=== PATIENT | female | born 1985 | race African-American/Black ===

== ENCOUNTER 2024-12-16 18:33 | Emergency (ER) | payer OTHER, SELFPAY ==
--- OUTSIDE RECORDS SUMMARY | 2024-12-16 18:36 | XMS_ITS | Clinical Summary ---
Author Organization [facility] Address [address] [place] [address] Care Team Providers Care Net Programmer Name Role Phone Unknown, Notinfile Primary Care Provider Unavail able Unknown, Notinfile Unavailable Unavailable Allergies No known active allergies Medications cyclobenzaprine (FLEXERIL) 10 mg tablet Take 1 tablet (10 mg total) by mouth 3 (three) times a day as needed for muscle spasms for up to 20 doses 20 tablet 1 Active lidocaine (LIDODERM) 5 %Indications:Pain Place 1 patch on the skin daily Use patch for 12 hours on, 12 hours off. Discard after each use 7 patch 1 Active ketorolac (TORADOL) 10 mg tablet Take 1 tablet (10 mg total) by mouth every 6 (six) hours as needed for pain 20 tablet 1 Active dicyclomine (BENTYL) 20 mg tablet Take 1 tablet (20 mg total) by mouth 2 (two) times a day 20 tablet 2 Active ondansetron ODT (ZOFRAN-ODT) 4 mg disintegrating tablet Take 1 tablet (4 mg total) by mouth every 8 (eight) hours as needed for vomiting or nausea 20 tablet 5 Active HYDROcodone-acetami nophen (NORCO) 5-325 mg per tabletIndications:P ain Take 1 tablet by mouth every 6 (six) hours as needed for pain 12 tablet 5 Active docusate sodium (COLACE) 100 mg capsuleIndications: constipation Take 1 capsule (100 mg total) by mouth every 12 (twelve) hours 60 capsule Active Encounters Date Type Department Care Team Description 10/10/2024 1:49 AM LEGAL CONSULTANT - 10/10/2024 5:45 AM LEGAL CONSULTANT Emergency [facility] [address] [place] [address] Hans Vang, Vaginal bleeding affecting early (Primary Dx) Discharge Disposition: Discharge to home or self care 10/10/2024 Telephone [facility] Obstetrical Gynecology [facility] [address] [place] [phone] Ajay Haro MD from Last 3 Months Immunizations Immunization Administration Dates Next Due Pfizer SARS-CoV-2 Monovalent Vaccination (12+ Yrs) PURPLE 07/05/2021 Social History Tobacco Use Types Packs/Day Years Used Date Smoking Tobacco: Never Assessed Personal Safety Answer Date Recorded Have you ever been in or are you currently in a harmful physical or emotional relationship or is someone making you feel afraid or unsafe? Denies 10/09/2024 Comments No Sex and Gender Information Value Date Recorded Sex Assigned at Not on file Legal Sex Female 7:05 PM LEGAL CONSULTANT Gender Identity Not on file Sexual Orientation Not on file Obstetrics History Last Filed Vital Signs Vital Sign Reading Time Taken Comments Blood Pressure 121/70 10/10/2024 5:09 AM LEGAL CONSULTANT Pulse 72 10/10/2024 5:09 AM LEGAL CONSULTANT Temperature 37 C (98.6 F) 10/09/2024 9:23 PM LEGAL CONSULTANT Respiratory Rate 16 10/10/2024 5:09 AM LEGAL CONSULTANT Oxygen Saturation 100% 10/10/2024 5:09 AM LEGAL CONSULTANT Inhaled Oxygen Concentration - - Weight 77.1 kg (170 lb) 10/09/2024 9:23 PM LEGAL CONSULTANT Height 160 cm (5' 3 ) 10/09/2024 9:23 PM LEGAL CONSULTANT Body Mass Index 30.11 10/09/2024 9:23 PM LEGAL CONSULTANT Plan of Treatment Health Maintenance Due Date Last Done Comments Cervical Cancer Screening 1987 Depression Screening 1987 Hepatitis C Screening 1987 DTaP/Tdap/Td Vaccine (5 - Tdap) 1998 10/28/1991, 09/05/1991, 08/07/1988, Additional history exists Varicella Vaccines (1 of 2 - 13+ 2-dose series) 2000 Regular Well Visit/Exam 18-64 2005 Covid-19 Vaccine ( - season) 2024 07/05/2021 Influenza Vaccine (Season Ended) 2025 07/24/2018 Hepatitis B Screening Completed 10/21/1998 , 04/09/1998, 01/14/1998 HPV Vaccines Aged Out No longer eligi ble based on patient's age to complete this topic Pneumococcal vaccine <65 Aged Out No longer eligible based on patient's age to complete this topic Procedures Procedure Name Priority Date/Time Associated Diagnosis Comments US OB TRANSVAGINAL ED Urgent/IP Urgent 10/10/2024 4:11 AM LEGAL CONSULTANT TROPONIN T HIGH-SENSITIVITY 6-HOUR Timed 10/10/2024 3:44 AM LEGAL CONSULTANT B ABO / RH CONFIRMATION TESTING STAT 10/10/2024 1:59 AM LEGAL CONSULTANT TROPONIN T HIGH-SENSITIVITY 4-HR Timed 10/10/2024 1:59 AM LEGAL CONSULTANT ECG 12-LEAD STAT 10/09/2024 10:25 PM LEGAL CONSULTANT ANTIBODY SCREEN Timed 10/09/2024 10:21 PM LEGAL CONSULTANT ABO/RH Timed 10/09/2024 10:21 PM LEGAL CONSULTANT TYPE AND SCREEN Timed 10/09/2024 10:21 PM LEGAL CONSULTANT POCT HCG, URINE Routine 10/09/2024 10:14 PM LEGAL CONSULTANT URINALYSIS, MICROSCOPIC ONLY STAT 10/09/2024 10:09 PM LEGAL CONSULTANT URINE CULTURE STAT 10/09/2024 10:09 PM LEGAL CONSULTANT URINALYSIS AND REFLEX TO MICROSCOPIC AND CULTURE STAT 10/09/2024 10:09 PM LEGAL CONSULTANT EGFR STAT 10/09/2024 9:43 PM LEGAL CONSULTANT HCG, BLOOD, QUANTITATIVE Add-On 10/09/2024 9:43 PM LEGAL CONSULTANT DIFFERENTIAL AUTO STAT 10/09/2024 9:4 3 PM LEGAL CONSULTANT TROPONIN T HIGH-SENSITIVITY SERIES (BASELINE, 2HR, 4HR, 6HR) STAT 10/09/2024 9:43 PM LEGAL CONSULTANT LIPASE STAT 10/09/2024 9:43 PM LEGAL CONSULTANT COMPREHENSIVE METABOLIC PANEL STAT 10/09/2024 9:43 PM LEGAL CONSULTANT CBC WITH AUTO DIFFERENTIAL STAT 10/09/2024 9:43 PM LEGAL CONSULTANT from Last 3 Months Results * US Ob Transvaginal (10/10/2024 4:11 AM LEGAL CONSULTANT) Anatomical Region Laterality Modality Abdomen N/A Ultrasound 10/10/2024 4:16 AM LEGAL CONSULTANT Narrative 10/10/2024 4:26 AM LEGAL CONSULTANT EXAM DESCRIPTION: US OB TRANSVAGINAL REASON FOR STUDY: ectopic , pain with Beta-hC,621 TECHNIQUE: Transvaginal images acquired of the pelvis. COMPARISON: 04/01/2021 FINDINGS: UTERUS: 11 x 6 x 3 cm. Heterogeneous is 2.6 cm endometrial stripe, possible debris. No intrauterine gestation is seen. RIGHT OVARY: 3 x 1.6 x 1.3 cm. Patent blood flow. No concerning abnormality identified. LEFT OVARY: 3.5 x 2.3 x 2.3 cm. Patent blood flow. 2 cm corpus luteum with trace free fluid. IMPRESSION: No intrauterine or ectopic gestation identified. Nonspecific endometrial thickening. Left corpus luteum. THIS IS AN ELECTRONICALLY VERIFIED FINAL REPORT 10/10/2024 4:26 AM - Electronically signed by Pedro Irene M.D. AR T: Report ID: [id number] Reading Location: [id number] Procedure Note Pedro Irene MD - 10/10/2024 EXAM DESCRIPTION: US OB TRANSVAGINAL REASON FOR STUDY: ectopic , pain with Beta-hC,621 TECHNIQUE: Transvaginal images acquired of the pelvis. COMPARISON: 04/01/2021 FINDINGS: UTERUS: 11 x 6 x 3 cm. Heterogeneous is 2.6 cm endometrial stripe,possible debris. No intrauterine gestation is seen. RIGHT OVARY: 3 x 1.6 x 1.3 cm. Patent blood flow. No concerning abnormality identified. LEFT OVARY: 3.5 x 2.3 x 2.3 cm. Patent blood flow. 2 cm corpus luteumwith trace free fluid. IMPRESSION: No intrauterine or ectopic gestation identified. Nonspecific endometrial thickening. Left corpus luteum. THIS IS AN ELECTRONICALLY VERIFIED FINAL REPORT 10/10/2024 4:26 AM - Electronically signed by Pedro Irene M.D. AR T: Report ID: [id number] Reading Location: [place] [address] Hans Vang DO IMG OB US PROCEDURES Final Result * (ABNORMAL) Troponin T high-sensitivity 6-hour (10/10/2024 3:44 AM LEGAL CONSULTANT) Trop T hs 21(H) <=14 ng/L Comment: Interpretive Data For further hscTnT resources including the diagnostic algorithm and an aid in interpretation, copy and paste this link: https://nrl.testcatalog.org/show/hsTrop Current Interpretive Data last revised 2020. Trop T hs delta -7 ng/L KADEEM SANCHEZ Trop T hs interp Equivocal KADEEM SANCHEZ Blood 10/10/2024 3:44 AM LEGAL CONSULTANT 10/10/2024 3:47 AM LEGAL CONSULTANT Tushar Meyer MD LAB BLOOD ORDERABLES Final Result KADEEM SANCHEZ [address] [facility] Department of Laboratories [place], [place] [id number] * (ABNORMAL) Troponin T high-sensitivity 4-hour (10/10/2024 1:59 AM LEGAL CONSULTANT) Pathologist [facility] Trop T hs 23(H) <=14 ng/L Comment: Interpretive Data For further hscTnT resources including the diagnostic algorithm and an aid in interpretation, copy and paste this link: https://nrl.testcatalog.org/show/hsTrop Current Interpretive Data last revised 2020. Trop T hs delta -5 ng/L [facility] Trop T hs interp Equivocal [facility] Blood 10/10/2024 1:59 AM LEGAL CONSULTANT 10/10/2024 2:02 AM LEGAL CONSULTANT Tushar Meyer MD LAB BLOOD ORDERABLES Final Result Performing Organization Address [facility] Co de Phone Number [address] [place] [address] * ABO / Rh Confirmation Testing (10/10/2024 1:59 AM LEGAL CONSULTANT) [facility] ABO/Rh Confirmation A Positive [facility] Blood 10/10/2024 1:59 AM LEGAL CONSULTANT 10/10/2024 2:02 AM LEGAL CONSULTANT Jania LIU LAB BLOOD ORDERABLES Final R esult Performing Organization Address [facility] Co de Phone Number [address] [place] [address] [facility] * ECG 12 lead (10/09/2024 10:25 PM LEGAL CONSULTANT) [facility] Ventricular Rate EKG/Min 72 BPM [facility] Atrial Rate 72 BPM [facility] OK-Interval (MSEC) 152 ms [facility] QRS-Interval (MSEC) 72 ms [facility] QT-Interval (MSEC) 362 ms [facility] QTc 396 ms [facility] P [place] 57 degrees [facility] R [place] 36 degrees [facility] T [place] 29 degrees [facility] Diagnosis Normal sinus rhythm Normal ECG Confirmed by JAX ONEIL M.D. ([id number]) on 10/10/2024 11:23:51 PM [facility] 10/09/2024 10:2 5 PM LEGAL CONSULTANT 10/10/2024 11:23 PM LEGAL CONSULTANT Result [facility] Hans Vang DO ECG ORDERABLES Final Resul t Performing Organization Address [facility] Co de Phone Number [facility] * ABO/Rh (10/09/2024 10:21 PM LEGAL CONSULTANT) ABO/Rh A Positive Blood 10/09/2024 10:2 1 PM LEGAL CONSULTANT 10/09/2024 10:25 PM LEGAL CONSULTANT Narrative [facility] - 10/09/2024 11:20 PM LEGAL CONSULTANT Has the patient had Daratumumab or Isatuximab in the past 6 months?->Unknown Result [facility] Jania LIU LAB BLOOD BANK TEST ORDERABL ES Final Result Performing Organization Address [facility] de Phone Number [address] [place] [address] * Antibody screen (10/09/2024 10:21 PM LEGAL CONSULTANT) Yehuda, indirect, Gel Interpretation Negative ABSC Blood 10/09/2024 10:2 1 PM LEGAL CONSULTANT 10/09/2024 10:25 PM LEGAL CONSULTANT Narrative [facility] 10/09/2024 11:20 PM LEGAL CONSULTANT Has the patient had Daratumumab or Isatuximab in the past 6 months?->Unknown Result [facility] Jania LIU LAB BLOOD BANK TEST ORDERABL ES Final Result Performing Organization Address [facility] de Phone Number [address] [place] [address] * (ABNORMAL) POCT hCG, urine (10/09/2024 10:14 PM LEGAL CONSULTANT) HCG, ur, POC Positive(A) Negative Lot Number [id number] QC Backgroud Clear Acceptable QC Control Line Acceptable Urine 10/09/2024 10:1 4 PM LEGAL CONSULTANT Hans Vang DO POINT OF CARE TEST ORDERABL ES Final Result * (ABNORMAL) Urinalysis reflex to microscopic and culture Urine (10/09/2024 10:09 PM LEGAL CONSULTANT) Color, ur Red(A) Yellow Clarity, ur Turbid(A) Clear [facility] Specific gravity, ur 1.031(H) 1.003 - 1.030 [facility] pH, urine 5.5 [facility] Comment: Interpretive Data U rine pH is affected by diet, medications, systemic acid-base disturbances, and renal tubular function. pH may affect urinary stone formation. For example, urine pH below 6.0 may help reduce the tendency for calcium phosphate stones and pH greater than 6.0 may reduce the tendency for uric acid stone formation. Source: [facility] Current Interpretive Data was last revised on 2017 Protein, ur ql 2+(A) Negative [facility] Glucose, ur ql Negative Negative [facility] Ketones, ur Negative Negative [facility] Bilirubin, ur Negative Negative [facility] Blood, ur 3+(A) Negative [facility] Urobilinogen, ur <2.0 <2.0 mg/dL [facility] Nitrite, ur Negative Negative [facility] Leukocyte esterase, ur 2+(A) Negative [facility] UA reflex comment Reflex to microscopic UA will be performed. [facility] Urine 10/09/2024 10:0 9 PM LEGAL CONSULTANT 10/09/2024 10:19 PM LEGAL CONSULTANT Hans Vang DO LAB MICROBIOLOGY - GENERAL ORDERABLES Final Result KADEEM [address] [facility] Department [place] [address] * (ABNORMAL) Urinalysis, microscopic only (10/09/2024 10:09 PM LEGAL CONSULTANT) WBC, ur 11-20(A) 0 - 5 /HPF RBC, ur >50(A) 0 - 2 /HPF [facility] Mucous, ur Present(A) [facility] Culture Reflex Comment Reflex to urine culture will be performed. [facility] Urine 10/09/2024 10:0 9 PM LEGAL CONSULTANT 10/09/2024 10:19 PM LEGAL CONSULTANT Hans Vang DO LAB URINE ORDERABLES Final Result Performing Organization Address [facility] de Phone Number [address] [address] * Urine culture Urine (10/09/2024 10:09 PM LEGAL CONSULTANT) Report Final Report: Less than 100,000 colonies/mL (clinically insignificant growth based on current clinical standards) Comment:Testing performed by : [facility], [address] [place] [address] Organism (CLINICALLY INSIGNIFICANT GROWTH [facility] Urine 10/09/2024 10:0 9 PM LEGAL CONSULTANT 10/10/2024 1:55 AM LEGAL CONSULTANT Narrative [facility] - 10/11/2024 6:37 AM LEGAL CONSULTANT Urine culture reflexed based upon urinalysis results. Testing performed by [facility] Microbiology Laboratory ([phone]) Tushar Meyer MD LAB MICROBIOLOGY - GENERAL ORDERABLES Final Result Performing Organization Address [facility] de Phone Number [address] [address] * (ABNORMAL) Troponin T high-sensitivity series (baseline, 2hr, 4hr, 6hr) (10/09/2024 9:43 PM LEGAL CONSULTANT) Trop T hs 28(H) <=14 ng/L Comment: Interpretive Data For further hscTnT resources including the diagnostic algorithm and an aid in interpretation, copy and paste this link: https://nrl.testcatalog.org/show/hsTrop Current Interpretive Data last revised 2020. Blood 10/09/2024 9:43 PM LEGAL CONSULTANT 10/09/2024 9:57 PM LEGAL CONSULTANT Hans Vang DO LAB BLOOD ORDERABLES Final Result Performing Organization Address [facility] Co de Phone Number KADEEM [address] Department [place] [address] * eGFR (10/09/2024 9:43 PM LEGAL CONSULTANT) [facility] eGFR >90 >=60 mL/min/1. 73 m2 Comment: Interpretive Data Reference Interval Normal >/= 90 mL/min/1.73m2 Mildly decreased* 60 - 89 mL/min/1.73m2 Mildly to moderately decreased 45 - 59 mL/min/1.73m2 Moderately to severely decreased 30 - 44 mL/min/1.73m2 Severely decreased 15 - 29 mL/min/1.73m2 Kidney Failure < 15 mL/min/1.73m2 *Relative to young adult level Estimated glomerular filtration rate is determined by the 2020 CKD-EPI equation recommended by the National Kidney Foundation (A Unifying Approach to GFR Estimation: Recommendations of the NKF-ASK Task Force on Reassessing the Inclusion of Race in Diagnosing Kidney Disease, JASN 2020). The CKD-EPI equation should not be used for patients with unstable renal function and has not been validated in children and those over 70. Current interpretive data was last reviewed 2021. Blood 10/09/2024 9:43 PM LEGAL CONSULTANT 10/09/2024 9:57 PM LEGAL CONSULTANT Hans Vang DO LAB BLOOD ORDERABLES Final Result Performing Organization Address [facility] Co de Phone Number KADEEM [address] Department [place] [address] * (ABNORMAL) Differential, auto (10/09/2024 9:43 PM LEGAL CONSULTANT) [facility] Neutrophil abs 7.4(H) 1.5 - 6.5 K/cumm Imm gran abs 0.2(H) 0.0 - 0.1 K/cumm [facility] Lymphocyte abs 1.9 0.8 - 3.3 K/cumm [facility] Monocyte abs 1.2(H) 0.2 - 0.8 K/cumm [facility] Eosinophil abs 0.2 0.0 - 0.5 K/cumm [facility] Basophil abs 0.1 0.0 - 0.1 K/cumm [facility] Neutrophil pct 68.2 % [facility] Comment: Interpretive Data Percent cell count reference ranges are not reported, since discordance with absolute values may lead to misinterpretation of CBC data. Current Interpretive Data was last revised on 2017. Imm gran pct 1.5 % [facility] Comment: Interpretive Data Percent cell count reference ranges are not reported, since discordance with absolute values may lead to misinterpretation of CBC data. Current Interpretive Data was last revised on 2017. Lymphocyte pct 17.3 % [facility] Comment: Interpretive Data Percent cell count reference ranges are not reported, since discordance with absolute values may lead to misinterpretation of CBC data. Current Interpretive Data was last revised on 2017. Monocyte pct 11.1 % [facility] Comment: Interpretive Data Percent cell count reference ranges are not reported, since discordance with absolute values may lead to misinterpretation of CBC data. Current Interpretive Data was last revised on 2017. Eosinophil pct 1.4 % [facility] Comment: Interpretive Data Percent cell count reference ranges are not reported, since discordance with absolute values may lead to misinterpretation of CBC data. Current Interpretive Data was last revised on 2017. Basophil pct 0.5 % [facility] Comment: Interpretive Data Percent cell count reference ranges are not reported, since discordance with absolute values may lead to misinterpretation of CBC data. Current Interpretive Data was last revised on 2017. Blood 10/09/2024 9:43 PM LEGAL CONSULTANT 10/09/2024 9:57 PM LEGAL CONSULTANT Hans Vang DO LAB BLOOD ORDERABLES Final Result [facility] [address] [facility] Department [place] [address] * (ABNORMAL) CBC with auto differential (10/09/2024 9:43 PM LEGAL CONSULTANT) WBC 10.8(H) 3.8 - 9.9 K/cumm Hgb 11.4(L) 11.9 - 15.5 g/dL [facility] Hct 33.1(L) 35.6 - 45.5 % [facility] Plt 284 150 - 400 K/cumm [facility] MPV 9.8 9.1 - 12.3 fL [facility] RBC 3.58(L) 3.90 - 5.20 M/cumm [facility] MCV 92.5 81.3 - 96.4 fL [facility] MCH 31.8 27.1 - 33.3 pg [facility] MCHC 34.4 32.3 - 35.7 g/dL [facility] RDW CV 12.8 11.1 - 14.9 % [facility] RDW SD 43.8 35.7 - 48.1 fL [facility] NRBC abs 0.00 0.00 - 0.01 K/cumm [facility] Blood Venous blood specimen / Unknown 10/09/2024 9:43 PM LEGAL CONSULTANT 10/09/2024 9:57 PM LEGAL CONSULTANT Hans Vang DO LAB BLOOD ORDERABLES Final Result Performing Organization Address [facility] de Phone Number [address] [employer] [place] [address] * (ABNORMAL) hCG, blood, quantitative (10/09/2024 9:43 PM LEGAL CONSULTANT) [facility] hCG, quant 45,621.0( H) 0.0 - 5.0 IUnits/L Comment: Interpretive Data Male: < 5 IU/L Non- premenopausal Female: <5 IU/L The [employer] hCG Beta Quant assay procedure was used. Results from different manufacturers or methods may not be comparable. Serial testing should be performed using the same method. Interpretive Data was last revised on 2023 Blood 10/09/2024 9:43 PM LEGAL CONSULTANT 10/09/2024 10:20 PM LEGAL CONSULTANT Jania LIU LAB BLOOD ORDERABLES Final R esult Performing Organization Address [facility] Co de Phone Number [address] [place] [address] * Lipase (10/09/2024 9:43 PM LEGAL CONSULTANT) Lipase 28 10 - 99 Units/L Blood Venous blood specimen / Unknown 10/09/2024 9:43 PM LEGAL CONSULTANT 10/09/2024 9:57 PM LEGAL CONSULTANT Hans Vang DO LAB BLOOD ORDERABLES Final Result [facility] [address] [facility] Department [place] [address] * (ABNORMAL) Comprehensive metabolic panel (10/09/2024 9:43 PM LEGAL CONSULTANT) Sodium 131(L) 135 - 145 mmol/L Potassium, pl 3.4 3.3 - 4.9 mmol/L [facility] Chloride 99 97 - 110 mmol/L [facility] CO2 22 22 - 32 mmol/L [facility] Anion gap 10 2 - 15 mmol/L [facility] BUN 9 6 - 25 mg/dL [facility] Creatinine 0.73 0.60 - 1.10 mg/dL [facility] Glucose 107 70 - 199 mg/dL [facility] Comment: Interpretive Data Fasting glucose >/= 126 mg/dl is diagnostic for diabetes. Fasting is defined as no caloric intake for at least 8 hours. Fasting glucose between 100 mg/dl to 125 mg/dl is diagnostic of prediabetes. In a patient with classic symptoms of hyperglycemia or hyperglycemic crisis, a random glucose >/= 200 mg/dl is diagnostic for diabetes. In the absence of unequivocal hyperglycemia, results should be confirmed by repeat testing. The classification and Diagnosis of Diabetes Diabetes Care 2021; 46: S19-S40. Current interpretive data was last revised 2022. Calcium 8.9 8.5 - 10.3 mg/dL [facility] Bilirubin, total 0.5 0.1 - 1.2 mg/dL [facility] Protein, pl 7.3 6.5 - 8.5 g/dL [facility] Albumin 3.8 3.5 - 5.0 g/dL [facility] Alk phos 62 40 - 130 Units/L [facility] ALT 17 7 - 45 Units/L [facility] AST 32 10 - 45 Units/L [facility] Blood 10/09/2024 9:43 PM LEGAL CONSULTANT 10/09/2024 9:57 PM LEGAL CONSULTANT Hans Vang DO LAB BLOOD ORDERABLES Final Result KADEEM SANCHEZ [address] [facility] Department [place] [address] from Last 3 Months Insurance [facility] [employer] [employer] [facility] [employer] Address: [facility] [id number] [phone] Care Teams Net Programmer Relationship Specialty Start Date End Date Unknown, Notinfile PCP - General 04/15/22 Unknown, Notinfile 04/15/22
--- OUTSIDE RECORDS SUMMARY | 2024-12-16 18:36 | XMS_ITS | Clinical Summary ---
Author Organization [facility] Address [address] [place] [address] Care Team Providers Care Writing Center Director Name Role Phone Dyana Swan Primary Care Provider [phone] Source Comments [facility] rehabilitation [facility] Affiliates and Associated Physician Practices is amultiple site organization consisting of ambulatory clinics and hospital sitesin [place], [place], [place] and [place]. This disclosure is being madepursuant to the Care Everywhere program and may not contain all information available regarding this patient. 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 Gender Identity Not on file Sexual Orientation Not on file Plan of Treatment Health Maintenance Due Date Last Done Comments HIV SCREENING 2002 HEPATITIS C SCREENING 10/13/2005 DTAP/TDAP/TD VACCINES (1 - Tdap) 2006 HEPATITIS B VACCINE (1 of 3 - 19+ 3-dose series) 2006 COVID-19 VACCINE ( - 2023-2 5 season) 2024 DEPRESSION SCREENING 08/27/2024 INFLUENZA VACCINE (Season Ended) 2025 ZOSTER VACCINE (1 of 2) 2037 HIB VACCINE Aged Out No longer eligi ble based on patient's age to complete this topic HPV VACCINE Aged Out No longer eligi ble based on patient's age to complete this topic MENINGOCOCCAL (Group B) VACC INE SHARED DECISION-MAKING Aged Out No longer eligibl e based on patient's age to complete this topic MENINGOCOCCAL GROUPS A/C/Y/W VACCINE Aged Out No longer eligible b ased on patient's age to complete this topic PNEUMOCOCCAL VACCINE Aged Out No long er eligible based on patient's age to complete this topic Insurance [facility] Care Teams Writing Center Director Relationship Specialty Start Date End Date Dyana Swan PA [address] [place] [address] [place] [id number] PCP - General 01/22/18
--- OUTSIDE RECORDS SUMMARY | 2024-12-16 18:36 | XMS_ITS | Encounter Summary ---
Author Organization [facility] Address [facility] [place] [address] Care Team Providers Care Lock Stitch Channeler Name Role Phone Keith Jain MD Primary Care Provider [phone] Rut Gandara MD Primary Care Provider [phone] Encounter Details Date Type Department Care Team (Late st Contact Info) Description 05/29/2018 Hospital Follow-up Call [facility] [place] [address] Kerline Berg RN Social History Tobacco Use Types Packs/Day Years Used Date Smoking Tobacco: Never Smokeless Tobacco: Never Alcohol Use Standard Drinks/Week Comments No 0 (1 standard drink = 0.6 oz pur e alcohol) AUDIT-C Answer Date Recorded Frequency of Alcohol Consumption Never 05/14/2018 Average Number of Drinks Not on file 018 Frequency of Binge Drinking Not on file 04/27 Comments No Sex and Gender Information Value Date Recorded Sex Assigned at Not on file Legal Sex Female 4:59 PM CDT Gender Identity Not on file Sexual Orientation Not on file documented as of this encounter Plan of Treatment Not on file documented as of this encounter Visit Diagnoses Not on filedocumented in this encounter Care Teams Lock Stitch Channeler Relationship Specialty Start Date End Date Keith Jain MD PCP - General 06/01/14 06/04/24 Rut Gandara MD 3 [facility], [address] [address] PCP - General FAMILY PRACTICE 06/05/24 documented as of this encounter
--- OUTSIDE RECORDS SUMMARY | 2024-12-16 18:36 | XMS_ITS | Clinical Summary ---
Author Organization [facility] Address [facility] [place] [address] Care Team Providers Care Tool Crib Attendant Name Role Phone Rut Gandara MD Primary Care Provider [phone] Allergies No known active allergies Medications vitamin, low iron, ( VITAMIN WITH IRON) 27-0.8 MG tablet Take 1 tablet by mouth daily. Active ferrous sulfate, 65 mg elemental, 325 (65 FE) MG tablet Take 325 mg by mouth daily with breakfast. Active hydrocodone-acet aminophen 5-325 MG tablet Take 1 tablet by mouth every 4 (four) hours as needed. 5 tablet 05/17/2018 Active Active Problems Problem Noted Date Diagnosed Date (spontaneous vaginal delivery) ([facility] [place]) Normal labor ([facility]) 05/15/2018 Immunizations Immunization Administration Dates Next Due Fluarix (IIV4) 05/17/2018(Deferred: Patient/fam jaylan declined) Family History Medical History Relation Comments Diabetes Mother TYPE 2 Relation Status Comments Mother Social History Tobacco Use Types Packs/Day Years [...] on file Sexual Orientation Not on file Last Filed Vital Signs Vital Sign Reading Time Taken Comments Blood Pressure 120/89 05/17/2018 8:15 AM CDT Pulse 57 05/17/2018 8:15 AM CDT Temperature 36.8 C (98.3 F) 05/17/2018 8:15 AM CDT Respiratory Rate 18 05/17/2018 8:15 AM CDT Oxygen Saturation 99% 05/17/2018 8:15 AM CDT Inhaled Oxygen Concentration - - Weight 73.9 kg (163 lb) 05/14/2018 10:47 PM CDT Height 160 cm (5' 3 ) 05/14/2018 10:47 PM CDT Body Mass Index 28.87 05/14/2018 10:47 PM CDT Plan of Treatment Health Maintenance Due Date Last Done Comments Cervical Cancer Screening Pap Smear (Age 30 to 64) Every 3 Years 1987 Annual Physical 1990 Hepatitis C 2005 DTaP, Tdap and Td Vaccines (1 - Tdap) 2006 10/28/1991, 09/05/1991, 08/07/1988, Additional history exists Cervical Cancer Screening Pap with HPV Testing (Age 30 to 64) Every 5 Years 2017 Cervical Cancer Screening with HPV 2017 COVID-19 Vaccine ( season) 2024 07/05/2021 Hepatitis B Vaccines Completed 10/21/1998, 04/09/1998, 01/14/1998 HPV Vaccines Aged Out No longer eligi ble based on patient's age to complete this topic Meningococcal B Vaccine Aged Out No l onger eligible based on patient's age to complete this topic Meningococcal Vaccine Aged Out No miguel dayna eligible based on patient's age to complete this topic Pneumococcal Vaccine: Pediatrics (0 to 5 Years) and At-Risk Patients (6 to 49 Years) Aged Out No longer eligible based on patient's age to complete this topic RSV Immunizations Under 20 Months Aged Out No longer eligible based on patient's age to complete this topic Insurance [place] Advance Directives * Full Code (Latest Code Status on File) Date Activated Date Inactivated Comments 05/15/2018 12:50 PM 05/15/2018 10:45 PM Care Teams Tool Crib Attendant Relationship Specialty Start Date End Date Rut Gandara MD 3 [facility], [address] [id number] PCP - General FAMILY PRACTICE 06/05/24
--- OUTSIDE RECORDS SUMMARY | 2024-12-16 18:36 | XMS_ITS | Continuity of Care Document ---
Author Organization [facility] Address [address] [place] [address] Phone Care Team Providers Care French Folding Machine Operator Name Role Phone Unavailable Unavailable Unavailable Allergies, Adverse Reactions, Alerts Substance Reaction Status Criticality No Known Allergies Active No Inform ation Procedures Procedure Date X-RAY EXAM CHEST 2 VIEWS OFFICE/OUTPATIENT VISIT, EST Advance Directives Directive Yes / No Effective Date File Name No Information Encounters Encounter Description Practice Location Reason(s) For Visit Diagnoses Date Provider Providers Copied on Encounter [facility] , [address], [place], [place], [id number], tel:[phone] [facility] No Information No Information OFFICE/OUTPAT IENT VISIT, EST [facility] , [address], [place], [place], [id number], tel:[phone] [facility] [place] PPD result (chief complaint) Body mass index (BMI) 27.0-27.9, adultPPD positive No Information Family History Family Member Type Diagnosis Age At Onset No Information Payers Payer name Insurance type Covered libertarian ID Authoriza tion(s) No Information Social History Type Description Quantity Date Captured Comments Sex Female Smoking Status No Information Chief Complaint And Reason For Visit No Information Reason For Referral Reason For Referral No Information Plan Of Treatment Date Type Action Status Future Order: Lab Order QuantiFE ELKE(R)-TB Gold Plus ([id number]), Scheduled for: Ordered Nutrition Recommendation Nutrition therap y completed History Of Present Illness Encounter Date Complaint History Of Prese nt Illness PPD result pt here for posi tive PPD1st PPD placed - did not return for [id number] PPD placed and 0 mm3rd PPD placed [...]
--- OUTSIDE RECORDS SUMMARY | 2024-12-16 18:36 | XMS_ITS | Encounter Summary ---
Author Organization [facility] Address [facility] [place] [address] Care Team Providers Care Mill Operator Helper Name Role Phone Keith Jain MD Primary Care Provider [phone] Rut Gandara MD Primary Care Provider [phone] Encounter Details Date Type Department Care Team (Late st Contact Info) Description 05/30/2018 Hospital Follow-up Call [facility] [place] [address] Katherine Degroot RN Social History Tobacco Use Types Packs/Day [...] on filedocumented in this encounter Care Teams Mill Operator Helper Relationship Specialty Start Date End Date Keith Jain MD PCP - General 06/01/14 06/04/24 Rut Gandara MD 3 [facility], [address] [address] PCP - General FAMILY PRACTICE 06/05/24 documented as of this encounter
--- OUTSIDE RECORDS SUMMARY | 2024-12-16 18:36 | XMS_ITS | Referral Summary ---
Author Organization [facility] Address [address] [place] [id number] Care Team Providers Care Cheese Packer Name Role Phone Unknown, Notinfile Primary Care Provider Unavail able Unknown, Notinfile Unavailable Unavailable Encounters Date Type Department Care Team Description 10/10/2024 Telephone [facility] Obstetrical Gynecology [address] [place] [address] [address] [place] [address] Ajay Haro MD 10/10/2024 1:49 AM WHARF HELPER - 10/10/2024 5:45 AM [facility] Emergency [address] [address] Hans Vang DO Vaginal bleeding affecting early (Primary Dx) Discharge Disposition: Discharge to home or self care from Last 3 Months Allergies No known active allergies Medications cyclobenzaprine [...] mouth every 12 (twelve) hours 60 capsule 5 Active Immunizations Immunization Administration Dates Next Due Pfizer [...] on file Legal Sex Female 7:05 PM WHARF HELPER Gender Identity Not on file Sexual Orientation Not on file Last Filed Vital Signs Vital Sign Reading Time Taken Comments Blood Pressure 121/70 10/10/2024 5:09 AM WHARF HELPER Pulse 72 10/10/2024 5:09 AM WHARF HELPER Temperature 37 C (98.6 F) 10/09/2024 9:23 PM WHARF HELPER Respiratory Rate 16 10/10/2024 5:09 AM WHARF HELPER Oxygen Saturation 100% 10/10/2024 5:09 AM WHARF HELPER Inhaled Oxygen Concentration - - Weight 77.1 kg (170 lb) 10/09/2024 9:23 PM WHARF HELPER Height 160 cm (5' 3 ) 10/09/2024 9:23 PM WHARF HELPER Body Mass Index 30.11 10/09/2024 9:23 PM WHARF HELPER Plan of Treatment Not on file Procedures Procedure Name Priority Date/Time Associated Diagnosis Comments US OB TRANSVAGINAL ED Urgent/IP Urgent 10/10/2024 4:11 AM WHARF HELPER TROPONIN T HIGH-SENSITIVITY 6-HOUR Timed 10/10/2024 3:44 AM WHARF HELPER B ABO / RH CONFIRMATION TESTING STAT 10/10/2024 1:59 AM WHARF HELPER TROPONIN T HIGH-SENSITIVITY 4-HR Timed 10/10/2024 1:59 AM WHARF HELPER ECG 12-LEAD STAT 10/09/2024 10:25 PM WHARF HELPER ANTIBODY SCREEN Timed 10/09/2024 10:21 PM WHARF HELPER ABO/RH Timed 10/09/2024 10:21 PM WHARF HELPER TYPE AND SCREEN Timed 10/09/2024 10:21 PM WHARF HELPER POCT HCG, URINE Routine 10/09/2024 10:14 PM WHARF HELPER URINALYSIS, MICROSCOPIC ONLY STAT 10/09/2024 10:09 PM WHARF HELPER URINE CULTURE STAT 10/09/2024 10:09 PM WHARF HELPER URINALYSIS AND REFLEX TO MICROSCOPIC AND CULTURE STAT 10/09/2024 10:09 PM WHARF HELPER EGFR STAT 10/09/2024 9:43 PM WHARF HELPER HCG, BLOOD, QUANTITATIVE Add-On 10/09/2024 9:43 PM WHARF HELPER DIFFERENTIAL AUTO STAT 10/09/2024 9:4 3 PM WHARF HELPER TROPONIN T HIGH-SENSITIVITY SERIES (BASELINE, 2HR, 4HR, 6HR) STAT 10/09/2024 9:43 PM WHARF HELPER LIPASE STAT 10/09/2024 9:43 PM WHARF HELPER COMPREHENSIVE METABOLIC PANEL STAT 10/09/2024 9:43 PM WHARF HELPER CBC WITH AUTO DIFFERENTIAL STAT 10/09/2024 9:43 PM WHARF HELPER from Last 3 Months Results * US Ob Transvaginal (10/10/2024 4:11 AM WHARF HELPER) Anatomical Region Laterality Modality Abdomen N/A Ultrasound 10/10/2024 4:16 AM WHARF HELPER Narrative 10/10/2024 4:26 AM WHARF HELPER EXAM DESCRIPTION: US OB TRANSVAGINAL REASON FOR [...] Pedro Irene M.D. AR T: Report ID: [id number] Reading Location: [id number] Procedure Note Pedro Irene MD - 10/10/2024 [...] Pedro Irene M.D. AR T: Report ID: [id number] Reading Location: [id number] Hans August Vang DO IMG OB US PROCEDURES Final Result * (ABNORMAL) Troponin T high-sensitivity 6-hour (10/10/2024 3:44 AM WHARF HELPER) Trop T hs 21(H) <=14 ng/L Comment: Interpretive Data For further hscTnT resources including the diagnostic algorithm and an aid in interpretation, copy and paste this link: https://nrl.[employer].org/show/hsTrop Current Interpretive Data last revised 2020. Trop T hs delta -7 ng/L KADEEM Trop T hs interp Equivocal [facility] Blood 10/10/2024 3:44 AM WHARF HELPER 10/10/2024 3:47 AM WHARF HELPER Tushar Meyer MD LAB BLOOD ORDERABLES Final Result Performing Organization Address [facility] de Phone Number [address] [employer] [place] [address] * (ABNORMAL) Troponin T high-sensitivity 4-hour (10/10/2024 1:59 AM WHARF HELPER) Trop T hs 23(H) <=14 ng/L Comment: Interpretive Data For further hscTnT resources including the diagnostic algorithm and an aid in interpretation, copy and paste this link: https://nrl.[employer].org/show/hsTrop Current Interpretive Data last revised 2020. Trop T hs delta -5 ng/L KADEEM Trop T hs interp Equ[employer]ocal [facility] Blood 10/10/2024 1:59 AM WHARF HELPER 10/10/2024 2:02 AM WHARF HELPER Tushar Meyer MD LAB BLOOD ORDERABLES Final Result Performing Organization Address [facility] Co de Phone Number [address] [employer] [address] * ABO / Rh Confirmation Testing (10/10/2024 1:59 AM WHARF HELPER) ABO/Rh Confirmation A Positive [facility] Blood 10/10/2024 1:59 AM WHARF HELPER 10/10/2024 2:02 AM WHARF HELPER Jania LIU LAB BLOOD ORDERABLES Final R esult Performing Organization Address [facility]/ZIP Co de Phone Number [facility] [address] [facility] Department [place] [address] M[facility] * ECG 12 lead (10/09/2024 10:25 PM WHARF HELPER) Ventricular Rate EKG/Min 72 BPM [facility] Atrial Rate 72 BPM [facility] PA-Interval (MSEC) 152 ms [facility] QRS-Interval (MSEC) 72 ms [facility] QT-Interval (MSEC) 362 ms [facility] QTc 396 ms [facility] P [place] 57 degrees [facility] R [place] 36 degrees [facility] T [place] 29 degrees [facility] Diagnosis Normal sinus rhythm Normal ECG Confirmed by JAX ONEIL M.D. ([id number]) on 10/10/2024 11:23:51 PM [facility] 10/09/2024 10:2 5 PM WHARF HELPER 10/10/2024 11:23 PM WHARF HELPER Hans Vang DO ECG ORDERABLES Final Resul t Performing Organization Address [facility] de Phone Number [facility] * ABO/Rh (10/09/2024 10:21 PM WHARF HELPER) ABO/Rh A Positive Blood 10/09/2024 10:2 1 PM WHARF HELPER 10/09/2024 10:25 PM WHARF HELPER Narrative KADEEM - 10/09/2024 11:20 PM WHARF HELPER Has the patient had Daratumumab or Isatuximab in the past 6 months?->Unknown Jania LIU LAB BLOOD BANK TEST ORDERABL ES Final Result Performing Organization Address [facility] Co de Phone Number [facility] [address] [place] [address] * Antibody screen (10/09/2024 10:21 PM WHARF HELPER) Pathologist [facility] Yehuda, indirect, Gel Interpretation Negative ABSC Blood 10/09/2024 10:2 1 PM WHARF HELPER 10/09/2024 10:25 PM WHARF HELPER Narrative [facility] - 10/09/2024 11:20 PM WHARF HELPER Has the patient had Daratumumab or Isatuximab in the past 6 months?->Unknown Jania LIU LAB BLOOD BANK TEST ORDERABL ES Final Result Performing Organization Address [facility] Co de Phone Number [facility] [address] [place] [address] * (ABNORMAL) POCT hCG, urine (10/09/2024 10:14 PM WHARF HELPER) [facility] HCG, ur, POC Positive(A) Negative Lot Number [id number] QC Backgroud Clear Acceptable QC Control Line Acceptable Urine 10/09/2024 10:1 4 PM WHARF HELPER Hans Vang DO POINT OF CARE TEST ORDERABL ES Final Result * (ABNORMAL) Urinalysis reflex to microscopic and culture Urine (10/09/2024 10:09 PM WHARF HELPER) [facility] Color, ur Red(A) Yellow Clarity, ur Turbid(A) Clear [facility] Specific gravity, ur 1.031(H) 1.003 - 1.030 [facility] pH, urine 5.5 [facility] Comment: Interpretive Data U rine pH is affected by diet, medications, systemic acid-base disturbances, and renal tubular function. pH may affect urinary stone formation. For example, urine pH below 6.0 may help reduce the tendency for calcium phosphate stones and pH greater than 6.0 may reduce the tendency for uric acid stone formation. Source: [facility] [place] Current Interpretive Data was last revised on 2017 Protein, ur ql 2+(A) Negative [facility] Glucose, ur ql Negative Negative [facility] Ketones, ur Negative Negative [facility] Bilirubin, ur Negative Negative [facility] Blood, ur 3+(A) Negative [facility] Urobilinogen, ur <2.0 <2.0 mg/dL [facility] Nitrite, ur Negative Negative [facility] Leukocyte esterase, ur 2+(A) Negative [facility] UA reflex comment Reflex to microscopic UA will be performed. [facility] Urine 10/09/2024 10:0 9 PM WHARF HELPER 10/09/2024 10:19 PM WHARF HELPER Hans Koch [facility] LAB MICROBIOLOGY - GENERAL ORDERABLES Final Result Performing Organization Address City/[facility] Co de Phone Number KADEEM [address] [place] [address] * (ABNORMAL) Urinalysis, microscopic only (10/09/2024 10:09 PM WHARF HELPER) WBC, ur 11-20(A) 0 - 5 /HPF RBC, ur >50(A) 0 - 2 /HPF [facility] Mucous, ur Present(A) [facility] Culture Reflex Comment Reflex to urine culture will be performed. [facility] Urine 10/09/2024 10:0 9 PM WHARF HELPER 10/09/2024 10:19 PM [facility] HELPER [facility]INE ORDERABLES Final Result Performing Organization Address City/[facility] Co de Phone Number [facility] [address] [place] [address] * Urine culture Urine (10/09/2024 10:09 PM WHARF HELPER) Report Final Report: Less than 100,000 colonies/mL (clinically insignificant growth based on current clinical standards) Comment:Testing performed by : [facility], [address] [facility], [place]., [address] Organism (CLINICALLY INSIGNIFICANT GROWTH [facility] Urine 10/09/2024 10:0 9 PM WHARF HELPER 10/10/2024 1:55 AM WHARF HELPER Narrative [facility] 10/11/2024 6:37 AM WHARF HELPER Urine culture reflexed based upon urinalysis results. Testing performed by [facility] ([phone]) Tushar Meyer MD LAB MICROBIOLOGY - GENERAL ORDERABLES Final Result Performing Organization Address [facility] Co de Phone Number [address] [address] * (ABNORMAL) Troponin T high-sensitivity series (baseline, 2hr, 4hr, 6hr) (10/09/2024 9:43 PM WHARF HELPER) Pathologist [facility] Trop T hs 28(H) <=14 ng/L Comment: Interpretive Data For further hscTnT resources including the diagnostic algorithm and an aid in interpretation, copy and paste this link: https://nrl.testcatalog.org/show/hsTrop Current Interpretive Data last revised 2020. Blood 10/09/2024 9:43 PM WHARF HELPER 10/09/2024 9:57 PM WHARF HELPER Hans Vang DO LAB BLOOD ORDERABLES Final Result Performing Organization Address [facility] Co de Phone Number [address] [address] * eGFR (10/09/2024 9:43 PM WHARF HELPER) [facility] eGFR >90 >=60 mL/min/1. 73 m2 [...] last reviewed 2021. Blood 10/09/2024 9:43 PM WHARF HELPER 10/09/2024 9:57 PM WHARF HELPER Hans Vang DO LAB BLOOD ORDERABLES Final Result [facility] [address] [facility] Department [place] [address] * (ABNORMAL) Differential, auto (10/09/2024 9:43 PM WHARF HELPER) Neutrophil abs 7.4(H) 1.5 - 6.5 K/cumm Imm gran abs 0.2(H) 0.0 - 0.1 K/cumm [facility] Lymphocyte abs 1.9 0.8 - 3.3 K/cumm [facility] Monocyte abs 1.2(H) 0.2 - 0.8 K/cumm [facility] Eosinophil abs 0.2 0.0 - 0.5 K/cumm [facility] Basophil abs 0.1 0.0 - 0.1 K/cumm [facility] Neutrophil pct 68.2 % [facility] Comment: Interpretive Data Percent cell count reference ranges are not reported, since discordance with absolute values may lead to misinterpretation of CBC data. Current Interpretive Data was last revised on 2017. Imm gran pct 1.5 % [facility] Comment: Interpretive Data Percent cell count reference ranges are not reported, since discordance with absolute values may lead to misinterpretation of CBC data. Current Interpretive Data was last revised on 2017. Lymphocyte pct 17.3 % [facility] Comment: Interpretive Data Percent cell count reference ranges are not reported, since discordance with absolute values may lead to misinterpretation of CBC data. Current Interpretive Data was last revised on 2017. Monocyte pct 11.1 % [facility] Comment: Interpretive Data Percent cell count reference ranges are not reported, since discordance with absolute values may lead to misinterpretation of CBC data. Current Interpretive Data was last revised on 2017. Eosinophil pct 1.4 % [facility] Comment: Interpretive Data Percent cell count reference ranges are not reported, since discordance with absolute values may lead to misinterpretation of CBC data. Current Interpretive Data was last revised on 2017. Basophil pct 0.5 % [facility] Comment: Interpretive Data Percent cell count reference ranges are not reported, since discordance with absolute values may lead to misinterpretation of CBC data. Current Interpretive Data was last revised on 2017. Blood 10/09/2024 9:43 PM WHARF HELPER 10/09/2024 9:57 PM WHARF HELPER Hans Vang DO LAB BLOOD ORDERABLES Final Result [facility] [address] [facility] Department [place] [address] * (ABNORMAL) CBC with auto differential (10/09/2024 9:43 PM WHARF HELPER) WBC 10.8(H) 3.8 - 9.9 K/cumm Hgb 11.4(L) 11.9 - 15.5 g/dL [facility] Hct 33.1(L) 35.6 - 45.5 % [facility] Plt 284 150 - 400 K/cumm [facility] MPV 9.8 9.1 - 12.3 fL [facility] RBC 3.58(L) 3.90 - 5.20 M/cumm [facility] MCV 92.5 81.3 - 96.4 fL [facility] MCH 31.8 27.1 - 33.3 pg [facility] MCHC 34.4 32.3 - 35.7 g/dL [facility] RDW CV 12.8 11.1 - 14.9 % [facility] RDW SD 43.8 35.7 - 48.1 fL [facility] NRBC abs 0.00 0.00 - 0.01 K/cumm [facility] Blood Venous blood specimen / Unknown 10/09/2024 9:43 PM WHARF HELPER 10/09/2024 9:57 PM WHARF HELPER Hans Vang LAB BLOOD ORDERABLES Final Result Performing Organization Address [facility] de Phone Number KADEEM [address] [place] [address] * (ABNORMAL) hCG, blood, quantitative (10/09/2024 9:43 PM WHARF HELPER) [facility] hCG, quant 45,621.0( H) 0.0 - 5.0 IUnits/L Comment: Interpretive Data Male: < 5 IU/L Non- premenopausal Female: <5 IU/L [employer] hCG Beta Quant assay procedure was used. Results from different manufacturers or methods may not be comparable. Serial testing should be performed using the same method. Interpretive Data was last revised on 2023 Blood 10/09/2024 9:43 PM WHARF HELPER 10/09/2024 10:20 PM WHARF HELPER Jania Singleton [place] LAB BLOOD ORDERABLES Final R esult Performing Organization Address [facility] Co de Phone Number [address] [place] [address] * Lipase (10/09/2024 9:43 PM WHARF HELPER) [facility] Lipase 28 10 - 99 Units/L Blood Venous blood specimen / Unknown 10/09/2024 9:43 PM WHARF HELPER 10/09/2024 9:57 PM WHARF HELPER Hans Vang LAB BLOOD ORDERABLES Final Result Performing Organization Address [facility] Co de Phone Number [id number] [place] [address] * (ABNORMAL) Comprehensive metabolic panel (10/09/2024 9:43 PM WHARF HELPER) [facility] Sodium 131(L) 135 - 145 mmol/L Potassium, pl 3.4 3.3 - 4.9 mmol/L [facility] Chloride 99 97 - 110 mmol/L [facility] CO2 22 22 - 32 mmol/L [facility] Anion gap 10 2 - 15 mmol/L [facility] BUN 9 6 - 25 mg/dL [facility] Creatinine 0.73 0.60 - 1.10 mg/dL [facility] Glucose 107 70 - 199 mg/dL [facility] Comment: Interpretive Data Fasting glucose >/= [...] classification and Diagnosis of Diabetes Diabetes Care 202; 46: S19-S40. Current interpretive data was last revised 2022. Calcium 8.9 8.5 - 10.3 mg/dL [facility] Bilirubin, total 0.5 0.1 - 1.2 mg/dL [facility] Protein, pl 7.3 6.5 - 8.5 g/dL [facility] Albumin 3.8 3.5 - 5.0 g/dL [facility] Alk phos 62 40 - 130 Units/L [facility] ALT 17 7 - 45 Units/L [facility] AST 32 10 - 45 Units/L [facility] Blood 10/09/2024 9:43 PM WHARF HELPER 10/09/2024 9:57 PM WHARF HELPER Hans Vang DO LAB BLOOD ORDERABLES Final Result Performing Organization Address City/State/[facility] Co de Phone Number [facility] [address] [facility] Department [place] [address] from Last 3 Months Insurance [facility] [employer] Address: [facility] [address] [place] [address] Care Teams Cheese Packer Relationship Specialty Start Date End Date Unknown, Notinfile PCP - General 04/15/22 Unknown, Notinfile 04/15/22
[2024-12-16 18:40] VITALS: BP 134/87; PULSE 83; RESP 16; TEMP 36.6; O2SAT 100
--- OUTSIDE RECORDS SUMMARY | 2024-12-16 18:55 | XMS_ITS | Data Portability ---
[facility] Organization [facility] Address [address] [place] [address] Care Team Providers Care Manager Of Business Operations Name Role Phone MICHELLE LIZ Primary Care Provider Unavailabl e Assessment Encounter Date Assessment Date Assessment LastModified by Organization Details LastModified Time 03/24/2022 03/24/2022 Lucia Bowman is a 36 yo with no PMHx that presents with right wrist pain. [email or web address] Not available 03/25/2022 16:30:33 01/02/2023 01/02/2023 Lucia Bowman is a 36 yo with no PMHx that presents with right wrist pain. [email or web address] Not available 01/02/2023 09:56:04 04/08/2024 04/08/2024 37 yo F w/ no pmhx presents to the office for (L) knee pain. Not available 04/08/2024 11:11:06 Plan of Treatment Reminders Order Date Submit Date Provider Last Modified By Organization Details Last Modified Time Details Appointments None recorde d. Lab CBC w/ auto diff 2022 [facility]23 [facility], [address] [place] [address], [address], [place], [address], 3 12:17:39 Referral None recorde d. Procedures None recorde d. Surgeries None recorde d. Imaging XR, knee, 3 view 2023 024 [facility], [facility], [place], [address], 4 10:01:48 Medication Orders ibuprof en 600 mg tablet 2023 024 [facility] #34548, [address] , [place], [place], [id number], 4 11:14:18 flutica sone propion ate 50 mcg/act uation nasal spray,s uspensi on 2022 023 [facility] #58824, [address] [place], [id number], 3 18:03:49 cetiriz ine 10 mg tablet 2022 023 [facility] #83469, [address] [place], [id number], 3 18:03:51 Sinus Wash Neti Pot with packet 2022 023 [email or web address] [facility] #45336, [address] [place], [place], [id number], 3 16:02:21 clotrim azole 1 % topical cream 2022 023 [email or web address] [facility] #00440, [address] [place], [place], [id number], 3 12:17:39 benzona christensen 200 mg capsule 2021 022 [facility] #19063, [address] [place], [place], [id number], 2 16:13:43 Flonase Allergy Relief 50 mcg/act uation nasal spray,s uspensi on 2021 022 [email or web address] [facility] #89930, [address] [place], [place], [id number], 13:43:41 Voltare n Arthrit is Pain 1 % topical gel 2021 022 [facility]19, [address] [place], [id number], 20:33:47 Patient TargetsNo targets recorded. Patient Instructions Encounter Date Encounter Id Patient Instructions Last Modified By Organization Details Last Modified Time 03/24/2022 [id number] I was present an d available in the Family Medicine clinic to discuss this patient's care during the appointment. I agree with the resident's assessment and plan as documented. Tyron Bolaños MD [email or web address] Not available 03/27/2022 15:09:26 06/12/2022 [id number] I was present an d available in the [facility] medicine clinic to discuss the patient's care during the appointment and the case was discussed with me. I agree with the resident's assessment and plan as documented. HL [email or web address] Not available 06/16/2022 13:44:04 01/02/2023 [id number] A healthy lifestyle: care instructions [email or web address] Not available 01/02/2023 12:20:34 On the date of this encounter, I was available to assist the resident in the care of the patient, and have reviewed and agree with the resident s findings and plan of care. Addendum: recommend ultrasound as detailed above. Pending CBC results, could consider chest imaging (previously normal CXR in 2020), mammogram, referral for removal/aspiratio n. Discussed contingencies with resident on day of encounter---JESSICA [email or web address] Not available 01/02/2023 22:10:59 03/23/2023 [id number] I was present an d available to see this patient in [facility] clinic. I agree with the written findings. Marilyn Boland MD [email or web address] Not available 03/26/2023 16:02:40 04/08/2024 [id number] I was present an d available in the Family Medicine clinic to discuss this patient's care during the appointment. I agree with the resident's assessment and plan as documented. SITA [email or web address] Not available 04/14/2024 15:44:49 Reason for Referral None Reported. Results Created Date Observation Date Name Description Value Unit Range Abnormal Flag Note LastModifiedBy Organization Detail LastModifiedTime 06/06/20 24 XR, knee, 3 view [facility] [address] [facility] [place] [address] [facility] [place] [address] [facility] [facility] [place] [address] 3 VIEWS OF THE LEFT KNEE Clinic al Histor y: Pain Compar cherelle: None 3 views of the left knee demons trate the bony elemen ts to be intact . There is no eviden ce of fractu re or disloc ation. The surrou nding soft tissue s appear normal . Postop erativ e change s are noted with 2 fixati on screws in the proxim al tibia from a latera l approa ch sugges ting previo us fractu re stabil izatio n IMPRES MICHELL: No acute findin gs Ordere d By: ALICIA Vo onical ly Signed By: John galvan MD on 2023 7:07 AM Interp reted By: John galvan MD, 2023 7:06 AM [facility], [place], [address], 06/16/2024 10:04:54 Result Notes None recorded. Problems Name Problem SNOMED Code Status Onset Date Resolution Date Notes Provider Name and Address Organization Details Recorded Time Non-bullous impetigo [id number] Active 020 [facility], [place] - [place] 0 09:57:13 Seborrheic dermatitis 05676807 Active Daquan Angulo PA-C Attn: Paras tierney,[address] [facility], [place], [address], [facility] - [facility] 6 16:14:29 Problem Notes None recorded. Procedures Surgical History None recorded. Imaging Results Imaging Date Name Status LastModified by Organiz ation Details LastModified Time 06/06/2024 XR, knee, 3 view completed [facility] [address], [place], [address], 06/16/2024 10:04:54 Procedure Notes None recorded. Medical Equipment None Reported. Allergies No known drug allergies Medications Name Sig Start Date Stop Date Status Note LastModified by Organization Details LastModified Time cyclobenzap rine 10 mg tablet 12/28 completed Not Available Not Available Not Available tretinoin 0.1 % topical cream APPLY TO FACE IN EVENING active Not Available Not Available No t Available amoxicillin 500 mg capsule TAKE 1 CAPSULE BY MOUTH 4 TIMES A DAY UNTIL GONE 09/10 completed Not Available Not Available Not Available terbinafine HCl 1 % topical cream APPLY TO THE AFFECTED AND SURROUNDI NG AREAS OF SKIN TWICE DAILY active Not Available Not Available No t Available doxycycline hyclate 100 mg capsule active Not Available Not Available N ot Available ketoconazol e 2 % shampoo active Not Available Not Available Not Available clindamycin HCl 300 mg capsule 04/01 completed Not Available Not Available Not Available cetirizine 10 mg tablet TAKE 1 TABLET BY MOUTH EVERY DAY 2022 active Not Available Not Available Not Avai lable ibuprofen 800 mg tablet TAKE 1 TABLET BY MOUTH EVERY 8 HOURS NEEDED active Not Available Not Available No t Available fluconazole 150 mg tablet TAKE 1 TABLET BY MOUTH TODAY AND THEN REPEAT IN 72 HOURS active Not Available Not Available No t Available benzonatate 200 mg capsule TAKE 1 CAPSULE BY MOUTH THREE TIMES DAILY FOR 7 DAYS active Not Available Not Available No t Available hydrocodone 5 mg-acetamin ophen 325 mg tablet 04/01 completed Not Available Not Available Not Available meloxicam 15 mg tablet TAKE 1 TABLET EVERY DAY BY ORAL ROUTE NEEDED. 2021 active Not Available Not Available Not Avai lable metronidazo le 0.75 % (37.5 mg/5 gram) vaginal gel INSERT 1 APPLICATO RFUL VAGINALLY AT BEDTIME FOR 5 NIGHTS active Not Available Not Available No t Available ondansetron HCl 4 mg tablet TAKE 1 TABLET BY MOUTH EVERY 4 TO 6 HOURS NEEDED active Not Available Not Available No t Available prednisone 20 mg tablet 12/28 completed Not Available Not Available Not Available penicillin V potassium 500 mg tablet TAKE 1 TABLET BY MOUTH FOUR TIMES DAILY UNTIL ALL TAKEN active Not Available Not Available No t Available metronidazo le 500 mg tablet TAKE 1 TABLET BY MOUTH EVERY 12 HOURS FOR 7 DAYS active Not Available Not Available No t Available acetaminoph en 300 mg-codeine 30 mg tablet TAKE 1 TABLET BY MOUTH EVERY 6 HOURS NEEDED FOR PAIN active Not Available Not Available No t Available ciprofloxac in 250 mg tablet TAKE 1 TABLET BY MOUTH EVERY 12 HOURS FOR 3 DAYS active Not Available Not Available No t Available clindamycin 1 %-benzoyl peroxide 5 % topical gel APPLY TOPICALLY TO FACE DAILY IN THE MORNING active Not Available Not Available No t Available amoxicillin 500 mg tablet TAKE 1 TABLET EVERY 8 HOURS BY ORAL ROUTE FOR 7 DAYS. 12/28 completed Not Available Not Available Not Available ketorolac 10 mg tablet 12/28 completed Not Available Not Available Not Available oxycodone-a cetaminophe n 5 mg-325 mg tablet active Not Available Not Available No t Available amoxicillin 875 mg tablet TAKE 1 TABLET BY MOUTH TWICE DAILY UNTIL ALL TAKEN active Not Available Not Available No t Available famotidine 20 mg tablet TAKE 1 TABLET(S) TWICE A DAY BY ORAL ROUTE. MAY WEAN TO 1 TAB A DAY AND THEN EOD active Not Available Not Available No t Available dicyclomine 20 mg tablet active Not Available Not Available Not Available doxycycline monohydrate 100 mg capsule Take 1 capsule twice a day by oral route for 10 days. 07/29 completed Not Available Not Available Not Available ferrous sulfate 325 mg (65 mg iron) tablet 04/01 completed Not Available Not Available Not Available tobramycin 0.3 % eye drops INSTILL 1 DROP INTO RIGHT EYE THREE TIMES DAILY active Not Available Not Available No t Available triamcinolo ne acetonide 0.1 % topical ointment APPLY THIN COAT TO FOOT TWICE A DAY active Not Available Not Available No t Available lidocaine 5 % topical patch 12/28 completed Not Available Not Available Not Available promethazin e 25 mg tablet TAKE 1 TABLET BY MOUTH EVERY 6 HOURS NEEDED active Not Available Not Available No t Available ibuprofen 600 mg tablet TAKE 1 TABLET BY MOUTH THREE TIMES DAILY active Not Available Not Available No t Available methylpredn isolone 4 mg tablets in a dose pack TAKE BY MOUTH DIRECTED active Not Available Not Available No t Available ketoconazol e 2 % topical cream APPLY TOPICALLY TO THE AFFECTED AREA EVERY DAY active Not Available Not Available No t Available clobetasol 0.05 % scalp solution APPLY TO AFFECTED AREA(S) SCALP AREA TWO TIMES A DAY MORNING AND EVENING active Not Available Not Available No t Available ondansetron 4 mg disintegrat ing tablet active Not Available Not Available N ot Available cefdinir 300 mg capsule active Not Available Not Available Not Available fluticasone propionate 50 mcg/actuati on nasal spray,suspe nsion SPRAY 1 SPRAY INTO EACH NOSTRIL TWICE A DAY active Not Available Not Available No t Available clotrimazol e 1 % topical cream APPLY TO LEG, FOOT AND ARM AND SURROUNDI NG AREAS OF SKIN 2 TIMES PER DAY IN THE MORNING AND EVENING active Not Available Not Available No t Available loratadine 10 mg tablet TAKE 1 TABLET BY MOUTH EVERY DAY active Not Available Not Available No t Available amoxicillin 875 mg-potassiu m clavulanate 125 mg tablet TAKE 1 TABLET BY MOUTH TWICE DAILY UNTIL ALL TAKEN active Not Available Not Available No t Available clindamycin 1 % lotion active Not Available Not Available N ot Available nitrofurant oin monohydrate /macrocryst als 100 mg capsule TAKE 1 CAPSULE BY MOUTH TWICE DAILY FOR 5 DAYS active Not Available Not Available No t Available chlorhexidi ne gluconate 0.12 % mouthwash active Not Available Not Available No t Available adapalene 0.3 % topical gel APPLY A PEA SIZED AMOUNT TO THE FACE ONCE DAILY AT NIGHT. NOT FOR EYELIDS. MOISTURIZ E AFTER active Not Available Not Available No t Available vits 96-ferrous fumarate 27 mg iron-folic acid 800 mcg tablet 04/01 completed Not Available Not Available Not Available Hitchcock-Linyah 0.25 mg-0.035 mg tablet Take 1 tablet every day by oral route. 04/01 completed Not Available Not Available Not Available My Way 1.5 mg tablet 04/01 completed Not Available Not Available Not Available Sinus Wash Neti Pot with packet Take 1 packet every day by nasal route as needed for 30 days. 2022 active Not Available Not Available Not Avai lable Aczone 7.5 % topical gel with pump APPLY TO FACE EVERY MORNING active Not Available Not Available No t Available Voltaren Arthritis Pain 1 % topical gel APPLY 2 GRAMS TO THE AFFECTED AREA(S) BY TOPICAL ROUTE 4 TIMES PER DAY 2021 active Not Available Not Available Not Avai lable Miebo (PF) 100 % eye drops INSTILL ONE DROP INTO EACH EYE FOUR TIMES DAILY active Not Available Not Available No t Available Vitals Date Recorded Body height Body mass index (BMI) Body weight Body temperature Heart rate Oxygen saturation Oxygen saturation in Arterial blood by Pulse oximetry Systolic blood pressure Diastolic blood pressure Provider Name and Address Organization Details Last Updated DateTime 2 160.02 cm 25.9 kg/m2 77929.1 9 g 98.4 [degF] 80 /min 97 % 97 % 110 mm[Hg] 60 mm[Hg] Kassandra Hamm [facility] 2 17:12:59 Date Recorded Body height Body mass index (BMI) Body weight Heart rate Body temperature Oxygen saturation Oxygen saturation in Arterial blood by Pulse oximetry Systolic blood pressure Diastolic blood pressure Provider Name and Address Organization Details Last Updated DateTime 3 160.02 cm 26.2 kg/m2 50809.0 2 g 91 /min 98.3 [degF] 97 % 97 % 118 mm[Hg] 84 mm[Hg] Leisa Olivares [facility] SI 3 10:28:30 Date Recorded Body height Body mass index (BMI) Body weight Body temperature Oxygen saturation Oxygen saturation in Arterial blood by Pulse oximetry Heart rate Systolic blood pressure Diastolic blood pressure Provider Name and Address Organization Details Last Updated DateTime 3 160.02 cm 24.8 kg/m2 43562.9 8 g 97.9 [degF] 99 % 99 % 78 /min 116 mm[Hg] 78 mm[Hg] Albania Llamas [facility] 3 17:31:54 Date Recorded Body height Body mass index (BMI) Body weight Body temperature Oxygen saturation Oxygen saturation in Arterial blood by Pulse oximetry Heart rate Systolic blood pressure Diastolic blood pressure Provider Name and Address Organization Details Last Updated DateTime 4 160.02 cm 26.5 kg/m2 30722.7 1 g 97.6 [degF] 100 % 100 % 85 /min 112 mm[Hg] 78 mm[Hg] Evan Serrato MA [facility] SI 4 10:49:01 Social History Question Answer Notes LastModified by Organizat ion Details LastModified Time Tobacco Smoking Status Never Smoker Asha Mims IFRAH cano, [place] - [facility] 09/01/2015 14:40:31 What Is Your Level Of Alcohol Consumption? Occasional Information not available 11/02/2020 What Was The Date Of Your Most Recent Tobacco Screening? 04/08/2024 [email or web address] Information not available 04/08/2024 Do You Use Any Illicit Or Recreational Drugs? No Information not available 11/02/2020 Do You Or Have You Ever Used Any Other Forms Of Tobacco Or Nicotine? No Information not available 11/02/2020 Sex: Unknown Functional Status None recorded. Mental Status None recorded. Family History Nothing Reported. Medical History No medical history recorded. Gynecological HistoryNo gynecological history recorded. Obstetrics History GPAL:G 0 P 0 0 0 0 Immunizations Vaccine Type Date Status Note Provider Nam e and Address Organization Details Recorded Time DTP 8 completed JOSUE [place], [place] - [facility] 06/08/2021 10:28:20 DTP 8 brandy Potter RN [place], [place] [facility] 06/08/2021 10:28:25 DTP 8 brandy Potetr [place], [place] [facility] 06/08/2021 10:28:32 DTP 2 completed [place] [facility] 06/08/2021 10:28:39 Hep B, adolescent or pediatric 8 [place], [place] [facility] 06/08/2021 10:28:57 Hep B, adolescent or pediatric 8 brandy Potter [place] [facility] 06/08/2021 10:29:03 Hep B, adolescent or pediatric 9 completed [place] [facility] 06/08/2021 10:29:08 MMR 2 [place] [facility] 06/08/2021 10:29:37 MMR 3 [place] [facility] 06/08/2021 10:29:43 MMR 3 [place] [facility] 06/08/2021 10:29:47 IPV 8 completed Anabella Potter RN null, [place] - [facility] 06/08/2021 10:29:59 IPV 8 completed Anabella Potter [place] 06/08/2021 10:30:06 IPV 8 completed Anabella [place] 06/08/2021 10:30:10 IPV 2 completed Anabella [place] 06/08/2021 10:30:15 IPV 2 completed Anabella [place] [facility] 06/08/2021 10:30:19 DTP 2 completed Anabella Potter RN [place], [place] [facility] 06/08/2021 10:30:54 Influenza, split virus, quadrivalent, preservative 8 completed Not Available [facility] 09/13/[facility] 02:44:14 Past Encounters Encounter ID Performer Location Encounter Start Date Encounter Closed Date Diagnosis/Indication Diagnosis SNOMED-CT Code Diagnosis ICD10 Code Diagnosis Note [id number] Daquan Angulo PA-C [facility] [address] [facility] [address] [place] [address] 09/01/2015 14:19:31 09/01/2015 15:48:11 History and physical examination, pre-employment 657536453 Z02.1 [id number] Daquan Angulo PA-C [facility] [address] [place] [address] 01/26/2016 13:27:57 01/26/2016 16:18:44 Seborrheic dermatitis 89092159 L21.9 [id number] Elmer Luna MD [place] [address] [address] [address] 07/24/2018 10:05:19 07/24/2018 12:56:50 Seborrheic dermatitis 09860452 L21.9 - Longstandi ng history and controlled on clobetasol solution previously , requesting refill - Discussed alternativ e steroid regimens that are of lower potency and the risk and side effects associated with topical steroids - Encouraged applying topical emollients as well (vaseline, etc) Uses oral contraception 2345122 Z79.3 -2 months post-partu m currently not on any form of contracept ion,menstr ual cycle has resumed, no sexual intercours e yet, and is not breastfeed ing - Start OCP, which will also likely help with the mild facial acne Adult heal th examination 434921814 Z00.00 - Flu immunizati on today Pain in left thumb 49777 13482 308817 M79.645 Acute, likely 2/2 OA vs trigger finger, however abnormal presentati on and pain distributi on, less concerning for fracture or ligamentou s injury at this time vs gout - Xray hand ordered - Will base further management pending xray results Active or passive immunization 860037385 Z23 [id number] Ca Burch MD [facility] [address] [place] [address] 12/05/2018 16:46:49 12/06/2018 10:06:24 Tinea pedis 1038581 B35.3 Acute, stable- Appears to be the beginning of the infection- Endorses similar experience in the past which resolved with antifungal s- Start clotrimazo le topical cream BID- If no improvemen t or if symptoms worsen RTC [id number] Brett Marks MD [facility] [address] [address] 03/16/2020 11:24:27 03/17/2020 08:12:25 Seasonal allergic rhinitis 669597311 J30.2 Acute, unresolved Symptoms consistent with allergic rhinitisSt art flonase and cetirizine Return to clinic in two weeks for re-evaluat ionDiscuss ed symptoms could be viral URI as well, discussed she should consider covid testing as well if no improvemen t after initiating txER/retur n precaution s given [id number] Marilyn Boland MD [facility] [address] [address] 04/01/2020 08:29:53 04/02/2020 09:41:44 Seasonal allergic rhinitis 312696566 J30.2 Chronic, stable, improvedCo ntinue current regimen: flonase and cetirizine dailyRetur n precaution s givenRTC in 2 months for re-evaluat ion, sooner if needed [id number] Naveen Lundberg MD [address] [address] 07/09/2020 16:57:36 07/12/2020 07:58:49 Non-bullous impetigo 940712736 L01.01 Chronic, worseningD isseminate d macules, papules, and plaque of various stages with crusting concerning for impetigo. differenti als include tinea corporis, granuloma annulare, pityriasis rosea.- Obtained wound culture- Doxycyclin e 100mg BID for 10 days- OTC topical hydrocorti sone (no more than 3 weeks), Benadryl, or Zyrtec for itching relief- Advised to return to clinic if lesions do not improve with therapy- Consider oral diflucan not improving- Consider biopsy if no improvemen t with all oral treatment. [id number] Pola Miller MD [address] [address] 07/29/2020 08:28:44 07/29/2020 11:17:39 Persistent cough 280675139 R05 chronic, mild, no associated red flag signsW/ associated Hx of anosmia (resolved) , possible COVID sequalae, vs. GERD, low LH Lung CaWill send for CXR to r/o itnraparen chymal pathologyw ill trial pepcid BID for up to 6 weeks to r/o GERD related coughcouns eled on avoiding cold air, smokersif no improvemen t, may consider short course (3-5 days) of steroids)f /u in 1-2 weeks [id number] Alfredo griffin MD [address] [address] 08/13/2020 13:58:52 08/16/2020 16:26:49 Persistent cough 763315431 R05 chronic, mild, no associated red flag signsW/ associated Hx of anosmia (resolved) , possible COVID sequalae, vs. GERD, low LH Lung CaWill send for CXR to r/o intraparen chymal pathologyc ontinue pepcid trial for 4 more weekscouns eled on avoiding cold air, smokersif no improvemen t, may consider short course (3-5 days) of steroids after pepcid, possible PFTsf/u in 4 weeks [id number] Homero Wheat MD [place] [address] [address] [address] 09/10/2020 12:23:43 09/14/2020 09:51:05 Overweight 578477960 E66.3 chronic, uncontroll eddiscussi on had over phone regarding healthy lifestylef /u as needed Persistent cough 9729680 02 R05 chronic, resolved, no associated red flag signs.W/ associated Hx of anosmia (resolved) , possible COVID sequelae, vs. GERDCXR negativebe gin pepcid wean, may take one tab daily, for two weeks, then EOD for two weeksif symptoms resume, then titrate up treatmentc ounseled on avoiding cold air, smokersif no improvemen t, may consider short course (3-5 days) of steroids after pepcid, possible PFTsf/u as needed [id number] Homero Wheat MD [place] [address] [address] [address] 10/13/2020 10:18:37 10/14/2020 11:35:32 Dysuria 60864108 R30.9 Acute, unresolved . No red flag symptoms- Treat for suspected uncomplica ricky UTI- Macrobid 100 mg BID x 5 days- Strict return and ER precaution s given Vaginal discharge 609325 006 N89.8 Will treat for suspected yeast infection based on symptoms- Fluconazol e 150 mg x 1- Discussed coming in to the office for nuswab if symptoms do not improve- Discussed importance of condoms for STI prevention and control [id number] Tyron Bolaños MD [place] [address] [address] [address] 11/02/2020 11:59:18 11/03/2020 10:55:54 Dysuria 65717484 R30.9 Acute, resolving. Currently with intermitte nt dysuria which has improved- UA with small LE, no nitrites, blood noted ( patient currently on menstrual cycle), repeat UA to ensure resolution of blood in 2 weeks- Will hold on additional antibiotic s at this time due to almost complete resolution of symptoms. Will check urine culture Adult heal th examination 198789055 Z00.00 Requesting screening for sickle cell disease and CBC. Endorses one son has sickle cell trait and the other does not Contact dermatitis 23866 004 L25.9 Acute, resolvingT wo papules on dorsal aspect of foot.- Requesting topical steroid, triamcinol one sent, adverse drug effects discussed [id number] [facility] [address] [facility] [address] [place] [address] 11/26/2020 14:31:27 11/29/2020 15:23:12 Infection of tooth 548354248 K04.7 acute, uncontroll ed has f/u w/ dentist scheduled on 12/16 will send amoxicilli n 500mg q8h for 7 days counseled on signs of worsening infxn f/u as needed [id number] MD Bassam Willis [address] [facility] [address] [place] [address] 08/05/2021 15:47:48 08/08/2021 12:29:15 Pain of left knee joint [id number] 05264 M25.562 Chronic, unresolved DDx: early OA given hardware in knee vs patellofem oral pain syndrome vs malplaced hardwareLo w concern for ligamentou s injury given no acute trauma. Discussed with patient that she may ultimately need to see incident response specialist given history of hardware in knee. Will obtain xray first-Cont inue rest, ice, compressio n-Pt declines PT-Discuss ed anti-infla mmatory effects of NSAIDs. Pt initially hesitant as she feels Ibuprofen has not helped with pain but agreeable after discussion . Will try Meloxicam Pain in right thumb [id number] M79.644 Chronic, unresolved Reviewed previous notes. Pt had similar presentati on in 2018. Pain only located over IP joint. Without history of trauma there is unlikely to be any injury. Considered de Quervain's tenosynovi tis although Finkelstei ns test negative and location of pain does not fit typical presentati on of de Quervains. Previously had xay ordered but never obtained. Low concern for autoimmune etiology given no pain in any other joints except knee as mentioned above-xray ordered-Tr ial thumb spica brace OTC [id number] Alfredo griffin MD [place] [address] [address] [address] 01/06/2022 17:18:47 01/09/2022 08:57:00 Tinea pedis [id number] B35.3 Acute, unresolved . Previous tried a couple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
--- OUTSIDE RECORDS SUMMARY | 2024-12-16 18:55 | XMS_ITS | Continuity of Care Document ---
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 Name Role Phone Unavailable Unavailable Unavailable Allergies, Adverse Reactions, Alerts Substance Reaction Status Criticality No Known Allergies Active No Inform ation Procedures Procedure Date X-RAY EXAM CHEST 2 VIEWS OFFICE/OUTPATIENT VISIT, EST Advance Directives Directive Yes / No Effective Date File Name No Information Encounters Encounter Description Practice Location Reason(s) For Visit Diagnoses Date Provider Providers Copied on Encounter [facility] , [address], [place], [place], [address], tel:[phone] [facility] No Information No Information OFFICE/OUTPAT IENT VISIT, EST [facility] , [address], [place], [place], [address], tel:[phone] [facility] [place] PPD result (chief complaint) Body mass index (BMI) 27.0-27.9, adultPPD positive No Information Family History Family Member Type Diagnosis Age At Onset No Information Payers Payer name Insurance type Covered republican ID Authoriza tion(s) No Information Social History Type Description Quantity Date Captured Comments Sex Female Smoking Status No Information Chief Complaint And Reason For Visit No Information Reason For Referral Reason For Referral No Information Plan Of Treatment Date Type Action Status Future Order: Lab Order QuantiFE ELKE(R)-TB Gold Plus ([id number]), Scheduled for: Ordered Nutrition Recommendation Nutrition therap y completed History Of Present Illness Encounter Date Complaint History Of Prese nt Illness PPD result pt here for posi tive PPD1st PPD placed - did not return for [id number] PPD placed and 0 mm3rd PPD placed [...]
--- OUTSIDE RECORDS SUMMARY | 2024-12-16 18:56 | XMS_ITS | Data Portability ---
Author Organization [facility] [employer] , [facility]_Osvaldo Address [address] [place] [address] Care Team Providers Care General Practice Name Role Phone [facility] Technical Inspector Assessment Encounter Date Assessment Date Assessment LastModified by Organization Details LastModified Time 07/07/2022 07/07/2022 Pt is a 36 yo F here today for STI testing. Discussed the various types of STIs, related symptoms and the potential consequences (including effects on fertility) of STI. Reviewed ways to limit exposure and prevention techniques. Reports no s/s of infection just wants POC [facility] STI blood work [email or web address] Not available 07/07/2022 17:18:15 01/05/2023 01/05/2023 Pt is a 37 yo F here today for Infection/STI testing. Discussed the various types of Infections and STIs, related symptoms and the potential consequences (including effects on fertility) of STI. Reviewed ways to limit exposure and prevention techniques. [facility] [email or web address] Not available 01/05/2023 16:41:03 Plan of Treatment Reminders Order Date Submit Date Provider Last Modified By Organization Details Last Modified Time Details Appointments None recorded. Lab unlisted lab - STD screening ([facility]) 2023 024 ACSIAN Fede, [address] [place], [address], 4 13:32:34 bacterial vaginosis + vaginitis panel, vaginal 2023 024 ACSIAN Fede, [address] [place], [address], 4 14:40:05 bacterial vaginosis + vaginitis panel, vaginal 2022 023 PERI Lesterland Fede, [address] [place], [address], 3 09:42:58 unlisted lab - STD screening ([facility]) 2022 023 PERI Netlist Fede, [address] [place], [address], 3 11:27:10 bacterial vaginosis + vaginitis panel, vaginal 2022 023 PERI Netlist Fede, [address] [place], [address], 3 15:29:00 unlisted lab - STD screening ([facility]) 2022 023 PERI Netlist Fede, [address] [place], [address], 3 11:26:50 bacterial vaginosis + vaginitis panel, vaginal 2021 022 PERI Netlist Fede, [address] [place], [address], 2 15:57:01 Referral None recorded. Procedures None recorded. Surgeries None recorded. Imaging None recorded. Medication Orders None recorded. Patient TargetsNo targets recorded. Patient Instructions Encounter Date Encounter Id Patient Instructions Last Modified By Organization Details Last Modified Time 07/07/2022 [id number] safer sex: care instructions [email or web address] Not available 07/07/2022 17:18:33 03/09/2023 [id number] Patient Health Questionnaire-9* [email or web address] Not available 03/12/2023 11:02:53 learning about dietary guidelines Not available 03/09/2023 16:06:50 eating healthy foods: care instructions Not available 03/09/2023 16:06:50 abuse/domestic violence education Not available 03/09/2023 16:06:50 weight managemen t education Not available 03/09/2023 16:06:50 03/07/2024 [id number] body mass index: care instructions Not available 03/07/2024 16:18:40 A healthy lifestyle: care instructions Not available 03/07/2024 16:18:40 Following the [employer] Food Guide: Care Instructions Not available 03/07/2024 16:18:40 exercise program : getting started Not available 03/07/2024 16:18:40 Reason for Referral None Reported. Results Created Date Observation Date Name Description Value Unit Range Abnormal Flag Note LastModifiedBy Organization Detail LastModifiedTime 07/07/20 22 07/10/2022 VAGIN ITIS PLUS STD PANEL bacterial vaginosis BV POS negati ve abnormal Not Available [employer] [address] [place] [address], [id number], 07/10/2022 15:57:01 07/07/20 22 07/10/2022 VAGIN ITIS PLUS STD PANEL mo species C. spp neg negati ve normal Not Available [facility] [address] [place] [address], [address], 07/10/2022 15:57:01 07/07/20 22 07/10/2022 VAGIN ITIS PLUS STD PANEL mo glabrata C. gla neg negati ve normal Not Available [employer] [address] [place] [address], [id number], 07/10/2022 15:57:01 07/07/20 22 07/10/2022 VAGIN ITIS PLUS STD PANEL trichomonas vaginalis CV/TV TRICH neg negati ve normal Not Available [employer] [address] [place] [address], [id number], 07/10/2022 15:57:01 07/07/20 22 07/10/2022 VAGIN ITIS PLUS STD PANEL chlamydia trachomatis CT neg negati ve normal This repor t is inten ded for us in clini gil monit oring and manag ement of consuelo nts. It is not inten ded for use in medic al- gal appli catio n. Not Available [facility] [address] [place], [address], 07/10/2022 15:57:01 07/07/20 22 07/10/2022 VAGIN ITIS PLUS STD PANEL neisseria gonorrhoeae GC neg negati ve normal This repor t is inten ded for us in clini gil monit oring and manag ement of consuelo nts. It is not inten ded for use in medic al-le gal appli catio n. Not Available [facility] [address] [place] [address], [id number], 07/10/2022 15:57:01 01/06/20 23 01/06/2023 STD SCREE ROSARIO ([facility] ) hep BS Ag Non-Re active non-re active normal Not Available [address], [address], 01/06/2023 11:26:50 01/06/20 23 01/06/2023 STD SCREE ROSARIO ([facility] ) hep C Ab Non-Re active non-re active normal Not Available [address], [address], 01/06/2023 11:26:50 01/06/20 23 01/06/2023 STD SCREE ROSARIO ([facility] ) HIV 1/2 Ag/Ab Non-Re active non-re active normal Not Available [address], [address], 01/06/2023 11:26:50 01/06/20 23 01/06/2023 STD SCREE ROSARIO ([facility] ) syphilis Ab Non-Re active non-re active normal Not Available [address], [address], 01/06/2023 11:26:50 01/06/20 23 01/08/2023 VAGIN ITIS PLUS STD PANEL bacterial vaginosis BV POS negati ve abnormal Not Available [address], [address], 01/08/2023 15:29:00 01/06/20 23 01/08/2023 VAGIN ITIS PLUS STD PANEL mo species C. spp POS negati ve abnormal Not Available [address], [address], 01/08/2023 15:29:00 01/06/20 23 01/08/2023 VAGIN ITIS PLUS STD PANEL mo glabrata C. gla neg negati ve normal Not Available [address], [address], 01/08/2023 15:29:00 01/06/20 23 01/08/2023 VAGIN ITIS PLUS STD PANEL trichomonas vaginalis CV/TV TRICH neg negati ve normal Not Available [address], [address], 01/08/2023 15:29:00 01/06/20 23 01/08/2023 VAGIN ITIS PLUS STD PANEL chlamydia trachomatis CT neg negati ve normal This repor t is inten ded for us in clini gil monit oring and manag ement of patie nts. It is not inten ded for use in medic al-le gal appli catio n. Not Available [address], [address], 01/08/2023 15:29:00 01/06/20 23 01/08/2023 VAGIN ITIS PLUS STD PANEL neisseria gonorrhoeae GC neg negati ve normal This repor t is inten ded for us in clini gil monit oring and manag ement of patie nts. It is not inten ded for use in medic al-le gal appli catio n. Not Available [address], [address], 01/08/2023 15:29:00 03/09/20 23 03/10/2023 STD SCREE ROSARIO ([facility] ) hep BS Ag Non-Re active non-re active normal Not Available [address], [address], 03/10/2023 11:27:10 03/09/20 23 03/10/2023 STD SCREE ROSARIO ([facility] ) hep C Ab Non-Re active non-re active normal Not Available [address], [address], 03/10/2023 11:27:10 03/09/20 23 03/10/2023 STD SCRECasandra PONCE ([facility] ) HIV 1/2 Ag/Ab Non-Re active non-re active normal Not Available [address], [address], 03/10/2023 11:27:10 03/09/20 23 03/10/2023 STD GERMÁN PONCE ([facility] ) syphilis Ab Non-Re active non-re active normal Not Available [address], [address], 03/10/2023 11:27:10 03/09/20 23 03/13/2023 VAGIN ITIS PLUS STD PANEL bacterial vaginosis BV POS negati ve abnormal Not Available [address], [address], 03/14/2023 09:42:58 03/09/20 23 03/13/2023 VAGIN ITIS PLUS STD PANEL mo species C. spp POS negati ve abnormal Not Available [address], [address], 03/14/2023 09:42:58 03/09/20 23 03/13/2023 VAGIN ITIS PLUS STD PANEL mo glabrata C. gla neg negati ve normal Not Available [address], [address], 03/14/2023 09:42:58 03/09/20 23 03/13/2023 VAGIN ITIS PLUS STD PANEL trichomonas vaginalis CV/TV TRICH neg negati ve normal Not Available [address], [address], 03/14/2023 09:42:58 03/09/2003/13/2023 VAGIN ITIS PLUS STD PANEL chlamydia trachomatis CT neg negati ve normal This repor t is inten ded for us in clini gil monit oring and manag ement of [facility]. It is not inten ded for use in medic al-le gal appli catio n. Not Available [address], [address], 03/14/2023 09:42:58 03/09/2003/13/2023 VAGIN ITIS PLUS STD PANEL neisseria gonorrhoeae GC neg negati ve normal This repor t is inten ded for us in clini gil monit oring and manag ement of [facility]. It is not inten ded for use in medic al- gal appli catio n. Not Available [address], [address], 03/14/2023 09:42:58 04/09/2004/11/2023 CULTU RE, URINE , ROUTI NE culture, urine, routine SEE NOTE abnormal CULTU RE, URINE , ROUTI NE Micro Numbe r: [id number] Test Statu s: Final Speci men Sourc e: Urine Speci men Quali ty: Adequ ate Resul t: Great er than 100,0 00 CFU/m L of Prote us mirab ilis P.isabel abili s ----- ----- ----- - INT NATASHA AMP/S ULBAC FERNANDEZ S 4 CEFAZ ELISABET NR <=4 2 CEFEP KRISHNA S <=0.1 2 CEFTA ZIDIM E S <=1 CEFTR IAXON E S <=0.2 5 CIPRO FLOXA ROLAND S <=0.0 6 GENTA MICIN S <=1 LEVOF LOXAC IN S <=0.1 2 MEROP ENEM S 1 NITRO FURAN TOIN R 128 PIP/T AZOBA CTAM S <=4 TRIME THOPR IM/ALEMAN LFA R >=320 S=Rona cepti ble I=Int ermed iate R=Res istan t * = Not Teste d NR = Not Repor ricky NN = See Thera py Comme nts THERA PY COMME NTS Note 1: For infec tions other than uncom plica ricky UTI cause d by E. coli, K. pneum oniae or P. mirab ilis: Cefaz elisabet is resis tant if NATASHA > or = 8 mcg/m L. (Dist ingui shing susce ptibl e versu s inter media te for isola chico with NATASHA < or = 4 mcg/m L requi res addit ional testi ng.) Note 2: For uncom plica ricky UTI cause d by E. coli, K. pneum oniae or P. mirab ilis: Cefaz elisabet is susce ptibl e if NATASHA <32 mcg/m L and predi cts susce ptibl e to the oral agent s cefac gallo, cefdi marlene, cefpo doxim e, cefpr ozil, cefur oxime , cepha lexin and lorac arbef . Not Available [facility] [address] [place], [address], 04/11/2023 18:42:33 01/11/20 24 01/14/2024 STD SCREE ROSARIO ([facility] ) hep BS Ag Non-Re active non-re active normal Not Available [address], [address], 01/14/2024 13:32:34 01/11/20 24 01/14/2024 STD SCREE ROSARIO ([facility] ) hep C Ab Non-Re active non-re active normal Not Available [address], [address], 01/14/2024 13:32:34 01/11/20 24 01/14/2024 STD SCREE ROSARIO ([facility] ) HIV 1/2 Ag/Ab Non-Re active non-re active normal Not Available [address], [address], 01/14/2024 13:32:34 01/11/20 24 01/14/2024 STD SCREE ROSARIO ([facility] ) syphilis Ab Non-Re active non-re active normal Not Available [address], [address], 01/14/2024 13:32:34 01/11/20 24 01/14/2024 VAGIN ITIS PLUS STD PANEL bacterial vaginosis BV POS negati ve abnormal Not Available [address], [address], 01/14/2024 14:40:05 01/11/20 24 01/14/2024 VAGIN ITIS PLUS STD PANEL mo species C. spp POS negati ve abnormal Not Available [address], [address], 01/14/2024 14:40:05 01/11/20 24 01/14/2024 VAGIN ITIS PLUS STD PANEL mo glabrata C. gla neg negati ve normal Not Available [address], [address], 01/14/2024 14:40:05 01/11/20 24 01/14/2024 VAGIN ITIS PLUS STD PANEL trichomonas vaginalis CV/TV TRICH POS negati ve abnormal Not Available [address], [address], 01/14/2024 14:40:05 01/11/20 24 01/14/2024 VAGIN ITIS PLUS STD PANEL chlamydia trachomatis CT neg negati ve normal This repor t is inten ded for us in clini gil monit oring and manag ement of [facility]. It is not inten ded for use in medic al-le gal appli catio n. Not Available [facility] [address] [place] [address], [address], 01/14/2024 14:40:05 01/11/20 24 01/14/2024 VAGIN ITIS PLUS STD PANEL neisseria gonorrhoeae GC neg negati ve normal This repor t is inten ded for us in clini gil monit oring and manag ement of patie nts. It is not inten ded for use in medic al-le gal appli catio n. Not Available [facility] [address] [facility], [place], [address], 01/14/2024 14:40:05 Result Notes None recorded. Problems Name Problem SNOMED Code Status Onset Date Resolution Date Notes Provider Name and Address Organization Details Recorded Time Clinical finding Completed 201905/07/2023 Encounte r for initial prescrip tion of injectab le contrace ptive; Progress : Stable Added By: Annie Frankel Add to Current Problems : YES ProblemS tatus: Current Erika Britsch null, [place] [facility] 3 01:22:02 Clinical finding Completed 201905/07/2023 Encounte r for surveill ance of injectab le contrace ptive; Progress : Stable Added By: Jenni Cain Add to Current Problems : YES ProblemS tatus: Current Erika Britsch null, [place] [facility] 3 01:22:04 Gestatio n period, 38 weeks [id number] Completed 201709/02/2018 38 weeks gestatio n of pregnanc y; Progress : Stable Added By: Camelia Galloway Add to Current Problems : NO ProblemS tatus: Resolve Not Available [facility] 2 20:51:43 Finding of pattern of menstrua l cycle [id number] Completed 201805/07/2023 Excessiv e and frequent menstrua tion with irregula r cycle; Progress : Stable Added By: Kaitlin Paris Add to Current Problems : YES ProblemS tatus: Current Erika Britsch null, [place] [facility] 3 01:21:52 Uterine size for dates discrepa ncy Completed 201707/06/2018 Uterine size-gerda e discrepa ncy, third trimeste r; Progress : Stable Added By: Kaitlin Paris Add to Current Problems : NO ProblemS tatus: Resolve Not Available [facility] 2 20:51:44 Poor growth affectin g manageme nt [id number] Completed 201707/06/2018 Small for dates; Location : None Progress : Stable Added By: Kaitlin Paris Add to Current Problems : YES ProblemS tatus: Resolve Not Available [facility] 2 20:51:43 Atypical squamous cells of undeterm ined signific ance on cervical Papanico laou smear [id number] Completed 201805/07/2023 Atypical squamous cells of undeterm ined signific ance on cytologi c smear of cervix (ASC-US) ; Progress : Stable Added By: Kaitlin Paris Add to Current Problems : YES ProblemS tatus: Current Erika Britsch null, [place] [facility] 3 01:22:12 Human papillom avirus deoxyrib onucleic acid detected , high risk on cervical specimen [id number] Completed 201805/07/2023 Cervical high risk human papillom avirus (HPV) DNA test positive ; Progress : Stable Added By: Kaitlin Paris Add to Current Problems : YES ProblemS tatus: Current Erika Britsch null, [place] [facility] 3 01:22:14 Acute vaginiti s [id number] Completed 201805/07/2023 Acute vaginiti s; Progress : Stable Added By: Ketan Rhodes Add to Current Problems : YES ProblemS tatus: Current Erika Britsch null, [facility] 3 01:21:55 Syphilis test finding [id number] Completed 201905/07/2023 Encouncole r for screenin g for infectio ns with a predomin antly sexual mode of transmis duarte; Progress : Stable Added By: Jenni Cain Add to Current Problems : YES ProblemS tatus: Current Erika Britsch null, [place] [facility] 3 01:22:07 Sampling of vagina for Papanico laou smear Completed 201805/07/2023 Encounte r for gynecolo gical examinat ion (general ) (routine ) without abnormal findings ; Progress : Stable Added By: Evangelina Mims Add to Current Problems : YES ProblemS tatus: Current Erika Britsch null, [place] [facility] 3 01:22:09 Normal pregnanc y in [place] [id number] 4106 Completed 201709/02/2018 Encounte r for supervis ion of other normal pregnanc y, third trimeste r; Progress : Stable Added By: Camelia Galloway Add to Current Problems : NO ProblemS tatus: Resolve Not Available [facility] 2 20:51:43 Amenorrh ea [id number] Completed 201805/07/2023 Amenorrh ea, unspecif ied; Progress : Stable Added By: Rosy Randle Add to Current Problems : YES ProblemS tatus: Current Erikayayo Sifuentessch null, [facility] 3 01:21:46 Screenin g for malignan t neoplasm of cervix Completed 201805/07/2023 Encounte r for screenin g for malignan t neoplasm of cervix; Progress : Stable Added By: Jenni Cain Add to Current Problems : YES ProblemS tatus: Current Erika Sifuentessch null, [facility] 3 01:21:49 Normal pregnanc y [id number] Completed 201701/11/2024 Medical visit for normal pregnanc y; Location : None Progress : Stable Added By: Camelia Galloway Add to Current Problems : YES ProblemS tatus: Current Richard Thompson null, [facility] 4 16:17:00 Antenata l screenin g Completed 201706/29/2018 Encounte r for antenata l screenin g for Streptoc occus B; Progress : Stable Added By: Ofelia Pineda Add to Current Problems : NO ProblemS tatus: Resolve Encounte r for other specifie d antenata l screenin g; Progress : Stable Added By: Camelia Galloway Add to Current Problems : NO ProblemS tatus: Resolve; Start Date : 10/30/19 18 Anten atal screenin g; unspecif ied; Location : None Progress : Stable Added By: Camelia Galloway Add to Current Problems : YES ProblemS tatus: Current; Start Date : 10/30/19 18 Not Available [facility] 2 20:51:44 Pregnanc y detectio n examinat ion Completed 201805/07/2023 Encounte r for pregnanc y test, result positive ; Progress : Stable Added By: Ashley Smith Add to Current Problems : YES ProblemS tatus: Current Erika Romeo null, [facility] [employer] [facility] 3 01:22:17 Notes:GBS Screening (V28.6) ; OnsetDate: 04/30/2018; ResolvedDate: 06/29/2018; Progress: Stable Added By: Ofelia Rios Add to Current Problems: NO ProblemStatus: Resolve screening; unspecified (V28.9) ; OnsetDate: 10/29/2017; ResolvedDate: 09/02/2018; Progress: Stable Added By: Camelia Galloway Add to Current Problems: NO ProblemStatus: Resolve Medical visit for normal (V22.1) ; OnsetDate: 10/29/2017; ResolvedDate: 09/02/2018; Progress: Stable Added By: Camelia Galloway Add to Current Problems: NO ProblemStatus: Resolve Problem Notes None recorded. Procedures Surgical History Date Name Laterality Status Provider Name and Address Organization Details Recorded Time 2 Date of Last Pap Smear completed Becky Nathanlister [facility] [employer] 01/05/2023 16:34:45 procedure on eye completed Cecily Elcar [facility] 09/30/2021 00:59:25 Imaging Results None recorded. Procedure Notes None recorded. Medical Equipment None Reported. Allergies No known drug allergies Medications Name Sig Start Date Stop Date Status Note LastModified by Organization Details LastModified Time cyclobenz aprine 10 mg tablet TAKE 1 TABLET BY MOUTH 3 TIMES A DAY NEEDED FOR MUSCLE SPASMS 11/11 completed Not Available Not Available Not Available tretinoin 0.1 % topical cream APPLY TO FACE IN EVENING 01/05 completed Not Available Not Available Not Available terbinafi ne HCl 1 % topical cream APPLY TO THE AFFECTED AND SURROUND ING AREAS OF SKIN TWICE DAILY 07/07 completed Not Available Not Available Not Available doxycycli ne hyclate 100 mg capsule 11/11 completed Not Available Not Available Not Available ketoconaz ole 2 % shampoo MASSAGE INTO SCALP DAILY WHEN FLARE OCCURS THEN ONLY NEEDED active Not Available Not Available No t Available ibuprofen 800 mg tablet TAKE 1 TABLET BY MOUTH EVERY 8 HOURS NEEDED 11/11 completed Not Available Not Available Not Available fluconazo le 150 mg tablet Take 1 tablet by oral route as directed . 03/07 completed Not Available Not Available Not Available benzonata te 200 mg capsule TAKE 1 CAPSULE BY MOUTH THREE TIMES DAILY FOR 7 DAYS 07/07 completed Not Available Not Available Not Available hydrocodo ne 5 mg-acetam inophen 325 mg tablet TAKE 1 TABLET BY MOUTH EVERY 6 HOURS NEEDED FOR PAIN active Not Available Not Available No t Available meloxicam 15 mg tablet TAKE 1 TABLET EVERY DAY BY ORAL ROUTE NEEDED. 11/11 completed Not Available Not Available Not Available metronida zole 0.75 % (37.5 mg/5 gram) vaginal gel INSERT 1 APPLICAT ORFUL VAGINALL Y AT BEDTIME FOR 5 NIGHTS 01/05 completed Not Available Not Available Not Available ondansetr on HCl 4 mg tablet TAKE 1 TABLET BY MOUTH EVERY 4 TO 6 HOURS NEEDED 01/05 completed Not Available Not Available Not Available prednison e 20 mg tablet TAKE 1 TABLET BY MOUTH EVERY DAY FOR 5 DAYS 11/11 completed Not Available Not Available Not Available penicilli n V potassium 500 mg tablet TAKE 1 TABLET BY MOUTH FOUR TIMES DAILY UNTIL ALL TAKEN 07/07 completed Not Available Not Available Not Available metronida zole 500 mg tablet TAKE 1 TABLET BY MOUTH EVERY 12 HOURS FOR 7 DAYS 03/07 completed Not Available Not Available Not Available acetamino phen 300 mg-codein e 30 mg tablet TAKE 1 TABLET BY MOUTH EVERY 6 HOURS NEEDED FOR PAIN 01/05 completed Not Available Not Available Not Available ciproflox acin 250 mg tablet TAKE 1 TABLET BY MOUTH EVERY 12 HOURS FOR 3 DAYS 05/07 completed Not Available Not Available Not Available clindamyc in 1 %-benzoyl peroxide 5 % topical gel APPLY TOPICALL Y TO FACE DAILY IN THE MORNING 01/05 completed Not Available Not Available Not Available amoxicill in 500 mg tablet TAKE 1 TABLET EVERY 8 HOURS BY ORAL ROUTE FOR 7 DAYS. 11/11 completed Not Available Not Available Not Available ketorolac 10 mg tablet TAKE 1 TABLET BY MOUTH EVERY 6 HOURS NEEDED FOR PAIN 11/11 completed Not Available Not Available Not Available Vitamin tablet 1 tablet at night 11/13 completed Multivit simeon Tablet Allow Substitu tion: True Refill Denied: No Not Available Not Available Not Available oxycodone -acetamin ophen 5 mg-325 mg tablet TAKE ONE-HALF TO ONE TABLET BY MOUTH EVERY 4 TO 6 HOURS NEEDED FOR PAIN. MAX 4 TABLETS PER DAY 01/05 completed Not Available Not Available Not Available amoxicill in 875 mg tablet TAKE 1 TABLET BY MOUTH TWICE DAILY UNTIL ALL TAKEN 01/10 completed Not Available Not Available Not Available Depo-Prov era 150 mg/mL intramusc ular suspensio n 1 injectio n every 3 months 11/11 completed Depo-Pro vera 150 mg/mL intramus cular Suspensi on RxNorm: [id number] Allow Substitu tion: True Refill Denied: No Edited by: viola yu(Jenni Hoyos ) on 11/03/19 20 Stopped by: viola yu(Jenni Hoyos ) on Not Available Not Available Not Available nitrofura ntoin macrocrys tevin 100 mg capsule 1 capsule BID x 7 days 07/13 completed Nitrofur antoin 100mg Capsules Allow Substitu tion: True Refill Denied: No Not Available Not Available Not Available tobramyci n 0.3 % eye drops INSTILL 1 DROP INTO RIGHT EYE THREE TIMES DAILY 07/07 completed Not Available Not Available Not Available triamcino lone acetonide 0.1 % topical ointment APPLY THIN COAT TO FOOT TWICE A DAY 11/11 completed Not Available Not Available Not Available lidocaine 5 % topical patch APPLY 1 PATCH TO SKIN DAILY. LEAVE ON 12 HOURS THEN REMOVE FOR 12 HOURS. DISCARD AFTER EACH USE 11/11 completed Not Available Not Available Not Available promethaz ine 25 mg tablet TAKE 1 TABLET BY MOUTH EVERY 6 HOURS NEEDED 11/11 completed Not Available Not Available Not Available ibuprofen 600 mg tablet TAKE 1 TABLET BY MOUTH THREE TIMES DAILY active Not Available Not Available No t Available methylpre dnisolone 4 mg tablets in a dose pack TAKE BY MOUTH DIRECTED 01/05 completed Not Available Not Available Not Available ketoconaz ole 2 % topical cream APPLY TOPICALL Y TO THE AFFECTED AREA EVERY DAY 01/05 completed Not Available Not Available Not Available clobetaso l 0.05 % scalp solution APPLY THIN LAYER TOPICALL Y TO THE SCALP UP TO TWICE DAILY NEEDED active Not Available Not Available No t Available ondansetr on 4 mg disintegr ating tablet TAKE 1 TABLET (4 MG TOTAL) BY MOUTH EVERY 8 (EIGHT) HOURS NEEDED FOR VOMITING OR NAUSEA active Not Available Not Available No t Available cefdinir 300 mg capsule TAKE 1 CAPSULE BY MOUTH TWICE A DAY FOR 10 DAYS active Not Available Not Available No t Available fluticaso ne propionat e 50 mcg/actua tion nasal spray,[employer] SHAKE LIQUID AND USE 1 SPRAY IN EACH NOSTRIL TWICE DAILY 01/10 completed Not Available Not Available Not Available clotrimaz ole 1 % topical cream APPLY TO LEG, FOOT AND ARM AND SURROUND ING AREAS OF SKIN 2 TIMES PER DAY IN THE MORNING AND EVENING 01/05 completed Not Available Not Available Not Available loratadin e 10 mg tablet TAKE 1 TABLET BY MOUTH EVERY DAY 01/05 completed Not Available Not Available Not Available amoxicill in 875 mg-potass ium clavulana te 125 mg tablet TAKE 1 TABLET BY MOUTH TWICE DAILY UNTIL ALL TAKEN 01/10 completed Not Available Not Available Not Available clindamyc in 1 % lotion 03/09 completed Not Available Not Available Not Available nitrofura ntoin monohydra te/macroc rystals 100 mg capsule TAKE 1 CAPSULE BY MOUTH TWICE DAILY FOR 5 DAYS 01/05 completed Not Available Not Available Not Available chlorhexi dine gluconate 0.12 % mouthwash 01/05 completed Not Available Not Available Not Available adapalene 0.3 % topical gel APPLY A PEA SIZED AMOUNT TO THE FACE ONCE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
--- NOTE | 2024-12-16 19:18 | ED.DENTAL ---
HPI - Dental/Oral General Chief complaint: Dental/Oral Stated complaint: i think i have a tooth infection Time Seen by Provider: 12/16/24 18:42 Source: patient Mode of arrival: ambulatory Limitations: no limitations History of Present Illness HPI Narrative: This is a 39-year-old female who presents to the ED for chief complaint of left-sided dental pain ongoing intermittently over the past couple of years. States that she has been back and forth with the dentist and had a root canal. States that she was last on antibiotics about a year ago and thinks that she may be getting an infection again. Reports pain radiating to the left ear. Denies fevers, chills, trismus, drooling, nausea, vomiting. Related Data Allergies Allergy/AdvReac Type Severity Reaction Status Date / Time No Known Allergies Allergy Verified 12/16/24 18:44 Review of Systems Review of Systems: All systems as dictated in HPI Exam Narrative: GENERAL: Well-appearing, well-nourished, and in no acute distress. HEAD: Normocephalic, atraumatic. EYES: PERRLA and EOMI. ENT: Scattered dental caries noted. No focal abscess or fluctuance. Floor of the mouth intact. Nares clear, no rhinorrhea or epistaxis. Mucous membranes moist. Oropharynx without tonsillar hypertrophy exudate or other lesions. NECK: Supple. No adenopathy or masses. CHEST: No respiratory distress. Clear to auscultation. No wheezes rales or rhonchi HEART: Regular rate and rhythm. No murmur heard. Normal peripheral pulses. ABDOMEN: Soft, nontender, nondistended, normal active bowel sounds. MSK: Normal range of motion. No edema. SKIN: Warm, dry, no rash. NEURO: Alert and oriented x4. No focal deficits. PSYCH: Normal mood and affect. Course Vital Signs Vital signs: Vital Signs Temperature 97.8 F 12/16/24 18:40 Pulse Rate 83 12/16/24 18:40 Respiratory Rate 16 12/16/24 18:40 Blood Pressure 134/87 12/16/24 18:40 Pulse Oximetry 100 12/16/24 18:40 Temperature 97.9 F 12/16/24 19:39 Pulse Rate 76 12/16/24 19:39 Respiratory Rate 16 12/16/24 19:39 Blood Pressure 129/94 H 12/16/24 19:39 Pulse Oximetry 100 12/16/24 19:39 MDM - Dental/Oral MDM Narrative Medical decision making narrative: This is a 39-year-old female who presents to the ED for chief complaint of left-sided dental pain. Vitals are normal. Exam couple for the above. No signs of deep space infection on exam. Will place patient on Augmentin prescription. She has follow-up with dentist soon. Patient will be discharged in stable condition. Supportive measures discussed and return precautions given. Patient is understanding and agreeable with plan for discharge with dental follow-up. Discharge Plan Discharge Clinical Impression: Dental caries Patient Disposition: Home Condition: Stable Instructions: Antibiotic Form Additional Instructions: Your exam is reassuring today. There is probably a dental infection that is starting. Please take antibiotics as prescribed. Follow-up closely with dentist for definitive management of this pain. Tylenol 500 mg and ibuprofen 600 mg every 6 hours as needed for pain control. If you have any new or worsening symptoms please return to the ER for further evaluation. Patient Language: [place] Islander Prescriptions: New amoxicillin-pot clavulanate 875-125 mg tablet 1 tablet PO Q12H Qty: 14 0RF Follow-up/Referrals: UNKNOWN,DOCTOR [Primary Care Provider] - Stand Alone Forms: Work/School Release IP Time of Disposition: 19:20
[2024-12-16] MEDS: ACETAMINOPHEN 500 MG TABLET 1000 MG PO (19:26)
[2024-12-16] MEDS: IBUPROFEN 400 MG TABLET 800 MG PO (19:27)
[2024-12-16 19:39] VITALS: BP 129/94; PULSE 76; RESP 16; TEMP 36.6; O2SAT 100
== END 2024-12-16 19:25 | disposition home or self-care (01) ==
PROVIDERS: Emergency Provider Physician Assistant
DX: K02.9 Dental caries, unspecified (principal)
CPT/HCPCS: 99283; A9270

== ENCOUNTER 2025-01-02 10:30 | Emergency (ER) | payer OTHER, SELFPAY ==
--- NOTE | ~2025-01-02 | CT_ITS ---
Non-contrast Head CT History: Headache Technique: Axial non-contrast imaging of the brain was performed. Dose reduction technique was used on this scan by utilizing automated exposure control and iterative reconstruction technique. The dose -length product (DLP) was 605.33 mGy-cm. Findings: There is no evidence of intracranial hemorrhage, mass lesion, or acute infarct. Brain par enchyma appears normal. The ventricles and subarachnoid spaces are normal in size. The calvarium ap pears normal. The visualized paranasal sinuses and mastoid air cells are clear. Impression: No significant abnormality seen. Reviewed, dictated and finalized at location . Impression: No significant abnormality seen.
--- OUTSIDE RECORDS SUMMARY | 2025-01-02 10:35 | XMS_ITS | Encounter Summary ---
Author Organization [facility] Address [facility] [place] [address] Care Team Providers Care Economist Research Assistant Name Role Phone Keith Jain MD Primary Care Provider [phone] Rut Gandraa MD Primary Care Provider [phone] Encounter Details Date Type Department Care Team (Late st Contact Info) Description 05/29/2018 Hospital Follow-up Call [facility] [place] [address] Kerline Berg RN Social History Tobacco Use [...] on filedocumented in this encounter Care Teams Economist Research Assistant Relationship Specialty Start Date End Date Keith Jain MD PCP - General 06/01/14 06/04/24 Rut Gandara MD 3 [facility], [address] [address] PCP - General FAMILY PRACTICE 06/05/24 documented as of this encounter
--- OUTSIDE RECORDS SUMMARY | 2025-01-02 10:35 | XMS_ITS | Clinical Summary ---
Author Organization [facility] Address [address] [place] [address] Care Team Providers Care Precision Jig Grinder Name Role Phone Unknown, Notinfile Primary Care [...] Department Care Team Description 10/10/2024 1:49 AM LEAF CONDITIONER HELPER - 10/10/2024 5:45 AM LEAF CONDITIONER HELPER Emergency [facility] [address] [place] [address] Hans Vang, Vaginal bleeding affecting early (Primary Dx) Discharge Disposition: Discharge to home or self care 10/10/2024 Telephone [facility] Obstetrical Gynecology [facility] [address] [place] [phone] Ajay Haro MD from Last 3 [...] on file Legal Sex Female 7:05 PM LEAF CONDITIONER HELPER Gender Identity Not on file Sexual Orientation Not on file Obstetrics History Last Filed Vital Signs Vital Sign Reading Time Taken Comments Blood Pressure 121/70 10/10/2024 5:09 AM LEAF CONDITIONER HELPER Pulse 72 10/10/2024 5:09 AM LEAF CONDITIONER HELPER Temperature 37 C (98.6 F) 10/09/2024 9:23 PM LEAF CONDITIONER HELPER Respiratory Rate 16 10/10/2024 5:09 AM LEAF CONDITIONER HELPER Oxygen Saturation 100% 10/10/2024 5:09 AM LEAF CONDITIONER HELPER Inhaled Oxygen Concentration - - Weight 77.1 kg (170 lb) 10/09/2024 9:23 PM LEAF CONDITIONER HELPER Height 160 cm (5' 3 ) 10/09/2024 9:23 PM LEAF CONDITIONER HELPER Body Mass Index 30.11 10/09/2024 9:23 PM LEAF CONDITIONER HELPER Plan of Treatment Health Maintenance Due Date [...] TRANSVAGINAL ED Urgent/IP Urgent 10/10/2024 4:11 AM LEAF CONDITIONER HELPER TROPONIN T HIGH-SENSITIVITY 6-HOUR Timed 10/10/2024 3:44 AM LEAF CONDITIONER HELPER B ABO / RH CONFIRMATION TESTING STAT 10/10/2024 1:59 AM LEAF CONDITIONER HELPER TROPONIN T HIGH-SENSITIVITY 4-HR Timed 10/10/2024 1:59 AM LEAF CONDITIONER HELPER ECG 12-LEAD STAT 10/09/2024 10:25 PM LEAF CONDITIONER HELPER ANTIBODY SCREEN Timed 10/09/2024 10:21 PM LEAF CONDITIONER HELPER ABO/RH Timed 10/09/2024 10:21 PM LEAF CONDITIONER HELPER TYPE AND SCREEN Timed 10/09/2024 10:21 PM LEAF CONDITIONER HELPER POCT HCG, URINE Routine 10/09/2024 10:14 PM LEAF CONDITIONER HELPER URINALYSIS, MICROSCOPIC ONLY STAT 10/09/2024 10:09 PM LEAF CONDITIONER HELPER URINE CULTURE STAT 10/09/2024 10:09 PM LEAF CONDITIONER HELPER URINALYSIS AND REFLEX TO MICROSCOPIC AND CULTURE STAT 10/09/2024 10:09 PM LEAF CONDITIONER HELPER EGFR STAT 10/09/2024 9:43 PM LEAF CONDITIONER HELPER HCG, BLOOD, QUANTITATIVE Add-On 10/09/2024 9:43 PM LEAF CONDITIONER HELPER DIFFERENTIAL AUTO STAT 10/09/2024 9:4 3 PM LEAF CONDITIONER HELPER TROPONIN T HIGH-SENSITIVITY SERIES (BASELINE, 2HR, 4HR, 6HR) STAT 10/09/2024 9:43 PM LEAF CONDITIONER HELPER LIPASE STAT 10/09/2024 9:43 PM LEAF CONDITIONER HELPER COMPREHENSIVE METABOLIC PANEL STAT 10/09/2024 9:43 PM LEAF CONDITIONER HELPER CBC WITH AUTO DIFFERENTIAL STAT 10/09/2024 9:43 PM LEAF CONDITIONER HELPER from Last 3 Months Results * US Ob Transvaginal (10/10/2024 4:11 AM LEAF CONDITIONER HELPER) Anatomical Region Laterality Modality Abdomen N/A Ultrasound 10/10/2024 4:16 AM LEAF CONDITIONER HELPER Narrative 10/10/2024 4:26 AM LEAF CONDITIONER HELPER EXAM DESCRIPTION: US OB TRANSVAGINAL REASON [...] Pedro Irene M.D. AR T: Report ID: [id number] Reading Location: [id number] Procedure Note Pedro Irene MD - 10/10/2024 [...] Pedro Irene M.D. AR T: Report ID: [id number] Reading Location: [place] [address] Hans Vang DO IMG OB US PROCEDURES Final Result * (ABNORMAL) Troponin T high-sensitivity 6-hour (10/10/2024 3:44 AM LEAF CONDITIONER HELPER) Trop T hs 21(H) <=14 ng/L Comment: Interpretive Data For further hscTnT resources including the diagnostic algorithm and an aid in interpretation, copy and paste this link: https://nrl.testcatalog.org/show/hsTrop Current Interpretive Data last revised 2020. Trop T hs delta -7 ng/L KADEEM SANCHEZ Trop T hs interp Equivocal KADEEM SANCHEZ Blood 10/10/2024 3:44 AM LEAF CONDITIONER HELPER 10/10/2024 3:47 AM LEAF CONDITIONER HELPER Tushar Meyer MD LAB BLOOD ORDERABLES Final Result KADEEM SANCHEZ [address] [facility] Department of Laboratories [place], [place] [id number] * (ABNORMAL) Troponin T high-sensitivity 4-hour (10/10/2024 1:59 AM LEAF CONDITIONER HELPER) Pathologist [facility] Trop T hs 23(H) <=14 ng/L Comment: Interpretive Data For further hscTnT resources including the diagnostic algorithm and an aid in interpretation, copy and paste this link: https://nrl.testcatalog.org/show/hsTrop Current Interpretive Data last revised 2020. Trop T hs delta -5 ng/L [facility] Trop T hs interp Equivocal [facility] Blood 10/10/2024 1:59 AM LEAF CONDITIONER HELPER 10/10/2024 2:02 AM LEAF CONDITIONER HELPER Tushar Meyer MD LAB BLOOD ORDERABLES Final Result Performing Organization Address [facility] Co de Phone Number [address] [place] [address] * ABO / Rh Confirmation Testing (10/10/2024 1:59 AM LEAF CONDITIONER HELPER) [facility] ABO/Rh Confirmation A Positive [facility] Blood 10/10/2024 1:59 AM LEAF CONDITIONER HELPER 10/10/2024 2:02 AM LEAF CONDITIONER HELPER Jania LIU LAB BLOOD ORDERABLES Final R esult Performing Organization Address [facility] Co de Phone Number [address] [place] [address] [facility] * ECG 12 lead (10/09/2024 10:25 PM LEAF CONDITIONER HELPER) [facility] Ventricular Rate EKG/Min 72 BPM [facility] Atrial Rate 72 BPM [facility] AL-Interval (MSEC) 152 ms [facility] QRS-Interval (MSEC) 72 ms [facility] QT-Interval (MSEC) 362 ms [facility] QTc 396 ms [facility] P [place] 57 degrees [facility] R [place] 36 degrees [facility] T [place] 29 degrees [facility] Diagnosis Normal sinus rhythm Normal ECG Confirmed by JAX ONEIL M.D. ([id number]) on 10/10/2024 11:23:51 PM [facility] 10/09/2024 10:2 5 PM LEAF CONDITIONER HELPER 10/10/2024 11:23 PM LEAF CONDITIONER HELPER Result [facility] Hans Vang DO ECG ORDERABLES Final Resul t Performing Organization Address [facility] Co de Phone Number [facility] * ABO/Rh (10/09/2024 10:21 PM LEAF CONDITIONER HELPER) ABO/Rh A Positive Blood 10/09/2024 10:2 1 PM LEAF CONDITIONER HELPER 10/09/2024 10:25 PM LEAF CONDITIONER HELPER Narrative [facility] - 10/09/2024 11:20 PM LEAF CONDITIONER HELPER Has the patient had Daratumumab or Isatuximab in the past 6 months?->Unknown Result [facility] Jania LIU LAB BLOOD BANK TEST ORDERABL ES Final Result Performing Organization Address [facility] de Phone Number [address] [place] [address] * Antibody screen (10/09/2024 10:21 PM LEAF CONDITIONER HELPER) Yehuda, indirect, Gel Interpretation Negative ABSC Blood 10/09/2024 10:2 1 PM LEAF CONDITIONER HELPER 10/09/2024 10:25 PM LEAF CONDITIONER HELPER Narrative [facility] 10/09/2024 11:20 PM LEAF CONDITIONER HELPER Has the patient had Daratumumab or Isatuximab in the past 6 months?->Unknown Result [facility] Jania LIU LAB BLOOD BANK TEST ORDERABL ES Final Result Performing Organization Address [facility] de Phone Number [address] [place] [address] * (ABNORMAL) POCT hCG, urine (10/09/2024 10:14 PM LEAF CONDITIONER HELPER) HCG, ur, POC Positive(A) Negative Lot Number [id number] QC Backgroud Clear Acceptable QC Control Line Acceptable Urine 10/09/2024 10:1 4 PM LEAF CONDITIONER HELPER Hans Vang DO POINT OF CARE TEST ORDERABL ES Final Result * (ABNORMAL) Urinalysis reflex to microscopic and culture Urine (10/09/2024 10:09 PM LEAF CONDITIONER HELPER) Color, ur Red(A) Yellow Clarity, ur Turbid(A) Clear [facility] Specific gravity, ur 1.031(H) 1.003 - 1.030 [facility] pH, urine 5.5 [facility] Comment: Interpretive Data U rine pH is affected by diet, medications, systemic acid-base disturbances, and renal tubular function. pH may affect urinary stone formation. For example, urine pH below 6.0 may help reduce the tendency for calcium phosphate stones and pH greater than 6.0 may reduce the tendency for uric acid stone formation. Source: [facility] Current Interpretive Data was last revised on 2017 Protein, ur ql 2+(A) Negative [facility] Glucose, ur ql Negative Negative [facility] Ketones, ur Negative Negative [facility] Bilirubin, ur Negative Negative [facility] Blood, ur 3+(A) Negative [facility] Urobilinogen, ur <2.0 <2.0 mg/dL [facility] Nitrite, ur Negative Negative [facility] Leukocyte esterase, ur 2+(A) Negative [facility] UA reflex comment Reflex to microscopic UA will be performed. [facility] Urine 10/09/2024 10:0 9 PM LEAF CONDITIONER HELPER 10/09/2024 10:19 PM LEAF CONDITIONER HELPER Hans Vang DO LAB MICROBIOLOGY - GENERAL ORDERABLES Final Result KADEEM [address] [facility] Department [place] [address] * (ABNORMAL) Urinalysis, microscopic only (10/09/2024 10:09 PM LEAF CONDITIONER HELPER) WBC, ur 11-20(A) 0 - 5 /HPF RBC, ur >50(A) 0 - 2 /HPF [facility] Mucous, ur Present(A) [facility] Culture Reflex Comment Reflex to urine culture will be performed. [facility] Urine 10/09/2024 10:0 9 PM LEAF CONDITIONER HELPER 10/09/2024 10:19 PM LEAF CONDITIONER HELPER Hans Vang DO LAB URINE ORDERABLES Final Result Performing Organization Address [facility] de Phone Number [address] [address] * Urine culture Urine (10/09/2024 10:09 PM LEAF CONDITIONER HELPER) Report Final Report: Less than 100,000 colonies/mL (clinically insignificant growth based on current clinical standards) Comment:Testing performed by : , 1 [facility] [place]., [address] Organism (CLINICALLY INSIGNIFICANT GROWTH [facility] Urine 10/09/2024 10:0 9 PM LEAF CONDITIONER HELPER 10/10/2024 1:55 AM LEAF CONDITIONER HELPER Narrative [facility] - 10/11/2024 6:37 AM LEAF CONDITIONER HELPER Urine culture reflexed based upon urinalysis results. Testing performed by [facility] ([phone]) Tushar Meyer MD LAB MICROBIOLOGY - GENERAL ORDERABLES Final Result Performing Organization Address [facility] de Phone Number [address] [address] * (ABNORMAL) Troponin T high-sensitivity series (baseline, 2hr, 4hr, 6hr) (10/09/2024 9:43 PM LEAF CONDITIONER HELPER) Trop T hs 28(H) <=14 ng/L Comment: Interpretive Data For further hscTnT resources including the diagnostic algorithm and an aid in interpretation, copy and paste this link: https://nrl.testcatalog.org/show/hsTrop Current Interpretive Data last revised 2020. Blood 10/09/2024 9:43 PM LEAF CONDITIONER HELPER 10/09/2024 9:57 PM LEAF CONDITIONER HELPER Hans Vang DO LAB BLOOD ORDERABLES Final Result Performing Organization Address [facility] Co de Phone Number KADEEM [address] Department [place] [address] * eGFR (10/09/2024 9:43 PM LEAF CONDITIONER HELPER) [facility] eGFR >90 >=60 mL/min/1. 73 m2 [...] last reviewed 2021. Blood 10/09/2024 9:43 PM LEAF CONDITIONER HELPER 10/09/2024 9:57 PM LEAF CONDITIONER HELPER Hans Vang DO LAB BLOOD ORDERABLES Final Result Performing Organization Address [facility] Co de Phone Number KADEEM [address] Department [place] [address] * (ABNORMAL) Differential, auto (10/09/2024 9:43 PM LEAF CONDITIONER HELPER) [facility] Neutrophil abs 7.4(H) 1.5 - 6.5 K/cumm Imm gran abs 0.2(H) 0.0 - 0.1 K/cumm [facility] Lymphocyte abs 1.9 0.8 - 3.3 K/cumm [facility] Monocyte abs 1.2(H) 0.2 - 0.8 K/cumm [facility] Eosinophil abs 0.2 0.0 - 0.5 K/cumm [facility] Basophil abs 0.1 0.0 - 0.1 K/cumm [facility] Neutrophil pct 68.2 % [facility] Comment: Interpretive Data Percent cell count reference ranges are not reported, since discordance with absolute values may lead to misinterpretation of CBC data. Current Interpretive Data was last revised on 2017. Imm gran pct 1.5 % [facility] Comment: Interpretive Data Percent cell count reference ranges are not reported, since discordance with absolute values may lead to misinterpretation of CBC data. Current Interpretive Data was last revised on 2017. Lymphocyte pct 17.3 % [facility] Comment: Interpretive Data Percent cell count reference ranges are not reported, since discordance with absolute values may lead to misinterpretation of CBC data. Current Interpretive Data was last revised on 2017. Monocyte pct 11.1 % [facility] Comment: Interpretive Data Percent cell count reference ranges are not reported, since discordance with absolute values may lead to misinterpretation of CBC data. Current Interpretive Data was last revised on 2017. Eosinophil pct 1.4 % [facility] Comment: Interpretive Data Percent cell count reference ranges are not reported, since discordance with absolute values may lead to misinterpretation of CBC data. Current Interpretive Data was last revised on 2017. Basophil pct 0.5 % [facility] Comment: Interpretive Data Percent cell count reference ranges are not reported, since discordance with absolute values may lead to misinterpretation of CBC data. Current Interpretive Data was last revised on 2017. Blood 10/09/2024 9:43 PM LEAF CONDITIONER HELPER 10/09/2024 9:57 PM LEAF CONDITIONER HELPER Hans Vang DO LAB BLOOD ORDERABLES Final Result [facility] [address] [facility] Department [place] [address] * (ABNORMAL) CBC with auto differential (10/09/2024 9:43 PM LEAF CONDITIONER HELPER) WBC 10.8(H) 3.8 - 9.9 K/cumm Hgb 11.4(L) 11.9 - 15.5 g/dL [facility] Hct 33.1(L) 35.6 - 45.5 % [facility] Plt 284 150 - 400 K/cumm [facility] MPV 9.8 9.1 - 12.3 fL [facility] RBC 3.58(L) 3.90 - 5.20 M/cumm [facility] MCV 92.5 81.3 - 96.4 fL [facility] MCH 31.8 27.1 - 33.3 pg [facility] MCHC 34.4 32.3 - 35.7 g/dL [facility] RDW CV 12.8 11.1 - 14.9 % [facility] RDW SD 43.8 35.7 - 48.1 fL [facility] NRBC abs 0.00 0.00 - 0.01 K/cumm [facility] Blood Venous blood specimen / Unknown 10/09/2024 9:43 PM LEAF CONDITIONER HELPER 10/09/2024 9:57 PM LEAF CONDITIONER HELPER Hans Vang DO LAB BLOOD ORDERABLES Final Result Performing Organization Address [facility] de Phone Number [address] [place] [address] * (ABNORMAL) hCG, blood, quantitative (10/09/2024 9:43 PM LEAF CONDITIONER HELPER) [facility] hCG, quant 45,621.0( H) 0.0 - 5.0 IUnits/L Comment: Interpretive Data Male: < 5 IU/L Non- premenopausal Female: <5 IU/L [employer] hCG Beta Quant assay procedure was used. Results from different manufacturers or methods may not be comparable. Serial testing should be performed using the same method. Interpretive Data was last revised on 2023 Blood 10/09/2024 9:43 PM LEAF CONDITIONER HELPER 10/09/2024 10:20 PM LEAF CONDITIONER HELPER Jania LIU LAB BLOOD ORDERABLES Final R esult Performing Organization Address [facility] Co de Phone Number [address] [place] [address] * Lipase (10/09/2024 9:43 PM LEAF CONDITIONER HELPER) Lipase 28 10 - 99 Units/L Blood Venous blood specimen / Unknown 10/09/2024 9:43 PM LEAF CONDITIONER HELPER 10/09/2024 9:57 PM LEAF CONDITIONER HELPER Hans Vang DO LAB BLOOD ORDERABLES Final Result [facility] [address] [facility] Department [place] [address] * (ABNORMAL) Comprehensive metabolic panel (10/09/2024 9:43 PM LEAF CONDITIONER HELPER) Sodium 131(L) 135 - 145 mmol/L Potassium, pl 3.4 3.3 - 4.9 mmol/L [facility] Chloride 99 97 - 110 mmol/L [facility] CO2 22 22 - 32 mmol/L [facility] Anion gap 10 2 - 15 mmol/L [facility] BUN 9 6 - 25 mg/dL [facility] Creatinine 0.73 0.60 - 1.10 mg/dL [facility] Glucose 107 70 - 199 mg/dL [facility] Comment: Interpretive Data Fasting glucose >/= [...] Calcium 8.9 8.5 - 10.3 mg/dL [facility] Bilirubin, total 0.5 0.1 - 1.2 mg/dL [facility] Protein, pl 7.3 6.5 - 8.5 g/dL [facility] Albumin 3.8 3.5 - 5.0 g/dL [facility] Alk phos 62 40 - 130 Units/L [facility] ALT 17 7 - 45 Units/L [facility] AST 32 10 - 45 Units/L [facility] Blood 10/09/2024 9:43 PM LEAF CONDITIONER HELPER 10/09/2024 9:57 PM LEAF CONDITIONER HELPER Hans Vang DO LAB BLOOD ORDERABLES Final Result KADEEM SANCHEZ [address] [facility] Department [place] [address] from Last 3 Months Insurance [facility] [employer] Care Teams Precision Jig Grinder Relationship Specialty Start Date End Date Unknown, Notinfile PCP - General 04/15/22 Unknown, Notinfile 04/15/22
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
--- OUTSIDE RECORDS SUMMARY | 2025-01-02 10:35 | XMS_ITS | Encounter Summary ---
Author Organization [facility] Address [facility] [place] [address] Care Team Providers Care Loom Control Chain Builder Name Role Phone Keith Jain MD Primary Care Provider [phone] Rut Gandara MD Primary Care Provider [phone] Encounter Details Date Type Department Care Team (Late st Contact Info) Description 05/30/2018 Hospital Follow-up Call [facility] [place] [address] Katherine Degroot RN Social History Tobacco Use [...] on filedocumented in this encounter Care Teams Loom Control Chain Builder Relationship Specialty Start Date End Date Keith Jain MD PCP - General 06/01/14 06/04/24 Rut Gandara MD [address] [facility], [address] [address] PCP - General FAMILY PRACTICE 06/05/24 documented as of this encounter
--- OUTSIDE RECORDS SUMMARY | 2025-01-02 10:35 | XMS_ITS | Clinical Summary ---
Author Organization [facility] Address [address] [facility] [place] [address] Care Team Providers Care Price Checker Name Role Phone Dyana Swan Primary Care Provider [phone] Source Comments [facility],non-[facility] Affiliates and Associated Physician Practices is amultiple site organization consisting of ambulatory clinics and hospital sitesin [place], [place], [place]. This disclosure is being madepursuant to the Care Everywhere program and may not contain all information available regarding this patient. 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 [address] NAJER[place] [address] [place] [address] PCP - General 01/22/18
--- OUTSIDE RECORDS SUMMARY | 2025-01-02 10:35 | XMS_ITS | Data Portability ---
Author Organization [facility] [employer] , [facility] Address [address] [place] [address] Care Team Providers Care Repairer Kiln Car Name Role Phone [facility] Butterm[facility] Helper Assessment Encounter Date Assessment Date Assessment LastModified by Organization Details LastModified Time 07/07/2022 07/07/2022 Pt is a 36 yo F here today for STI testing. Discussed the various types of STIs, related symptoms and the potential consequences (including effects on fertility) of STI. Reviewed ways to limit exposure and prevention techniques. Reports no s/s of infection just wants POC SureRen[facility] Declines STI blood work [email or web address] Not available 07/07/2022 17:18:15 01/05/2023 01/05/2023 Pt is a 37 yo F here today for Infection/STI testing. Discussed the various types of Infections and STIs, related symptoms and the potential consequences (including effects on fertility) of STI. Reviewed ways to limit exposure and prevention techniques. [facility] [email or web address] Not available 01/05/2023 16:41:03 Plan of Treatment Reminders Order Date Submit Date Provider Last Modified By Organization Details Last Modified Time Details Appointments None recorded. Lab unlisted lab - STD screening ([facility]) 2023 024 [employer] Fede, [address] [place], [address], 13:32:34 bacterial vaginosis + vaginitis panel, vaginal 2023 024 [employer] Fede, [address] [place], [address], 4 14:40:05 bacterial vaginosis + vaginitis panel, vaginal 2022 023 [facility] Fede, [address] [place], [address], 3 09:42:58 unlisted lab - STD screening ([facility]) 2022 023 [facility] [employer] Fede, [address] [place], [address], 3 11:27:10 bacterial vaginosis + vaginitis panel, vaginal 2022 023 [facility] [employer] Fede, [address] [place], [address], 3 15:29:00 unlisted lab - STD screening ([facility]) 2022 023 [facility] [employer] Fede, [address] [place], [address], 3 11:26:50 bacterial vaginosis + vaginitis panel, vaginal 2021 022 [facility] [employer] Fede, [address] [place], [address], 2 15:57:01 Referral None recorded. Procedures None recorded. Surgeries None recorded. Imaging None recorded. Medication Orders None recorded. Patient TargetsNo targets recorded. Patient Instructions Encounter Date Encounter Id Patient Instructions Last Modified By Organization Details Last Modified Time 07/07/2022 [id number] safer sex: care instructions [email or web address] Not available 07/07/2022 17:18:33 03/09/2023 [id number] Patient Health Questionnaire-9* [email or web address] Not available 03/12/2023 11:02:53 learning about dietary guidelines Not available 03/09/2023 16:06:50 eating healthy foods: care instructions Not available 03/09/2023 16:06:50 abuse/domestic violence education Not available 03/09/2023 16:06:50 weight managemen t education Not available 03/09/2023 16:06:50 03/07/2024 [id number] body mass index: care instructions Not available [...] BV POS negati ve abnormal Not Available [employer] [address] [place] [address], [address], 07/10/2022 15:57:01 07/07/20 22 07/10/2022 VAGIN ITIS PLUS STD PANEL mo species C. spp neg negati ve normal Not Available [employer] [address] [place] [address], [address], 07/10/2022 15:57:01 07/07/20 22 07/10/2022 VAGIN ITIS PLUS STD PANEL mo glabrata C. gla neg negati ve normal Not Available [employer] [address] [place] [address], [address], 07/10/2022 15:57:01 07/07/20 22 07/10/2022 VAGIN ITIS PLUS STD PANEL trichomonas vaginalis CV/TV TRICH neg negati ve normal Not Available [employer] [address] [place] [address], [address], 07/10/2022 15:57:01 07/07/20 22 07/10/2022 VAGIN ITIS PLUS STD PANEL chlamydia trachomatis CT neg negati ve normal This repor t is inten ded for us in clini gil monit oring and manag ement of consuelo nts. It is not inten ded for use in medic al- gal appli catio n. Not Available [employer] [facility] [address] [place], [address], 07/10/2022 15:57:01 07/07/20 22 07/10/2022 VAGIN ITIS PLUS STD PANEL neisseria gonorrhoeae GC neg negati ve normal This repor t is inten ded for us in clini gil monit oring and manag ement of consuelo nts. It is not inten ded for use in medic al-le gal appli catio n. Not Available [employer] [address] [place] [address], [address], 07/10/2022 15:57:01 01/06/20 23 01/06/2023 STD SCREE ROSARIO ([facility] ) hep BS Ag Non-Re active non-re active normal Not Available [address], [address], 01/06/2023 11:26:50 01/06/20 23 01/06/2023 STD SCREE ROSARIO ([facility] ) hep C Ab Non-Re active non-re active normal Not Available [address], [address], 01/06/2023 11:26:50 01/06/20 23 01/06/2023 STD SCREE ROSARIO ([facility] ) HIV 1/2 Ag/Ab Non-Re active non-re active normal Not Available [address], [address], 01/06/2023 11:26:50 01/06/20 23 01/06/2023 STD SCREE ORSARIO ([facility] ) syphilis Ab Non-Re active non-re active normal Not Available [address], [address], 01/06/2023 11:26:50 01/06/20 23 01/08/2023 VAGIN ITIS PLUS STD PANEL bacterial vaginosis BV POS negati ve abnormal Not Available [address], [address], 01/08/2023 15:29:00 01/06/20 23 01/08/2023 VAGIN ITIS PLUS STD PANEL mo species C. spp POS negati ve abnormal Not Available [address], [address], 01/08/2023 15:29:00 01/06/20 23 01/08/2023 VAGIN ITIS PLUS STD PANEL mo glabrata C. gla neg negati ve normal Not Available [address], [address], 01/08/2023 15:29:00 01/06/20 23 01/08/2023 VAGIN ITIS PLUS STD PANEL trichomonas vaginalis CV/TV TRICH neg negati ve normal Not Available [address], [address], 01/08/2023 15:29:00 01/06/20 23 01/08/2023 VAGIN ITIS PLUS STD PANEL chlamydia trachomatis CT neg negati ve normal This repor t is inten ded for us in clini gil monit oring and manag ement of patie nts. It is not inten ded for use in medic al-le gal appli catio n. Not Available [address], [address], 01/08/2023 15:29:00 01/06/20 23 01/08/2023 VAGIN ITIS PLUS STD PANEL neisseria gonorrhoeae GC neg negati ve normal This repor t is inten ded for us in clini gil monit oring and manag ement of patie nts. It is not inten ded for use in medic al-le gal appli catio n. Not Available [address], [address], 01/08/2023 15:29:00 03/09/20 23 03/10/2023 STD SCREE ROSARIO ([facility] ) hep BS Ag Non-Re active non-re active normal Not Available [address], [address], 03/10/2023 11:27:10 03/09/20 23 03/10/2023 STD SCREE ROSARIO ([facility] ) hep C Ab Non-Re active non-re active normal Not Available [address], [address], 03/10/2023 11:27:10 03/09/20 23 03/10/2023 STD SCRECasandra PONCE ([facility] ) HIV 1/2 Ag/Ab Non-Re active non-re active normal Not Available [address], [address], 03/10/2023 11:27:10 03/09/20 23 03/10/2023 STD GERMÁN PONCE ([facility] ) syphilis Ab Non-Re active non-re active normal Not Available [address], [address], 03/10/2023 11:27:10 03/09/20 23 03/13/2023 VAGIN ITIS PLUS STD PANEL bacterial vaginosis BV POS negati ve abnormal Not Available [address], [address], 03/14/2023 09:42:58 03/09/20 23 03/13/2023 VAGIN ITIS PLUS STD PANEL mo species C. spp POS negati ve abnormal Not Available [address], [address], 03/14/2023 09:42:58 03/09/20 23 03/13/2023 VAGIN ITIS PLUS STD PANEL mo glabrata C. gla neg negati ve normal Not Available [address], [address], 03/14/2023 09:42:58 03/09/20 23 03/13/2023 VAGIN ITIS PLUS STD PANEL trichomonas vaginalis CV/TV TRICH neg negati ve normal Not Available [address], [address], 03/14/2023 09:42:58 03/09/2003/13/2023 VAGIN ITIS PLUS STD PANEL chlamydia trachomatis CT neg negati ve normal This repor t is inten ded for us in clini gil monit oring and manag ement of [facility] nts. It is not inten ded for use in medic al-le gal appli catio n. Not Available [address], [address], 03/14/2023 09:42:58 03/09/2003/13/2023 VAGIN ITIS PLUS STD PANEL neisseria gonorrhoeae GC neg negati ve normal This repor t is inten ded for us in clini gil monit oring and manag ement of [facility] nts. It is not inten ded for use in medic al- gal appli catio n. Not Available [address], [address], 03/14/2023 09:42:58 04/09/2004/11/2023 CULTU RE, URINE , ROUTI NE culture, urine, routine SEE NOTE abnormal CULTU RE, URINE , ROUTI NE Micro Numbe r: [id number] Test Statu s: Final Speci men [...] lexin and lorac arbef . Not Available [facility] [address] [place], [address], 04/11/2023 18:42:33 01/11/20 24 01/14/2024 STD SCREE ROSARIO ([facility] ) hep BS Ag Non-Re active non-re active normal Not Available [address], [address], 01/14/2024 13:32:34 01/11/20 24 01/14/2024 STD SCREE ROSARIO ([facility] ) hep C Ab Non-Re active non-re active normal Not Available [address], [address], 01/14/2024 13:32:34 01/11/20 24 01/14/2024 STD SCREE ROSARIO ([facility] ) HIV 1/2 Ag/Ab Non-Re active non-re active normal Not Available [address], [address], 01/14/2024 13:32:34 01/11/20 24 01/14/2024 STD SCREE ROSARIO ([facility] ) syphilis Ab Non-Re active non-re active normal Not Available [address], [address], 01/14/2024 13:32:34 01/11/20 24 01/14/2024 VAGIN ITIS PLUS STD PANEL bacterial vaginosis BV POS negati ve abnormal Not Available [address], [address], 01/14/2024 14:40:05 01/11/20 24 01/14/2024 VAGIN ITIS PLUS STD PANEL mo species C. spp POS negati ve abnormal Not Available [address], [address], 01/14/2024 14:40:05 01/11/20 24 01/14/2024 VAGIN ITIS PLUS STD PANEL mo glabrata C. gla neg negati ve normal Not Available [address], [address], 01/14/2024 14:40:05 01/11/20 24 01/14/2024 VAGIN ITIS PLUS STD PANEL trichomonas vaginalis CV/TV TRICH POS negati ve abnormal Not Available [address], [address], 01/14/2024 14:40:05 01/11/20 24 01/14/2024 VAGIN ITIS PLUS STD PANEL chlamydia trachomatis CT neg negati ve normal This repor t is inten ded for us in clini gil monit oring and manag ement of [facility] nts. It is not inten ded for use in medic al-le gal appli catio n. Not Available [employer] [address] [place] [address], [address], 01/14/2024 14:40:05 01/11/20 24 01/14/2024 VAGIN ITIS PLUS STD PANEL neisseria gonorrhoeae GC neg negati ve normal This repor t is inten ded for us in clini gil monit oring and manag ement of patie nts. It is not inten ded for use in medic al-le gal appli catio n. Not Available [employer] [address] [facility], [place], [address], 01/14/2024 14:40:05 Result Notes None recorded. Problems [...] 3 01:22:04 Gestatio n period, 38 weeks 93364859 Completed 201709/02/2018 38 weeks gestatio n of pregnanc y; Progress : Stable Added By: Camelia Galloway Add to Current Problems : NO ProblemS tatus: Resolve Not Available [employer] 2 20:51:43 Finding of pattern of menstrua l cycle 925813952 Completed 201805/07/2023 Excessiv e and frequent menstrua [...] 20:51:44 Poor growth affectin g manageme nt 648231464 Completed 201707/06/2018 Small for dates; Location : None Progress : Stable Added By: Kaitlin Paris Add to Current Problems : YES ProblemS tatus: Resolve Not Available [facility] 2 20:51:43 Atypical squamous cells of undeterm ined signific ance on cervical Papanico laou smear 836953543 Completed 201805/07/2023 Atypical squamous cells of undeterm ined signific ance on cytologi c smear of cervix (ASC-US) ; Progress : Stable Added By: Kaitlin Paris Add to Current Problems : YES ProblemS tatus: Current Erika Britsch null, [place] [facility] 3 01:22:12 Human papillom avirus deoxyrib onucleic acid detected , high risk on cervical specimen 212481844 Completed 201805/07/2023 Cervical high risk human papillom avirus (HPV) DNA test positive ; Progress : Stable Added By: Kaitlin Paris Add to Current Problems : YES ProblemS tatus: Current Erika Britsch null, [place] [facility] 3 01:22:14 Acute vaginiti s 34911451 Completed 201805/07/2023 Acute vaginiti s; Progress : Stable Added By: Ketan Rhodes Add to Current Problems : YES ProblemS tatus: Current Erika Britsch null, [place] [facility] 3 01:21:55 Syphilis test finding 392868282 Completed 201905/07/2023 Encouncole r for screenin g [...] 01:22:09 Normal pregnanc y in [place] 02647028514 4106 Completed 201709/02/2018 Encounte r for supervis ion of other normal pregnanc y, third trimeste r; Progress : Stable Added By: Camelia Galloway Add to Current Problems : NO ProblemS tatus: Resolve Not Available [facility] 2 20:51:43 Amenorrh ea 93565622 Completed 201805/07/2023 Amenorrh ea, unspecif ied; Progress : Stable Added By: Rosy Randle Add to Current Problems : YES ProblemS tatus: Current Erikayayo Sifuentessch null, [facility] 3 01:21:46 Screenin g for malignan t neoplasm of cervix Completed 201805/07/2023 Encounte r for screenin g for malignan t neoplasm of cervix; Progress : Stable Added By: Jenni Cain Add to Current Problems : YES ProblemS tatus: Current Erika Sifuentessch null, [facility] 3 01:21:49 Normal pregnanc y 28994189 Completed 201701/11/2024 Medical visit for normal pregnanc y; Location : None Progress : Stable Added By: Camelia Galloway Add to Current Problems : YES ProblemS tatus: Current Richard Thompson null, [facility] 4 16:17:00 Antenata l screenin [...] Start Date : 10/30/19 18 Not Available [facility] 2 20:51:44 Pregnanc y detectio n examinat ion Completed 201805/07/2023 Encounte r for pregnanc y test, result positive ; Progress : Stable Added By: Ashley Smith Add to Current Problems : YES ProblemS tatus: Current Erika Romeo null, [facility] [employer] IV 3 01:22:17 Notes:GBS Screening (V28.6) ; [...] of Last Pap Smear completed Becky Nathanlister [facility] [employer] IV 01/05/2023 16:34:45 procedure on eye completed Cecily Elcar [facility] Drive [facility] IV 09/30/2021 00:59:25 Imaging Results None recorded. [...] 150 mg/mL intramus cular Suspensi on RxNorm: [id number] Allow Substitu tion: True Refill Denied: No [...] Diclegis 10mg/10m g Tablets, Delayed Release RxNorm: [id number] Allow Substitu tion: True Refill Denied: No Not Available Not Available Not Available Diclegis One PO QHS 10/29 completed Diclegis 10mg/10m g Tablets, Delayed Release RxNorm: [id number] Allow Substitu tion: True Refill Denied: No [...] Updated DateTime 07/07/2022 160.02 cm 25 kg/m2 85206.96 g Jodee Fine [place] [employer] [facility] 07/07/2022 17:09:09 Date Recorded Body height Body mass index (BMI) Body weight Body temperature Systolic blood pressure Diastolic blood pressure Provider Name and Address Organization Details Last Updated DateTime 3 160.02 cm 26.4 kg/m2 68150.5 4 g 98.1 [degF] 110 mm[Hg] 82 mm[Hg] Becky Oh [place] [employer] [facility] 3 16:33:13 Date Recorded Body height Body mass index (BMI) Body weight Body temperature Systolic blood pressure Diastolic blood pressure Provider Name and Address Organization Details Last Updated DateTime 3 160.02 cm 25.3 kg/m2 48858.2 7 g 97.7 [degF] 104 mm[Hg] 66 mm[Hg] Erika Romeo [employer] [facility] 3 15:45:35 Date Recorded Body height Body mass index (BMI) Body weight Body temperature Systolic blood pressure Diastolic blood pressure Provider Name and Address Organization Details Last Updated DateTime 4 160.02 cm 26.2 kg/m2 68454.6 7 g 97.7 [degF] 112 mm[Hg] 70 mm[Hg] Richard Thompson [employer] [facility] 4 16:27:34 Date Recorded Body height Body mass index (BMI) Body weight Systolic blood pressure Diastolic blood pressure Provider Name and Address Organization Details Last Updated DateTime 03/07/2024 160.02 cm 26.4 kg/m2 56684.2 6 g 110 mm[Hg] 62 mm[Hg] Sheila Murcia [facility] [employer] 4 16:01:35 Social History Question Answer Notes LastModified by [employer] Details LastModified Time Tobacco Smoking Status Never Smoker Erika Romeo null, [facility] [employer] 03/09/2023 15:49:31 What Is Your Level Of [...] Status Question Answer Note LastModified by [employer] Details LastModified Time What is your exercise [...] Colon Cancer N Cytomegalovirus N Hyperthyroidism N Herpes (HSV) N Breast Cancer N Blood Transfusion N MRSA N Lung Cancer N Hypothyroidism N Depression N Incontinence N Panic Attacks N Neurological Disorder N Deep Vein Thrombosis N Anxiety Disorder N Autoimmune disease N Arthritis N Tuberculosis/Positive PPD N Shingles N Polycystic Ovarian Syndrome N Cervical Cancer N Chlamydia N Hematuria N Stroke N Varicosities N Crohn's Disease N Seasonal allergies N Alzheimer's/Dementia N COPD/Emphysema N HPV/Genital Warts N Endometriosis N IBS (Irritable Bowel Syndrome) N History of Abnormal Pap Y High Cholesterol N Liver Disease N Kidney Infection N Fibromyalgia N Ulcer N Kidney Disease N HIV N Gallbladder disease N Sickle Cell Disease/Trait N Von Willebrand disease N ADD/ADHD N Eating Disorder N Anemia N Diabetes Mellitus (non-insulin dependent ) N Ovarian Problems N Multiple Sclerosis N Gonorrhea N Frequent Urinary Tract infections N Osteopenia N Headaches/migraines N Ovarian Cancer N Diabetes (insulin dependent) N Seizures/Epilepsy N Fibroids N Heart Attack N Asthma N Lupus N Endometrial Cancer N Rubella N Blood Clotting Disorder N [...] SNOMED-CT Code Diagnosis ICD10 Code Diagnosis Note [id number] EBER PRESSLEY CNM [facility] h [address] [place] [address] 11/11/2021 15:45:39 11/12/2021 19:03:29 Gynecologic examination 18336497 Z01.419 Screening for malignant neoplasm of cervix 841481086 Z12.4 Pap, HPV and STI testing collected without complicati on Contracept ion care education 933525040 Z30.09 Venereal d isease screening 429780662 Z11.3 routine screening Vaginitis 28006534 N76.0 BV noted on exam RX sent [id number] [facility] [address] [place] [address] 07/07/2022 16:34:05 07/10/2022 11:25:00 Screening for disorder 121176301 Z11.3 N89.9 [id number] [facility] [address] [place] [address] 01/05/2023 15:43:01 01/05/2023 16:44:22 Infection screening 803046855 Z11.9 [id number] SON DESAI, [facility] [address] [place] [address] 03/09/2023 15:29:15 03/12/2023 11:09:48 Gynecologic examination 20894333 Z01.419 Patient is an establishe d patient who presents for a gynecologi gil Annual Exam. The patient denies any changes in her medical history. The patient denies any changes in her family medical history. Annual Exam:She reports having no significan t PET ADOPTION COUNSELOR symptoms.H er menses are regular, occurring every [...] screening: Managed by PCP Depression screening 171 569247 Z13.31 PHQ9: 3. Pt educated on normal scoring, and discussed depression precaution s and when to notify HCP/go to ER. Venereal d isease screening 982268067 Z11.3 Pt educated on importance of condom use for protection against STD's. Samples collected and sent. Further POC pending lab result review. Pt states understand ing of POC. Pain of breast 28287031 N64.4 Pt educated on breast cancer screening guidelines and discussed normal CBE in office. Pt encouraged to decrease caffeine, chocolate, and nut intake in diet, and push p.o. water intake. Pt may use OTC NSAID therapy. Plan to re-eval sx after diet modificati on. If persistent would recommend breast imaging. Pt states understand ing of POC. Screening for malignant neoplasm of cervix 557625893 Z12.4 ASCCP guidelines reviewed with patient. Pap Hx: No pap collected today. Pt states understand ing and is amenable to POC. Screening for malignant neoplasm of breast 974448568 Z12.39 Pt educated on breast cancer screening guidelines . Pt states understand ing of POC. [id number] [facility] [address] [place] [address] 01/11/2024 16:03:43 01/14/2024 14:27:48 Venereal disease screening 057530914 Z11.3 Pt educated on importance of condom use for protection against STD's. Samples collected and sent. Further POC pending lab result review. Pt states understand ing of POC. Family his tory of malignant neoplasm of lung 800214092 Z80.1 Patient presents [facility]. Discussed plan with patient, who [...] t voiced understand ing, no further questions. [id number] CHAS CORNEJO [facility] h [address] [place] [address] 03/07/2024 15:18:42 03/07/2024 16:46:22 Gynecologic examination 48722929 Z01.419 Patient is an establishe d patient who presents for a gynecologi gil Annual Exam. The patient denies any changes in her medical history. The patient denies any changes in her family medical history. Annual Exam:LMP:She reports having no significan t PET ADOPTION COUNSELOR symptoms.H er menses are regular, occurring every [...] PCP Screening for malignant neoplasm of cervix 966506637 Z12.4 ASCCP guidelines reviewed with patient. Pap Hx: No pap collected today. Pt states understand ing and is amenable to POC. Depression screening 171 727630 Z13.31 PHQ9: 4. Pt educated on normal scoring, and discussed depression precaution s and when to notify HCP/go to ER. Screening for malignant neoplasm of breast 033143218 Z12.39 Pt educated on breast cancer screening guidelines . Denies any concerns with breast at this time. Denies any lumps, bumps, nipple discharge or unusual soreness. Pt states understand ing of POC. Venereal d isease screening 619533485 Z11.3 Pt educated on importance of condom use for protection against STD's. Health Concerns Section Related Observation LastModified by Organization Detai ls LastModified Time None Recorded Concern Status LastModified by Organization Details LastModified Time None Recorded Advance Directives Directive None Recorded Payers Insurance Date Sequence Insurance Name Policy Number Policy Goldstein Covered Member ID Goldstein Member ID Guarantor Name 10/20/2024 1 [place] [id number] Lucia A Chevis [id number] Lucia Chevis 03/07/2024 [facility] (MEDICAID HMO) [id number] Lucia Chevis [id number] Lucia Chevis 03/07/2024 2 [facility] - DOS ON OR AFTER 21 (MEDICAID REPLACEMENT - HMO) Lucia Chevis [id number] Lucia Chevis 03/07/2024 2 [employer] (MEDICAID) Lucia Chevis [id number] Lucia Chevis 03/07/2024 1 [facility] [id number] Lucia A Chevis [id number] Lucia Chevis 03/07/2024 2 [place] [employer] Lucia Chevis [id number] Lucia Chevis Notes Date Note Type Note Provider Name and Address Organization Details Recorded Time 07/07/2022 text/html pt is here today to get std screening. states she wants to be safe and double check. No problems noted at this time. STEVE BRADLEY [address] [place] [address], [phone], [facility] [employer] IV 07/07/2022 17:18:48 01/05/2023 text/html STD screeningRep orted bypatient.Associated Symptoms:no vaginal itching; no vaginal burning; no swelling/redness; no fever/chills; no diarrhea; no abdominal pain; no pelvic pain; no vaginal pain; no pain during urination; no pain during intercourse; no vaginal lump; no genital lesion; no sexually transmitted disease; no fever STEVE BRADLEY [address] [place], [address], [facility] [employer] IV 01/05/2023 16:41:59 03/09/2023 text/html Annual GYNReport [...] it was a sharp pain. CHAS CORNEJO [address] [place], [address], [facility] [employer] IV 03/09/2023 21:43:34 01/11/2024 text/html Lucia 38 y/o is here for STD screening. She states she has a new partner and wanted to get some testing done. She desires STD bloodwork. She also reports noticing an increase in vaginal discharge, denies vaginal odor and itching. Her LMP was 01/02/24. She has no other concerns as of today. CHAS CORNEJO [address] [place], [address], [facility] [employer] IV 01/11/2024 16:37:07 03/07/2024 text/html Pt states she is doing well. Last pap: 2021 normal and neg HPV. Pt reports having regular monthly cycles that are not heavy or painful. LMP: 02/29/24 Pt is currently not using anything for contraception. Pt declines STD screening via culture and serum testing. Pt has no other concerns. CHAS CORNEJO [address] [place], [address], [facility] Jingshi Wanwei IV 03/07/2024 16:18:43 OBGyn Episode Ob Episode Information Episode Created Date Number of Fetuses Patient Bloodtype Patient rh Status Prepregnancy Weight lbs Domestic Partner Domestic Partner Phone Father Name Securities Counselor Status 03/07/20 24 1 CLOSED Fetus Data [...] Domestic Partner Domestic Partner Phone Father Name Securities Counselor Status 03/07/20 24 1 CLOSED Fetus Data [...] Domestic Partner Domestic Partner Phone Father Name Securities Counselor Status 11/11/19 22 1 CLOSED Fetus Data First Name Last Name Admitted to NICU Weight (g) Sex Living Outcome Pediatric Complications Fetus ID Race Codes Race Delivery Type 2919.99 85 M [id number] Danny Calculation Initial Danny Date Initial Exam [...] Domestic Partner Domestic Partner Phone Father Name Securities Counselor Status 11/11/19 22 1 CLOSED Fetus Data First Name Last Name Admitted to NICU Weight (g) Sex Living Outcome Pediatric Complications Fetus ID Race Codes Race Delivery Type M [id number] Danny Calculation Initial Danny Date Initial Exam [...]
--- OUTSIDE RECORDS SUMMARY | 2025-01-02 10:35 | XMS_ITS | Clinical Summary ---
Author Organization [facility] Address Psychiatric hospital[address] [place] [address] Care Team Providers Care White Washer Name Role Phone Rut Gandara MD Primary Care Provider [phone] Allergies No known active allergies Medications vitamin, [...] Noted Date Diagnosed Date (spontaneous vaginal delivery) ([facility]) Normal labor ([facility]) 05/15/2018 Immunizations Immunization Administration Dates Next Due [...] patient's age to complete this topic Insurance [place] Advance Directives * Full Code (Latest Code Status on File) Date Activated Date Inactivated Comments 05/15/2018 12:50 PM 05/15/2018 10:45 PM Care Teams White Washer Relationship Specialty Start Date End Date Rut Gandara MD 3 [facility], [address] [address] PCP - General FAMILY PRACTICE 06/05/24
--- OUTSIDE RECORDS SUMMARY | 2025-01-02 10:35 | XMS_ITS | Continuity of Care Document ---
Author Organization [facility] Address [address] [place] [address] Phone Care Team Providers Care Waredresser Name Role Phone Unavailable Unavailable Unavailable Allergies, Adverse Reactions, Alerts Substance Reaction Status Criticality No Known Allergies Active No Inform ation Procedures Procedure Date X-RAY EXAM CHEST 2 VIEWS OFFICE/OUTPATIENT VISIT, EST Advance Directives Directive Yes / No Effective Date File Name No Information Encounters Encounter Description Practice Location Reason(s) For Visit Diagnoses Date Provider Providers Copied on Encounter [facility] , [address], [place], [place], [id number], tel:[phone] [facility] No Information No Information OFFICE/OUTPAT IENT VISIT, EST [facility] , [address], [place], [place], [address], tel:[phone] [facility] PPD result (chief complaint) Body mass index (BMI) 27.0-27.9, adultPPD positive No Information Family History Family Member Type Diagnosis Age At Onset No Information Payers Payer name Insurance type Covered constitution party ID Authoriza tion(s) No Information Social History Type Description Quantity Date Captured Comments Sex Female Smoking Status No Information Chief Complaint And Reason For Visit No Information Reason For Referral Reason For Referral No Information Plan Of Treatment Date Type Action Status Future Order: Lab Order QuantiFE ELKE(R)-TB Gold Plus ([id number]), Scheduled for: Ordered Nutrition Recommendation Nutrition therap y completed History Of Present Illness Encounter Date Complaint History Of Prese nt Illness PPD result pt here for posi tive PPD1st PPD placed - did not return for hkot7ri PPD placed and 0 mm3rd PPD placed [...]
--- OUTSIDE RECORDS SUMMARY | 2025-01-02 10:35 | XMS_ITS | Referral Summary ---
Author Organization [facility] Address [address] [place] [address] Care Team Providers Care Driving Teacher Name Role Phone Unknown, Notinfile Primary Care Provider Unavail able Unknown, Notinfile Unavailable Unavailable Encounters Date Type Department Care Team Description 10/10/2024 Telephone [facility] Obstetrical Gynecology [address] [place] [address] [address] [place] [address] Ajay Haro MD 10/10/2024 1:49 AM COLLAR STITCHER - 10/10/2024 5:45 AM COLLAR STITCHER Emergency [address] [address] Hans Vang DO Vaginal bleeding [...] on file Legal Sex Female 7:05 PM COLLAR STITCHER Gender Identity Not on file Sexual Orientation Not on file Last Filed Vital Signs Vital Sign Reading Time Taken Comments Blood Pressure 121/70 10/10/2024 5:09 AM COLLAR STITCHER Pulse 72 10/10/2024 5:09 AM COLLAR STITCHER Temperature 37 C (98.6 F) 10/09/2024 9:23 PM COLLAR STITCHER Respiratory Rate 16 10/10/2024 5:09 AM COLLAR STITCHER Oxygen Saturation 100% 10/10/2024 5:09 AM COLLAR STITCHER Inhaled Oxygen Concentration - - Weight 77.1 kg (170 lb) 10/09/2024 9:23 PM COLLAR STITCHER Height 160 cm (5' 3 ) 10/09/2024 9:23 PM COLLAR STITCHER Body Mass Index 30.11 10/09/2024 9:23 PM COLLAR STITCHER Plan of Treatment Not on file Procedures Procedure Name Priority Date/Time Associated Diagnosis Comments US OB TRANSVAGINAL ED Urgent/IP Urgent 10/10/2024 4:11 AM COLLAR STITCHER TROPONIN T HIGH-SENSITIVITY 6-HOUR Timed 10/10/2024 3:44 AM COLLAR STITCHER B ABO / RH CONFIRMATION TESTING STAT 10/10/2024 1:59 AM COLLAR STITCHER TROPONIN T HIGH-SENSITIVITY 4-HR Timed 10/10/2024 1:59 AM COLLAR STITCHER ECG 12-LEAD STAT 10/09/2024 10:25 PM COLLAR STITCHER ANTIBODY SCREEN Timed 10/09/2024 10:21 PM COLLAR STITCHER ABO/RH Timed 10/09/2024 10:21 PM COLLAR STITCHER TYPE AND SCREEN Timed 10/09/2024 10:21 PM COLLAR STITCHER POCT HCG, URINE Routine 10/09/2024 10:14 PM COLLAR STITCHER URINALYSIS, MICROSCOPIC ONLY STAT 10/09/2024 10:09 PM COLLAR STITCHER URINE CULTURE STAT 10/09/2024 10:09 PM COLLAR STITCHER URINALYSIS AND REFLEX TO MICROSCOPIC AND CULTURE STAT 10/09/2024 10:09 PM COLLAR STITCHER EGFR STAT 10/09/2024 9:43 PM COLLAR STITCHER HCG, BLOOD, QUANTITATIVE Add-On 10/09/2024 9:43 PM COLLAR STITCHER DIFFERENTIAL AUTO STAT 10/09/2024 9:4 3 PM COLLAR STITCHER TROPONIN T HIGH-SENSITIVITY SERIES (BASELINE, 2HR, 4HR, 6HR) STAT 10/09/2024 9:43 PM COLLAR STITCHER LIPASE STAT 10/09/2024 9:43 PM COLLAR STITCHER COMPREHENSIVE METABOLIC PANEL STAT 10/09/2024 9:43 PM COLLAR STITCHER CBC WITH AUTO DIFFERENTIAL STAT 10/09/2024 9:43 PM COLLAR STITCHER from Last 3 Months Results * US Ob Transvaginal (10/10/2024 4:11 AM COLLAR STITCHER) Anatomical Region Laterality Modality Abdomen N/A Ultrasound 10/10/2024 4:16 AM COLLAR STITCHER Narrative 10/10/2024 4:26 AM COLLAR STITCHER EXAM DESCRIPTION: US OB TRANSVAGINAL REASON FOR [...] Pedro Irene M.D. AR T: Report ID: [id number] Reading Location: [id number] Procedure Note Pedro Irene MD - 10/10/2024 [...] Pedro Irene M.D. AR T: Report ID: [id number] Reading Location: [id number] Hans August Vang DO IMG OB US PROCEDURES Final Result * (ABNORMAL) Troponin T high-sensitivity 6-hour (10/10/2024 3:44 AM COLLAR STITCHER) Trop T hs 21(H) <=14 ng/L Comment: Interpretive Data For further hscTnT resources including the diagnostic algorithm and an aid in interpretation, copy and paste this link: https://nrl.[employer] [facility].org/show/hsTrop Current Interpretive Data last revised 2020. Trop T hs delta -7 ng/L KADEEM Trop T hs interp Equivocal [facility] Blood 10/10/2024 3:44 AM COLLAR STITCHER 10/10/2024 3:47 AM COLLAR STITCHER Tushar Meyer MD LAB BLOOD ORDERABLES Final Result Performing Organization Address [facility] de Phone Number [address] [place] [address] * (ABNORMAL) Troponin T high-sensitivity 4-hour (10/10/2024 1:59 AM COLLAR STITCHER) Trop T hs 23(H) <=14 ng/L Comment: Interpretive Data For further hscTnT resources including the diagnostic algorithm and an aid in interpretation, copy and paste this link: https://nrl.[employer] [facility].org/show/hsTrop Current Interpretive Data last revised 2020. Trop T hs delta -5 ng/L KADEEM Trop T hs interp [employer]ocal [facility] Blood 10/10/2024 1:59 AM COLLAR STITCHER 10/10/2024 2:02 AM COLLAR STITCHER Tushar Meyer MD LAB BLOOD ORDERABLES Final Result Performing Organization Address [facility] Co de Phone Number [address] [place] [address] * ABO / Rh Confirmation Testing (10/10/2024 1:59 AM COLLAR STITCHER) ABO/Rh Confirmation A Positive [facility] Blood 10/10/2024 1:59 AM COLLAR STITCHER 10/10/2024 2:02 AM COLLAR STITCHER Jania LIU LAB BLOOD ORDERABLES Final R esult Performing Organization Address [facility]/ZIP Co de Phone Number [facility] [address] [facility] Department [place] [address] [facility] * ECG 12 lead (10/09/2024 10:25 PM COLLAR STITCHER) Ventricular Rate EKG/Min 72 BPM [facility] Atrial Rate 72 BPM [facility] SC-Interval (MSEC) 152 ms [facility] QRS-Interval (MSEC) 72 ms [facility] QT-Interval (MSEC) 362 ms [facility] QTc 396 ms [facility] P [place] 57 degrees [facility] R [place] 36 degrees [facility] T [place] 29 degrees [facility] Diagnosis Normal sinus rhythm Normal ECG Confirmed by JAX ONEIL M.D. ([id number]) on 10/10/2024 11:23:51 PM [facility] 10/09/2024 10:2 5 PM COLLAR STITCHER 10/10/2024 11:23 PM COLLAR STITCHER Hans Vang DO ECG ORDERABLES Final Resul t Performing Organization Address [facility] de Phone Number [facility] * ABO/Rh (10/09/2024 10:21 PM COLLAR STITCHER) ABO/Rh A Positive Blood 10/09/2024 10:2 1 PM COLLAR STITCHER 10/09/2024 10:25 PM COLLAR STITCHER Narrative KADEEM - 10/09/2024 11:20 PM COLLAR STITCHER Has the patient had Daratumumab or Isatuximab in the past 6 months?->Unknown Jania LIU LAB BLOOD BANK TEST ORDERABL ES Final Result Performing Organization Address [facility] Co de Phone Number [facility] [address] [place] [address] * Antibody screen (10/09/2024 10:21 PM COLLAR STITCHER) Pathologist [facility] Yehuda, indirect, Gel Interpretation Negative ABSC Blood 10/09/2024 10:2 1 PM COLLAR STITCHER 10/09/2024 10:25 PM COLLAR STITCHER Narrative [facility] - 10/09/2024 11:20 PM COLLAR STITCHER Has the patient had Daratumumab or Isatuximab in the past 6 months?->Unknown Jania LIU LAB BLOOD BANK TEST ORDERABL ES Final Result Performing Organization Address [facility] Co de Phone Number [facility] [address] [place] [address] * (ABNORMAL) POCT hCG, urine (10/09/2024 10:14 PM COLLAR STITCHER) [facility] HCG, ur, POC Positive(A) Negative Lot Number [id number] QC Backgroud Clear Acceptable QC Control Line Acceptable Urine 10/09/2024 10:1 4 PM COLLAR STITCHER Hans Vang DO POINT OF CARE TEST ORDERABL ES Final Result * (ABNORMAL) Urinalysis reflex to microscopic and culture Urine (10/09/2024 10:09 PM COLLAR STITCHER) [facility] Color, ur Red(A) Yellow Clarity, ur Turbid(A) Clear [facility] Specific gravity, ur 1.031(H) 1.003 - 1.030 [facility] pH, urine 5.5 [facility] Comment: Interpretive Data U rine pH is affected by diet, medications, systemic acid-base disturbances, and renal tubular function. pH may affect urinary stone formation. For example, urine pH below 6.0 may help reduce the tendency for calcium phosphate stones and pH greater than 6.0 may reduce the tendency for uric acid stone formation. Source: [facility] [email or web address] Current Interpretive Data was last revised on 2017 Protein, ur ql 2+(A) Negative [facility] Glucose, ur ql Negative Negative [facility] Ketones, ur Negative Negative [facility] Bilirubin, ur Negative Negative [facility] Blood, ur 3+(A) Negative [facility] Urobilinogen, ur <2.0 <2.0 mg/dL [facility] Nitrite, ur Negative Negative [facility] Leukocyte esterase, ur 2+(A) Negative [facility] UA reflex comment Reflex to microscopic UA will be performed. [facility] Urine 10/09/2024 10:0 9 PM COLLAR STITCHER 10/09/2024 10:19 PM COLLAR STITCHER Hans Koch [facility] LAB MICROBIOLOGY - GENERAL ORDERABLES Final Result Performing Organization Address City/[facility] Co de Phone Number KADEEM [address] [email or web address] [address] * (ABNORMAL) Urinalysis, microscopic only (10/09/2024 10:09 PM COLLAR STITCHER) WBC, ur 11-20(A) 0 - 5 /HPF RBC, ur >50(A) 0 - 2 /HPF [facility] Mucous, ur Present(A) [facility] Culture Reflex Comment Reflex to urine culture will be performed. [facility] Urine 10/09/2024 10:0 9 PM COLLAR STITCHER 10/09/2024 10:19 PM COLLAR STITCHER [facility]INE ORDERABLES Final Result Performing Organization Address City/[facility] Co de Phone Number [facility] [address] [place] [address] * Urine culture Urine (10/09/2024 10:09 PM COLLAR STITCHER) Report Final Report: Less than 100,000 colonies/mL (clinically insignificant growth based on current clinical standards) Comment:Testing performed by : [facility], [address] [facility], [place]., [address] Organism (CLINICALLY INSIGNIFICANT GROWTH [facility] Urine 10/09/2024 10:0 9 PM COLLAR STITCHER 10/10/2024 1:55 AM COLLAR STITCHER Narrative [facility] 10/11/2024 6:37 AM COLLAR STITCHER Urine culture reflexed based upon urinalysis results. Testing performed by [facility] Microbiology Laboratory ([phone]) Tushar Meyer MD LAB MICROBIOLOGY - GENERAL ORDERABLES Final Result Performing Organization Address [facility] Co de Phone Number [address] [address] * (ABNORMAL) Troponin T high-sensitivity series (baseline, 2hr, 4hr, 6hr) (10/09/2024 9:43 PM COLLAR STITCHER) Pathologist [facility] Trop T hs 28(H) <=14 ng/L Comment: Interpretive Data For further hscTnT resources including the diagnostic algorithm and an aid in interpretation, copy and paste this link: https://nrl.[employer]catalog.org/show/hsTrop Current Interpretive Data last revised 2020. Blood 10/09/2024 9:43 PM COLLAR STITCHER 10/09/2024 9:57 PM COLLAR STITCHER Hans Vang DO LAB BLOOD ORDERABLES Final Result Performing Organization Address [facility] Co de Phone Number [address] [address] * eGFR (10/09/2024 9:43 PM COLLAR STITCHER) [facility] eGFR >90 >=60 mL/min/1. 73 m2 [...] last reviewed 2021. Blood 10/09/2024 9:43 PM COLLAR STITCHER 10/09/2024 9:57 PM COLLAR STITCHER Hans Vang DO LAB BLOOD ORDERABLES Final Result [facility] [address] [facility] Department [place] [address] * (ABNORMAL) Differential, auto (10/09/2024 9:43 PM COLLAR STITCHER) Neutrophil abs 7.4(H) 1.5 - 6.5 K/cumm Imm gran abs 0.2(H) 0.0 - 0.1 K/cumm [facility] Lymphocyte abs 1.9 0.8 - 3.3 K/cumm [facility] Monocyte abs 1.2(H) 0.2 - 0.8 K/cumm [facility] Eosinophil abs 0.2 0.0 - 0.5 K/cumm [facility] Basophil abs 0.1 0.0 - 0.1 K/cumm [facility] Neutrophil pct 68.2 % [facility] Comment: Interpretive Data Percent cell count reference ranges are not reported, since discordance with absolute values may lead to misinterpretation of CBC data. Current Interpretive Data was last revised on 2017. Imm gran pct 1.5 % [facility] Comment: Interpretive Data Percent cell count reference ranges are not reported, since discordance with absolute values may lead to misinterpretation of CBC data. Current Interpretive Data was last revised on 2017. Lymphocyte pct 17.3 % [facility] Comment: Interpretive Data Percent cell count reference ranges are not reported, since discordance with absolute values may lead to misinterpretation of CBC data. Current Interpretive Data was last revised on 2017. Monocyte pct 11.1 % [facility] Comment: Interpretive Data Percent cell count reference ranges are not reported, since discordance with absolute values may lead to misinterpretation of CBC data. Current Interpretive Data was last revised on 2017. Eosinophil pct 1.4 % [facility] Comment: Interpretive Data Percent cell count reference ranges are not reported, since discordance with absolute values may lead to misinterpretation of CBC data. Current Interpretive Data was last revised on 2017. Basophil pct 0.5 % [facility] Comment: Interpretive Data Percent cell count reference ranges are not reported, since discordance with absolute values may lead to misinterpretation of CBC data. Current Interpretive Data was last revised on 2017. Blood 10/09/2024 9:43 PM COLLAR STITCHER 10/09/2024 9:57 PM COLLAR STITCHER Hans Vang DO LAB BLOOD ORDERABLES Final Result [facility] [address] [facility] Department [place] [address] * (ABNORMAL) CBC with auto differential (10/09/2024 9:43 PM COLLAR STITCHER) WBC 10.8(H) 3.8 - 9.9 K/cumm Hgb 11.4(L) 11.9 - 15.5 g/dL [facility] Hct 33.1(L) 35.6 - 45.5 % [facility] Plt 284 150 - 400 K/cumm [facility] MPV 9.8 9.1 - 12.3 fL [facility] RBC 3.58(L) 3.90 - 5.20 M/cumm [facility] MCV 92.5 81.3 - 96.4 fL [facility] MCH 31.8 27.1 - 33.3 pg [facility] MCHC 34.4 32.3 - 35.7 g/dL [facility] RDW CV 12.8 11.1 - 14.9 % [facility] RDW SD 43.8 35.7 - 48.1 fL [facility] NRBC abs 0.00 0.00 - 0.01 K/cumm [facility] Blood Venous blood specimen / Unknown 10/09/2024 9:43 PM COLLAR STITCHER 10/09/2024 9:57 PM COLLAR STITCHER Hans Vang LAB BLOOD ORDERABLES Final Result Performing Organization Address [facility] de Phone Number KADEEM [address] [place] [email or web address] [address] * (ABNORMAL) hCG, blood, quantitative (10/09/2024 9:43 PM COLLAR STITCHER) [facility] hCG, quant 45,621.0( H) 0.0 - 5.0 IUnits/L Comment: Interpretive Data Male: < 5 IU/L Non- premenopausal Female: <5 IU/L [employer] hCG Beta Quant assay procedure was used. Results from different manufacturers or methods may not be comparable. Serial testing should be performed using the same method. Interpretive Data was last revised on 2023 Blood 10/09/2024 9:43 PM COLLAR STITCHER 10/09/2024 10:20 PM COLLAR STITCHER Jania Singleton MA LAB BLOOD ORDERABLES Final R esult Performing Organization Address [facility] Co de Phone Number [address] [email or web address] [address] * Lipase (10/09/2024 9:43 PM COLLAR STITCHER) [facility] Lipase 28 10 - 99 Units/L Blood Venous blood specimen / Unknown 10/09/2024 9:43 PM COLLAR STITCHER 10/09/2024 9:57 PM COLLAR STITCHER Hans Vang LAB BLOOD ORDERABLES Final Result Performing Organization Address [facility] Co de Phone Number [address]ARC[address] [place] [email or web address] [address] * (ABNORMAL) Comprehensive metabolic panel (10/09/2024 9:43 PM COLLAR STITCHER) [facility] Sodium 131(L) 135 - 145 mmol/L Potassium, pl 3.4 3.3 - 4.9 mmol/L [facility] Chloride 99 97 - 110 mmol/L [facility] CO2 22 22 - 32 mmol/L [facility] Anion gap 10 2 - 15 mmol/L [facility] BUN 9 6 - 25 mg/dL [facility] Creatinine 0.73 0.60 - 1.10 mg/dL [facility] Glucose 107 70 - 199 mg/dL [facility] Comment: Interpretive Data Fasting glucose >/= [...] 2022. Calcium 8.9 8.5 - 10.3 mg/dL [facility] Bilirubin, total 0.5 0.1 - 1.2 mg/dL [facility] Protein, pl 7.3 6.5 - 8.5 g/dL [facility] Albumin 3.8 3.5 - 5.0 g/dL [facility] Alk phos 62 40 - 130 Units/L [facility] ALT 17 7 - 45 Units/L [facility] AST 32 10 - 45 Units/L [facility] Blood 10/09/2024 9:43 PM COLLAR STITCHER 10/09/2024 9:57 PM COLLAR STITCHER Hans Vang DO LAB BLOOD ORDERABLES Final Result Performing Organization Address City/State/[facility] Co de Phone Number [facility] [address] [facility] Department [place] [address] from Last 3 Months Insurance [facility] ID[employer] Address: [facility] [address] [place] [address] Care Teams Driving Teacher Relationship Specialty Start Date End Date Unknown, Notinfile PCP - General 04/15/22 Unknown, Notinfile 04/15/22
[2025-01-02 10:39] VITALS: BP 151/100; PULSE 64; RESP 18; TEMP 36.9; O2SAT 100
--- OUTSIDE RECORDS SUMMARY | 2025-01-02 11:01 | XMS_ITS | Encounter Summary ---
Author Organization [facility] Address [facility] [place] [address] Care Team Providers Care Second Time Worker Name Role Phone Keith Jain MD Primary Care Provider [phone] Rut Gandara MD Primary Care Provider [phone] Encounter Details Date Type Department Care Team (Late st Contact Info) Description 05/29/2018 Hospital Follow-up Call [facility] [place] [address] Kerline Berg RN Social History Tobacco Use [...] on filedocumented in this encounter Care Teams Second Time Worker Relationship Specialty Start Date End Date Keith Jain MD PCP - General 06/01/14 06/04/24 Rut Gandara MD 3 [facility], [address] [address] PCP - General FAMILY PRACTICE 06/05/24 documented as of this encounter
--- OUTSIDE RECORDS SUMMARY | 2025-01-02 11:01 | XMS_ITS | Clinical Summary ---
Author Organization [facility] Address [address] [place] [address] Care Team Providers Care Hansard Reporter Name Role Phone Dyana Swan Primary Care Provider [phone] Source Comments [facility],non-[facility]iliates and Associated Physician Practices is amultiple site organization consisting of ambulatory clinics and hospital sitesin [place], [place], [place] and [place]. This disclosure is being madepursuant to the Care Everywhere program and may not contain all information available regarding this patient. Last updated 18.[facility] Social History Tobacco Use Types Packs/Day Years Used Date Smoking Tobacco: Never Assessed Comments No Sex and Gender Information Value Date Recorded Sex Assigned at Not on file Legal Sex Female 5:40 AM ORACLE CONSULTANT Gender Identity Not on file Sexual [...] patient's age to complete this topic Insurance [facility] Care Teams Hansard Reporter Relationship Specialty Start Date End Date Dyana Swan PA [address] [place] [address] [place] [address] PCP - General 01/22/18
--- OUTSIDE RECORDS SUMMARY | 2025-01-02 11:01 | XMS_ITS | Clinical Summary ---
Author Organization [facility] Address [address] [place] [address] Care Team Providers Care Line Maintainer Section Name Role Phone Unknown, Notinfile Primary Care [...] Department Care Team Description 10/10/2024 1:49 AM IMPROVEMENT ADVISOR - 10/10/2024 5:45 AM IMPROVEMENT ADVISOR Emergency [facility] [address] [place] [address] Hans Vang, Vaginal bleeding affecting early (Primary Dx) Discharge Disposition: Discharge to home or self care 10/10/2024 Telephone [facility] Obstetrical Gynecology [facility] [address] [place] [phone] Ajay Haro MD from Last 3 [...] on file Legal Sex Female 7:05 PM IMPROVEMENT ADVISOR Gender Identity Not on file Sexual Orientation Not on file Obstetrics History Last Filed Vital Signs Vital Sign Reading Time Taken Comments Blood Pressure 121/70 10/10/2024 5:09 AM IMPROVEMENT ADVISOR Pulse 72 10/10/2024 5:09 AM IMPROVEMENT ADVISOR Temperature 37 C (98.6 F) 10/09/2024 9:23 PM IMPROVEMENT ADVISOR Respiratory Rate 16 10/10/2024 5:09 AM IMPROVEMENT ADVISOR Oxygen Saturation 100% 10/10/2024 5:09 AM IMPROVEMENT ADVISOR Inhaled Oxygen Concentration - - Weight 77.1 kg (170 lb) 10/09/2024 9:23 PM IMPROVEMENT ADVISOR Height 160 cm (5' 3 ) 10/09/2024 9:23 PM IMPROVEMENT ADVISOR Body Mass Index 30.11 10/09/2024 9:23 PM IMPROVEMENT ADVISOR Plan of Treatment Health Maintenance Due Date [...] TRANSVAGINAL ED Urgent/IP Urgent 10/10/2024 4:11 AM IMPROVEMENT ADVISOR TROPONIN T HIGH-SENSITIVITY 6-HOUR Timed 10/10/2024 3:44 AM IMPROVEMENT ADVISOR B ABO / RH CONFIRMATION TESTING STAT 10/10/2024 1:59 AM IMPROVEMENT ADVISOR TROPONIN T HIGH-SENSITIVITY 4-HR Timed 10/10/2024 1:59 AM IMPROVEMENT ADVISOR ECG 12-LEAD STAT 10/09/2024 10:25 PM IMPROVEMENT ADVISOR ANTIBODY SCREEN Timed 10/09/2024 10:21 PM IMPROVEMENT ADVISOR ABO/RH Timed 10/09/2024 10:21 PM IMPROVEMENT ADVISOR TYPE AND SCREEN Timed 10/09/2024 10:21 PM IMPROVEMENT ADVISOR POCT HCG, URINE Routine 10/09/2024 10:14 PM IMPROVEMENT ADVISOR URINALYSIS, MICROSCOPIC ONLY STAT 10/09/2024 10:09 PM IMPROVEMENT ADVISOR URINE CULTURE STAT 10/09/2024 10:09 PM IMPROVEMENT ADVISOR URINALYSIS AND REFLEX TO MICROSCOPIC AND CULTURE STAT 10/09/2024 10:09 PM IMPROVEMENT ADVISOR EGFR STAT 10/09/2024 9:43 PM IMPROVEMENT ADVISOR HCG, BLOOD, QUANTITATIVE Add-On 10/09/2024 9:43 PM IMPROVEMENT ADVISOR DIFFERENTIAL AUTO STAT 10/09/2024 9:4 3 PM IMPROVEMENT ADVISOR TROPONIN T HIGH-SENSITIVITY SERIES (BASELINE, 2HR, 4HR, 6HR) STAT 10/09/2024 9:43 PM IMPROVEMENT ADVISOR LIPASE STAT 10/09/2024 9:43 PM IMPROVEMENT ADVISOR COMPREHENSIVE METABOLIC PANEL STAT 10/09/2024 9:43 PM IMPROVEMENT ADVISOR CBC WITH AUTO DIFFERENTIAL STAT 10/09/2024 9:43 PM IMPROVEMENT ADVISOR from Last 3 Months Results * US Ob Transvaginal (10/10/2024 4:11 AM IMPROVEMENT ADVISOR) Anatomical Region Laterality Modality Abdomen N/A Ultrasound 10/10/2024 4:16 AM IMPROVEMENT ADVISOR Narrative 10/10/2024 4:26 AM IMPROVEMENT ADVISOR EXAM DESCRIPTION: US OB TRANSVAGINAL REASON FOR [...] Pedro Irene M.D. AR T: Report ID: [id number] Reading Location: [id number] Procedure Note Pedro Irene MD - 10/10/2024 [...] Pedro Irene M.D. AR T: Report ID: [id number] Reading Location: [place] [address] Hans Vang DO IMG OB US PROCEDURES Final Result * (ABNORMAL) Troponin T high-sensitivity 6-hour (10/10/2024 3:44 AM IMPROVEMENT ADVISOR) Trop T hs 21(H) <=14 ng/L Comment: Interpretive Data For further hscTnT resources including the diagnostic algorithm and an aid in interpretation, copy and paste this link: https://nrl.testcatalog.org/show/hsTrop Current Interpretive Data last revised 2020. Trop T hs delta -7 ng/L KADEEM SANCHEZ Trop T hs interp Equivocal KADEEM SANCHEZ Blood 10/10/2024 3:44 AM IMPROVEMENT ADVISOR 10/10/2024 3:47 AM IMPROVEMENT ADVISOR Tushar Meyer MD LAB BLOOD ORDERABLES Final Result KADEEM SANCHEZ [address] [facility] Department of Laboratories [place], [place] [id number] * (ABNORMAL) Troponin T high-sensitivity 4-hour (10/10/2024 1:59 AM IMPROVEMENT ADVISOR) Pathologist [facility] Trop T hs 23(H) <=14 ng/L Comment: Interpretive Data For further hscTnT resources including the diagnostic algorithm and an aid in interpretation, copy and paste this link: https://nrl.testcatalog.org/show/hsTrop Current Interpretive Data last revised 2020. Trop T hs delta -5 ng/L [facility] Trop T hs interp Equivocal [facility] Blood 10/10/2024 1:59 AM IMPROVEMENT ADVISOR 10/10/2024 2:02 AM IMPROVEMENT ADVISOR Tushar Meyer MD LAB BLOOD ORDERABLES Final Result Performing Organization Address [facility] Co de Phone Number [address] [place] [address] * ABO / Rh Confirmation Testing (10/10/2024 1:59 AM IMPROVEMENT ADVISOR) [facility] ABO/Rh Confirmation A Positive [facility] Blood 10/10/2024 1:59 AM IMPROVEMENT ADVISOR 10/10/2024 2:02 AM IMPROVEMENT ADVISOR Jania LIU LAB BLOOD ORDERABLES Final R esult Performing Organization Address [facility] Co de Phone Number [address] [place] [address] [facility] * ECG 12 lead (10/09/2024 10:25 PM IMPROVEMENT ADVISOR) [facility] Ventricular Rate EKG/Min 72 BPM [facility] Atrial Rate 72 BPM [facility] [place]-Interval (MSEC) 152 ms [facility] QRS-Interval (MSEC) 72 ms [facility] QT-Interval (MSEC) 362 ms [facility] QTc 396 ms [facility] P [place] 57 degrees [facility] R Dulzura 36 degrees [facility] T [place] 29 degrees [facility] Diagnosis Normal sinus rhythm Normal ECG Confirmed by JAX ONEIL M.D. ([id number]) on 10/10/2024 11:23:51 PM [facility] 10/09/2024 10:2 5 PM IMPROVEMENT ADVISOR 10/10/2024 11:23 PM IMPROVEMENT ADVISOR Result [facility] Hans Vang DO ECG ORDERABLES Final Resul t Performing Organization Address [facility] Co de Phone Number [facility] * ABO/Rh (10/09/2024 10:21 PM IMPROVEMENT ADVISOR) ABO/Rh A Positive Blood 10/09/2024 10:2 1 PM IMPROVEMENT ADVISOR 10/09/2024 10:25 PM IMPROVEMENT ADVISOR Narrative [facility] - 10/09/2024 11:20 PM IMPROVEMENT ADVISOR Has the patient had Daratumumab or Isatuximab in the past 6 months?->Unknown Result [facility] Jania LIU LAB BLOOD BANK TEST ORDERABL ES Final Result Performing Organization Address [facility] de Phone Number [address] [place] [address] * Antibody screen (10/09/2024 10:21 PM IMPROVEMENT ADVISOR) Yehuda, indirect, Gel Interpretation Negative ABSC Blood 10/09/2024 10:2 1 PM IMPROVEMENT ADVISOR 10/09/2024 10:25 PM IMPROVEMENT ADVISOR Narrative [facility] 10/09/2024 11:20 PM IMPROVEMENT ADVISOR Has the patient had Daratumumab or Isatuximab in the past 6 months?->Unknown Result [facility] Jania LIU LAB BLOOD BANK TEST ORDERABL ES Final Result Performing Organization Address [facility] de Phone Number [address] [place] [address] * (ABNORMAL) POCT hCG, urine (10/09/2024 10:14 PM IMPROVEMENT ADVISOR) HCG, ur, POC Positive(A) Negative Lot Number [id number] QC Backgroud Clear Acceptable QC Control Line Acceptable Urine 10/09/2024 10:1 4 PM IMPROVEMENT ADVISOR Hans Vang DO POINT OF CARE TEST ORDERABL ES Final Result * (ABNORMAL) Urinalysis reflex to microscopic and culture Urine (10/09/2024 10:09 PM IMPROVEMENT ADVISOR) Color, ur Red(A) Yellow Clarity, ur Turbid(A) Clear [facility] Specific gravity, ur 1.031(H) 1.003 - 1.030 [facility] pH, urine 5.5 [facility] Comment: Interpretive Data U rine pH is affected by diet, medications, systemic acid-base disturbances, and renal tubular function. pH may affect urinary stone formation. For example, urine pH below 6.0 may help reduce the tendency for calcium phosphate stones and pH greater than 6.0 may reduce the tendency for uric acid stone formation. Source: [facility] Current Interpretive Data was last revised on 2017 Protein, ur ql 2+(A) Negative [facility] Glucose, ur ql Negative Negative [facility] Ketones, ur Negative Negative [facility] Bilirubin, ur Negative Negative [facility] Blood, ur 3+(A) Negative [facility] Urobilinogen, ur <2.0 <2.0 mg/dL [facility] Nitrite, ur Negative Negative [facility] Leukocyte esterase, ur 2+(A) Negative [facility] UA reflex comment Reflex to microscopic UA will be performed. [facility] Urine 10/09/2024 10:0 9 PM IMPROVEMENT ADVISOR 10/09/2024 10:19 PM IMPROVEMENT ADVISOR Hans Vang DO LAB MICROBIOLOGY - GENERAL ORDERABLES Final Result KADEEM [address] [facility] Department [place] [address] * (ABNORMAL) Urinalysis, microscopic only (10/09/2024 10:09 PM IMPROVEMENT ADVISOR) WBC, ur 11-20(A) 0 - 5 /HPF RBC, ur >50(A) 0 - 2 /HPF [facility] Mucous, ur Present(A) [facility] Culture Reflex Comment Reflex to urine culture will be performed. [facility] Urine 10/09/2024 10:0 9 PM IMPROVEMENT ADVISOR 10/09/2024 10:19 PM IMPROVEMENT ADVISOR Hans Vang DO LAB URINE ORDERABLES Final Result Performing Organization Address [facility] de Phone Number [address] [address] * Urine culture Urine (10/09/2024 10:09 PM IMPROVEMENT ADVISOR) Report Final Report: Less than 100,000 colonies/mL (clinically insignificant growth based on current clinical standards) Comment:Testing performed by : [facility], [address] [place] [address] Organism (CLINICALLY INSIGNIFICANT GROWTH [facility] Urine 10/09/2024 10:0 9 PM IMPROVEMENT ADVISOR 10/10/2024 1:55 AM IMPROVEMENT ADVISOR Narrative [facility] - 10/11/2024 6:37 AM IMPROVEMENT ADVISOR Urine culture reflexed based upon urinalysis results. Testing performed by [facility] ([phone]) Tushar Meyer MD LAB MICROBIOLOGY - GENERAL ORDERABLES Final Result Performing Organization Address [facility] de Phone Number [address] [address] * (ABNORMAL) Troponin T high-sensitivity series (baseline, 2hr, 4hr, 6hr) (10/09/2024 9:43 PM IMPROVEMENT ADVISOR) Trop T hs 28(H) <=14 ng/L Comment: Interpretive Data For further hscTnT resources including the diagnostic algorithm and an aid in interpretation, copy and paste this link: https://nrl.testcatalog.org/show/hsTrop Current Interpretive Data last revised 2020. Blood 10/09/2024 9:43 PM IMPROVEMENT ADVISOR 10/09/2024 9:57 PM IMPROVEMENT ADVISOR Hans Vang DO LAB BLOOD ORDERABLES Final Result Performing Organization Address [facility] Co de Phone Number KADEEM [address] Department [place] [address] * eGFR (10/09/2024 9:43 PM IMPROVEMENT ADVISOR) [facility] eGFR >90 >=60 mL/min/1. 73 m2 [...] last reviewed 2021. Blood 10/09/2024 9:43 PM IMPROVEMENT ADVISOR 10/09/2024 9:57 PM IMPROVEMENT ADVISOR Hans Vang DO LAB BLOOD ORDERABLES Final Result Performing Organization Address [facility] Co de Phone Number KADEEM [address] Department [place] [address] * (ABNORMAL) Differential, auto (10/09/2024 9:43 PM IMPROVEMENT ADVISOR) [facility] Neutrophil abs 7.4(H) 1.5 - 6.5 K/cumm Imm gran abs 0.2(H) 0.0 - 0.1 K/cumm [facility] Lymphocyte abs 1.9 0.8 - 3.3 K/cumm [facility] Monocyte abs 1.2(H) 0.2 - 0.8 K/cumm [facility] Eosinophil abs 0.2 0.0 - 0.5 K/cumm [facility] Basophil abs 0.1 0.0 - 0.1 K/cumm [facility] Neutrophil pct 68.2 % [facility] Comment: Interpretive Data Percent cell count reference ranges are not reported, since discordance with absolute values may lead to misinterpretation of CBC data. Current Interpretive Data was last revised on 2017. Imm gran pct 1.5 % [facility] Comment: Interpretive Data Percent cell count reference ranges are not reported, since discordance with absolute values may lead to misinterpretation of CBC data. Current Interpretive Data was last revised on 2017. Lymphocyte pct 17.3 % [facility] Comment: Interpretive Data Percent cell count reference ranges are not reported, since discordance with absolute values may lead to misinterpretation of CBC data. Current Interpretive Data was last revised on 2017. Monocyte pct 11.1 % [facility] Comment: Interpretive Data Percent cell count reference ranges are not reported, since discordance with absolute values may lead to misinterpretation of CBC data. Current Interpretive Data was last revised on 2017. Eosinophil pct 1.4 % [facility] Comment: Interpretive Data Percent cell count reference ranges are not reported, since discordance with absolute values may lead to misinterpretation of CBC data. Current Interpretive Data was last revised on 2017. Basophil pct 0.5 % [facility] Comment: Interpretive Data Percent cell count reference ranges are not reported, since discordance with absolute values may lead to misinterpretation of CBC data. Current Interpretive Data was last revised on 2017. Blood 10/09/2024 9:43 PM IMPROVEMENT ADVISOR 10/09/2024 9:57 PM IMPROVEMENT ADVISOR Hans Vang DO LAB BLOOD ORDERABLES Final Result [facility] [place] [address] [facility] Department [place] [address] * (ABNORMAL) CBC with auto differential (10/09/2024 9:43 PM IMPROVEMENT ADVISOR) WBC 10.8(H) 3.8 - 9.9 K/cumm Hgb 11.4(L) 11.9 - 15.5 g/dL [facility] Hct 33.1(L) 35.6 - 45.5 % [facility] Plt 284 150 - 400 K/cumm [facility] MPV 9.8 9.1 - 12.3 fL [facility] RBC 3.58(L) 3.90 - 5.20 M/cumm [facility] MCV 92.5 81.3 - 96.4 fL [facility] MCH 31.8 27.1 - 33.3 pg [facility] MCHC 34.4 32.3 - 35.7 g/dL [facility] RDW CV 12.8 11.1 - 14.9 % [facility] RDW SD 43.8 35.7 - 48.1 fL [facility] NRBC abs 0.00 0.00 - 0.01 K/cumm [facility] Blood Venous blood specimen / Unknown 10/09/2024 9:43 PM IMPROVEMENT ADVISOR 10/09/2024 9:57 PM IMPROVEMENT ADVISOR Hans Vang DO LAB BLOOD ORDERABLES Final Result Performing Organization Address [facility] de Phone Number [address] [email or web address] [address] * (ABNORMAL) hCG, blood, quantitative (10/09/2024 9:43 PM IMPROVEMENT ADVISOR) [facility] hCG, quant 45,621.0( H) 0.0 - 5.0 IUnits/L Comment: Interpretive Data Male: < 5 IU/L Non- premenopausal Female: <5 IU/L [employer] hCG Beta Quant assay procedure was used. Results from different manufacturers or methods may not be comparable. Serial testing should be performed using the same method. Interpretive Data was last revised on 2023 Blood 10/09/2024 9:43 PM IMPROVEMENT ADVISOR 10/09/2024 10:20 PM IMPROVEMENT ADVISOR Jania LIU LAB BLOOD ORDERABLES Final R esult Performing Organization Address [facility] Co de Phone Number [address] [place] [address] * Lipase (10/09/2024 9:43 PM IMPROVEMENT ADVISOR) Lipase 28 10 - 99 Units/L Blood Venous blood specimen / Unknown 10/09/2024 9:43 PM IMPROVEMENT ADVISOR 10/09/2024 9:57 PM IMPROVEMENT ADVISOR Hans Vang DO LAB BLOOD ORDERABLES Final Result [facility] [address] [facility] Department [place] [address] * (ABNORMAL) Comprehensive metabolic panel (10/09/2024 9:43 PM IMPROVEMENT ADVISOR) Sodium 131(L) 135 - 145 mmol/L Potassium, pl 3.4 3.3 - 4.9 mmol/L [facility] Chloride 99 97 - 110 mmol/L [facility] CO2 22 22 - 32 mmol/L [facility] Anion gap 10 2 - 15 mmol/L [facility] BUN 9 6 - 25 mg/dL [facility] Creatinine 0.73 0.60 - 1.10 mg/dL [facility] Glucose 107 70 - 199 mg/dL [facility] Comment: Interpretive Data Fasting glucose >/= 126 [...] 2022. Calcium 8.9 8.5 - 10.3 mg/dL [facility] Bilirubin, total 0.5 0.1 - 1.2 mg/dL [facility] Protein, pl 7.3 6.5 - 8.5 g/dL [facility] Albumin 3.8 3.5 - 5.0 g/dL [facility] Alk phos 62 40 - 130 Units/L [facility] ALT 17 7 - 45 Units/L [facility] AST 32 10 - 45 Units/L [facility] Blood 10/09/2024 9:43 PM IMPROVEMENT ADVISOR 10/09/2024 9:57 PM IMPROVEMENT ADVISOR Hans Vang DO LAB BLOOD ORDERABLES Final Result KADEEM SANCHEZ [address] [facility] Department [place] [address] from Last 3 Months Insurance [facility] [employer] [facility] [employer] Address: [facility] [id number] [place] [id number] Care Teams Line Maintainer Section Relationship Specialty Start Date End Date Unknown, Notinfile PCP - General 04/15/22 Unknown, Notinfile 04/15/22
--- OUTSIDE RECORDS SUMMARY | 2025-01-02 11:01 | XMS_ITS | Continuity of Care Document ---
Author Organization [facility] Address [address] [place] [address] Phone Care Team Providers Care Academic Affairs Specialist Name Role Phone Unavailable Unavailable Unavailable Allergies, Adverse Reactions, Alerts Substance Reaction Status Criticality No Known Allergies Active No Inform ation Procedures Procedure Date X-RAY EXAM CHEST 2 VIEWS OFFICE/OUTPATIENT VISIT, EST Advance Directives Directive Yes / No Effective Date File Name No Information Encounters Encounter Description Practice Location Reason(s) For Visit Diagnoses Date Provider Providers Copied on Encounter [facility] , [address], [place], [place], [id number], tel:[phone] [facility] No Information No Information OFFICE/OUTPAT IENT VISIT, EST [facility] , [address], [place], [place], [id number], tel:[phone] [facility] PPD result (chief complaint) Body mass index [...] Order: Lab Order QuantiFE ELKE(R)-TB Gold Plus ([id number]), Scheduled for: Ordered Nutrition Recommendation Nutrition therap y completed History Of Present Illness Encounter Date Complaint History Of Prese nt Illness PPD result pt here for posi tive PPD1st PPD placed - did not return for rphd7dt PPD placed and 0 mm3rd PPD placed [...]
--- OUTSIDE RECORDS SUMMARY | 2025-01-02 11:01 | XMS_ITS | Clinical Summary ---
Author Organization [facility] Address [facility] [place] [address] Care Team Providers Care Steeping Press Tender Name Role Phone Rut Gandara MD Primary Care Provider [phone] Allergies No known active allergies Medications vitamin, [...] Noted Date Diagnosed Date (spontaneous vaginal delivery) ([facility]) Normal labor ([facility]) 05/15/2018 Immunizations Immunization Administration Dates Next Due [...] patient's age to complete this topic Insurance [place] [employer]ICA[employer] Advance Directives * Full Code (Latest Code Status on File) Date Activated Date Inactivated Comments 05/15/2018 12:50 PM 05/15/2018 10:45 PM Care Teams Steeping Press Tender Relationship Specialty Start Date End Date Rut Gandara MD 3 [facility], [address] [address] PCP - General FAMILY PRACTICE 06/05/24
--- OUTSIDE RECORDS SUMMARY | 2025-01-02 11:01 | XMS_ITS | Referral Summary ---
Author Organization [facility] Address [address] [place] [id number] Care Team Providers Care Toe Former Name Role Phone Unknown, Notinfile Primary Care Provider Unavail able Unknown, Notinfile Unavailable Unavailable Encounters Date Type Department Care Team Description 10/10/2024 Telephone [facility] Obstetrical Gynecology [address] [place] [address] [address] [place] [address] Ajay Haro MD 10/10/2024 1:49 AM [employer] - 10/10/2024 5:45 AM [employer] Emergency [address] [address] Hans Vang DO Vaginal bleeding [...] on file Legal Sex Female 7:05 PM [employer] Gender Identity Not on file Sexual Orientation Not on file Last Filed Vital Signs Vital Sign Reading Time Taken Comments Blood Pressure 121/70 10/10/2024 5:09 AM [employer] Pulse 72 10/10/2024 5:09 AM [employer] Temperature 37 C (98.6 F) 10/09/2024 9:23 PM [employer] Respiratory Rate 16 10/10/2024 5:09 AM [employer] Oxygen Saturation 100% 10/10/2024 5:09 AM [employer] O[employer] Inhaled Oxygen Concentration - - Weight 77.1 kg (170 lb) 10/09/2024 9:23 PM [employer] Height 160 cm (5' 3 ) 10/09/2024 9:23 PM [employer] Body Mass Index 30.11 10/09/2024 9:23 PM [employer] Plan of Treatment Not on file Procedures Procedure Name Priority Date/Time Associated Diagnosis Comments US OB TRANSVAGINAL ED Urgent/IP Urgent 10/10/2024 4:11 AM [employer] TROPONIN T HIGH-SENSITIVITY 6-HOUR Timed 10/10/2024 3:44 AM [employer] B ABO / RH CONFIRMATION TESTING STAT 10/10/2024 1:59 AM [employer] TROPONIN T HIGH-SENSITIVITY 4-HR Timed 10/10/2024 1:59 AM [employer] O[employer] ECG 12-LEAD STAT 10/09/2024 10:25 PM [employer] ANTIBODY SCREEN Timed 10/09/2024 10:21 PM [employer] ABO/RH Timed 10/09/2024 10:21 PM [employer] O[employer] TYPE AND SCREEN Timed 10/09/2024 10:21 PM [employer] O[employer] POCT HCG, URINE Routine 10/09/2024 10:14 PM [employer] URINALYSIS, MICROSCOPIC ONLY STAT 10/09/2024 10:09 PM [employer] URINE CULTURE STAT 10/09/2024 10:09 PM [employer] O[employer] URINALYSIS AND REFLEX TO MICROSCOPIC AND CULTURE STAT 10/09/2024 10:09 PM [employer] O[employer]ATOR EGFR STAT 10/09/2024 9:43 PM [employer] O[employer]ATOR HCG, BLOOD, QUANTITATIVE Add-On 10/09/2024 9:43 PM [employer] DIFFERENTIAL AUTO STAT 10/09/2024 9:4 3 PM [employer] TROPONIN T HIGH-SENSITIVITY SERIES (BASELINE, 2HR, 4HR, 6HR) STAT 10/09/2024 9:43 PM [employer] O[employer]ATOR LIPASE STAT 10/09/2024 9:43 PM [employer] OPERATOR COMPREHENSIVE METABOLIC PANEL STAT 10/09/2024 9:43 PM [employer] OPER[employer] CBC WITH AUTO DIFFERENTIAL STAT 10/09/2024 9:43 PM [employer] O[employer] from Last 3 Months Results * US Ob Transvaginal (10/10/2024 4:11 AM [employer]) Anatomical Region Laterality Modality Abdomen N/A Ultrasound 10/10/2024 4:16 AM [employer] OPERATOR Narrative 10/10/2024 4:26 AM [employer] OPERATOR EXAM DESCRIPTION: US OB TRANSVAGINAL REASON FOR [...] Pedro Irene M.D. AR T: Report ID: [id number] Reading Location: [id number] Procedure Note Pedro Irene MD - 10/10/2024 [...] Pedro Irene M.D. AR T: Report ID: [id number] Reading Location: [id number] Hans August Vang DO IMG OB US PROCEDURES Final Result * (ABNORMAL) Troponin T high-sensitivity 6-hour (10/10/2024 3:44 AM [employer]) Trop T hs 21(H) <=14 ng/L Comment: Interpretive Data For further hscTnT resources including the diagnostic algorithm and an aid in interpretation, copy and paste this link: https://nrl.[employer] (T/A).org/show/hsTrop Current Interpretive Data last revised 2020. Trop T hs delta -7 ng/L KADEEM Trop T hs interp Equivocal [facility] Blood 10/10/2024 3:44 AM [employer] OPERATOR 10/10/2024 3:47 AM [employer]PERATOR Tushar Meyer MD LAB BLOOD ORDERABLES Final Result Performing Organization Address [facility] de Phone Number [address] [place] [address] * (ABNORMAL) Troponin T high-sensitivity 4-hour (10/10/2024 1:59 AM [employer]) Trop T hs 23(H) <=14 ng/L Comment: Interpretive Data For further hscTnT resources including the diagnostic algorithm and an aid in interpretation, copy and paste this link: https://nrl.[employer] (T/A).org/show/hsTrop Current Interpretive Data last revised 2020. Trop T hs delta -5 ng/L KADEEM Trop T hs interp Equ[employer]ocal [facility] Blood 10/10/2024 1:59 AM [employer]PERATOR 10/10/2024 2:02 AM [employer] OPERATOR Tushar Meyer MD LAB BLOOD ORDERABLES Final Result Performing Organization Address [facility] Co de Phone Number [address] [place] [address] * ABO / Rh Confirmation Testing (10/10/2024 1:59 AM [employer] OPERATOR) ABO/Rh Confirmation A Positive [facility] Blood 10/10/2024 1:59 AM [employer] OPERATOR 10/10/2024 2:02 AM [employer] OPERATOR Jania LIU LAB BLOOD ORDERABLES Final R esult Performing Organization Address [facility]/ZIP Co de Phone Number [facility] [address] [facility] Department [place] [address] [facility] * ECG 12 lead (10/09/2024 10:25 PM [employer]) Ventricular Rate EKG/Min 72 BPM [facility] Atrial Rate 72 BPM [facility] GA-Interval (MSEC) 152 ms [facility] QRS-Interval (MSEC) 72 ms [facility] QT-Interval (MSEC) 362 ms [facility] QTc 396 ms [facility] P [place] 57 degrees [facility] R [place] 36 degrees [facility] T [place] 29 degrees [facility] Diagnosis Normal sinus rhythm Normal ECG Confirmed by JAX ONEIL M.D. ([id number]) on 10/10/2024 11:23:51 PM [facility] 10/09/2024 10:2 5 PM [employer] OPER[employer] 10/10/2024 11:23 PM [employer] OPERATOR Hans Vang DO ECG ORDERABLES Final Resul t Performing Organization Address [facility] de Phone Number [facility] * ABO/Rh (10/09/2024 10:21 PM [employer]PER[employer]) ABO/Rh A Positive Blood 10/09/2024 10:2 1 PM [employer] 10/09/2024 10:25 PM [employer] OPERATOR Narrative KADEEM - 10/09/2024 11:20 PM [employer] OPERATOR Has the patient had Daratumumab or Isatuximab in the past 6 months?->Unknown Jania LIU LAB BLOOD BANK TEST ORDERABL ES Final Result Performing Organization Address [facility] Co de Phone Number [facility] [address] [place] [address] * Antibody screen (10/09/2024 10:21 PM [employer]) Pathologist [facility] Yehuda, indirect, Gel Interpretation Negative ABSC Blood 10/09/2024 10:2 1 PM [employer] 10/09/2024 10:25 PM [employer] OPERATOR Narrative [facility] - 10/09/2024 11:20 PM [employer] OPERATOR Has the patient had Daratumumab or Isatuximab in the past 6 months?->Unknown Jania LIU LAB BLOOD BANK TEST ORDERABL ES Final Result Performing Organization Address [facility] Co de Phone Number [facility] [address] [place] [address] * (ABNORMAL) POCT hCG, urine (10/09/2024 10:14 PM [employer]) [facility] HCG, ur, POC Positive(A) Negative Lot Number [id number] QC Backgroud Clear Acceptable QC Control Line Acceptable Urine 10/09/2024 10:1 4 PM [employer] Hans Vang DO POINT OF CARE TEST ORDERABL ES Final Result * (ABNORMAL) Urinalysis reflex to microscopic and culture Urine (10/09/2024 10:09 PM [employer] OPERATOR) [facility] Color, ur Red(A) Yellow Clarity, ur Turbid(A) Clear [facility] Specific gravity, ur 1.031(H) 1.003 - 1.030 [facility] pH, urine 5.5 [facility] Comment: Interpretive Data U rine pH is affected by diet, medications, systemic acid-base disturbances, and renal tubular function. pH may affect urinary stone formation. For example, urine pH below 6.0 may help reduce the tendency for calcium phosphate stones and pH greater than 6.0 may reduce the tendency for uric acid stone formation. Source: [facility] [employer] Current Interpretive Data was last revised on 2017 Protein, ur ql 2+(A) Negative [facility] Glucose, ur ql Negative Negative [facility] Ketones, ur Negative Negative [facility] Bilirubin, ur Negative Negative [facility] Blood, ur 3+(A) Negative [facility] Urobilinogen, ur <2.0 <2.0 mg/dL [facility] Nitrite, ur Negative Negative [facility] Leukocyte esterase, ur 2+(A) Negative [facility] UA reflex comment Reflex to microscopic UA will be performed. [facility] Urine 10/09/2024 10:0 9 PM [employer] OPERATOR 10/09/2024 10:19 PM [employer] OPERATOR Hans Koch [facility] LAB MICROBIOLOGY - GENERAL ORDERABLES Final Result Performing Organization Address [facility] Co de Phone Number KADEEM [address] [place] [address] * (ABNORMAL) Urinalysis, microscopic only (10/09/2024 10:09 PM [employer] OPERATOR) WBC, ur 11-20(A) 0 - 5 /HPF RBC, ur >50(A) 0 - 2 /HPF [facility] Mucous, ur Present(A) [facility] Culture Reflex Comment Reflex to urine culture will be performed. [facility] Urine 10/09/2024 10:0 9 PM [employer] OPERATOR 10/09/2024 10:19 PM [employer] OPERATOR [facility] URINE ORDERABLES Final Result Performing Organization Address [facility] Co de Phone Number [facility] [address] [place] [address] * Urine culture Urine (10/09/2024 10:09 PM [employer] OPERATOR) Report Final Report: Less than 100,000 colonies/mL (clinically insignificant growth based on current clinical standards) Comment:Testing performed by : [facility], [address] [facility], [place]., [address] Organism (CLINICALLY INSIGNIFICANT GROWTH [facility] Urine 10/09/2024 10:0 9 PM [employer] OPERATOR 10/10/2024 1:55 AM [employer] OPERATOR Narrative [facility] 10/11/2024 6:37 AM [employer] OPERATOR Urine culture reflexed based upon urinalysis results. Testing performed by [facility] Microbiology Laboratory ([phone]) Tushar Meyer MD LAB MICROBIOLOGY - GENERAL ORDERABLES Final Result Performing Organization Address [facility] Co de Phone Number [address] [address] * (ABNORMAL) Troponin T high-sensitivity series (baseline, 2hr, 4hr, 6hr) (10/09/2024 9:43 PM [employer] OPERATOR) Pathologist [facility] Trop T hs 28(H) <=14 ng/L Comment: Interpretive Data For further hscTnT resources including the diagnostic algorithm and an aid in interpretation, copy and paste this link: https://nrl.testcatalog.org/show/hsTrop Current Interpretive Data last revised 2020. Blood 10/09/2024 9:43 PM [employer] OPERATOR 10/09/2024 9:57 PM [employer] OPERATOR Hans Vang DO LAB BLOOD ORDERABLES Final Result Performing Organization Address [facility] Co de Phone Number [address] [address] * eGFR (10/09/2024 9:43 PM [employer] OPERATOR) [facility] eGFR >90 >=60 mL/min/1. 73 m2 Comment: [...] last reviewed 2021. Blood 10/09/2024 9:43 PM [employer] OPERATOR 10/09/2024 9:57 PM [employer] OPERATOR Hans Vang DO LAB BLOOD ORDERABLES Final Result [facility] [address] [facility] Department [place] [address] * (ABNORMAL) Differential, auto (10/09/2024 9:43 PM [employer]PER[employer]) Neutrophil abs 7.4(H) 1.5 - 6.5 K/cumm Imm gran abs 0.2(H) 0.0 - 0.1 K/cumm [facility] Lymphocyte abs 1.9 0.8 - 3.3 K/cumm [facility] Monocyte abs 1.2(H) 0.2 - 0.8 K/cumm [facility] Eosinophil abs 0.2 0.0 - 0.5 K/cumm [facility] Basophil abs 0.1 0.0 - 0.1 K/cumm [facility] Neutrophil pct 68.2 % [facility] Comment: Interpretive Data Percent cell count reference ranges are not reported, since discordance with absolute values may lead to misinterpretation of CBC data. Current Interpretive Data was last revised on 2017. Imm gran pct 1.5 % [facility] Comment: Interpretive Data Percent cell count reference ranges are not reported, since discordance with absolute values may lead to misinterpretation of CBC data. Current Interpretive Data was last revised on 2017. Lymphocyte pct 17.3 % [facility] Comment: Interpretive Data Percent cell count reference ranges are not reported, since discordance with absolute values may lead to misinterpretation of CBC data. Current Interpretive Data was last revised on 2017. Monocyte pct 11.1 % [facility] Comment: Interpretive Data Percent cell count reference ranges are not reported, since discordance with absolute values may lead to misinterpretation of CBC data. Current Interpretive Data was last revised on 2017. Eosinophil pct 1.4 % [facility] Comment: Interpretive Data Percent cell count reference ranges are not reported, since discordance with absolute values may lead to misinterpretation of CBC data. Current Interpretive Data was last revised on 2017. Basophil pct 0.5 % [facility] Comment: Interpretive Data Percent cell count reference ranges are not reported, since discordance with absolute values may lead to misinterpretation of CBC data. Current Interpretive Data was last revised on 2017. Blood 10/09/2024 9:43 PM [employer] OPERATOR 10/09/2024 9:57 PM [employer] OPERATOR Hans Vang DO LAB BLOOD ORDERABLES Final Result [facility] [address] [facility] [place] [address] * (ABNORMAL) CBC with auto differential (10/09/2024 9:43 PM [employer]PERATOR) WBC 10.8(H) 3.8 - 9.9 K/cumm Hgb 11.4(L) 11.9 - 15.5 g/dL [facility] Hct 33.1(L) 35.6 - 45.5 % [facility] Plt 284 150 - 400 K/cumm [facility] MPV 9.8 9.1 - 12.3 fL [facility] RBC 3.58(L) 3.90 - 5.20 M/cumm [facility] MCV 92.5 81.3 - 96.4 fL [facility] MCH 31.8 27.1 - 33.3 pg [facility] MCHC 34.4 32.3 - 35.7 g/dL [facility] RDW CV 12.8 11.1 - 14.9 % [facility] RDW SD 43.8 35.7 - 48.1 fL [facility] NRBC abs 0.00 0.00 - 0.01 K/cumm [facility] Blood Venous blood specimen / Unknown 10/09/2024 9:43 PM [employer] OPERATOR 10/09/2024 9:57 PM [employer] OPERATOR Hans Vang LAB BLOOD ORDERABLES Final Result Performing Organization Address [facility] de Phone Number KADEEM [address] [place] [address] * (ABNORMAL) hCG, blood, quantitative (10/09/2024 9:43 PM [employer] OPERATOR) [facility] hCG, quant 45,621.0( H) 0.0 - 5.0 IUnits/L Comment: Interpretive Data Male: < 5 IU/L Non- premenopausal Female: <5 IU/L [employer] hCG Beta Quant assay procedure was used. Results from different manufacturers or methods may not be comparable. Serial testing should be performed using the same method. Interpretive Data was last revised on 2023 Blood 10/09/2024 9:43 PM [employer] OPERATOR 10/09/2024 10:20 PM [employer] OPERATOR Jania Singleton CT LAB BLOOD ORDERABLES Final R esult Performing Organization Address [facility] Co de Phone Number [address] [place] [address] * Lipase (10/09/2024 9:43 PM [employer] OPERATOR) [facility] Lipase 28 10 - 99 Units/L Blood Venous blood specimen / Unknown 10/09/2024 9:43 PM [employer] OPERATOR 10/09/2024 9:57 PM [employer] OPERATOR Hans Vang LAB BLOOD ORDERABLES Final Result Performing Organization Address [facility] Co de Phone Number M[address] [place] [address] * (ABNORMAL) Comprehensive metabolic panel (10/09/2024 9:43 PM [employer] OPERATOR) [facility] Sodium 131(L) 135 - 145 mmol/L Potassium, pl 3.4 3.3 - 4.9 mmol/L [facility] Chloride 99 97 - 110 mmol/L [facility] CO2 22 22 - 32 mmol/L [facility] Anion gap 10 2 - 15 mmol/L [facility] BUN 9 6 - 25 mg/dL [facility] Creatinine 0.73 0.60 - 1.10 mg/dL [facility] Glucose 107 70 - 199 mg/dL [facility] Comment: Interpretive Data Fasting glucose >/= [...] Calcium 8.9 8.5 - 10.3 mg/dL [facility] Bilirubin, total 0.5 0.1 - 1.2 mg/dL [facility] Protein, pl 7.3 6.5 - 8.5 g/dL [facility] Albumin 3.8 3.5 - 5.0 g/dL [facility] Alk phos 62 40 - 130 Units/L [facility] ALT 17 7 - 45 Units/L [facility] AST 32 10 - 45 Units/L [facility] Blood 10/09/2024 9:43 PM [employer] OPERATOR 10/09/2024 9:57 PM [employer] OPERATOR Hans Vang DO LAB BLOOD ORDERABLES Final Result Performing Organization Address City/State/[facility] Co de Phone Number [facility] [address] [facility] [place] [address] from Last 3 Months Insurance [facility] [employer] Care Teams Toe Former Relationship Specialty Start Date End Date Unknown, Notinfile PCP - General 04/15/22 Unknown, Notinfile 04/15/22
--- OUTSIDE RECORDS SUMMARY | 2025-01-02 11:01 | XMS_ITS | Encounter Summary ---
Author Organization [facility] Address [facility] [place] [address] Care Team Providers Care [employer] Sorter Name Role Phone Keith Jain MD Primary Care Provider Rut Gandara MD Primary Care Provider [phone] Encounter Details Date Type Department Care Team (Late st Contact Info) Description 05/30/2018 Hospital Follow-up Call [facility] [place] [address] Katherine Degroot RN Social History Tobacco Use [...] on filedocumented in this encounter Care Teams [employer] S[employer] Relationship Specialty Start Date End Date Keith Jain MD PCP - General 06/01/14 06/04/24 Rut Gandara MD 3 [facility], [address] [address] PCP - General FAMILY PRACTICE 06/05/24 documented as of this encounter
[2025-01-02] MEDS: SODIUM CHLORIDE 0.9% IV 1,000 ML 999 ML IV CONT (11:16)
[2025-01-02] MEDS: METOCLOPRAMIDE HCL INJ 10 MG/2 ML VIAL IV PUSH (11:16)
[2025-01-02] MEDS: diphenhydrAMINE HCl INJ 50 MG/ML VIAL 25 MG IV PUSH (11:16)
[2025-01-02] MEDS: ACETAMINOPHEN 500 MG TABLET 1000 MG PO (11:16)
[2025-01-02 11:40] LABS: BEDSIDEPREGUCG Negative (Negative)
--- NOTE | 2025-01-02 11:47 | ED.HA ---
HPI - Headache General Chief Complaint: Headache Stated Complaint: headache, n/v Time Seen by Provider: 01/02/25 10:53 Source: patient Mode of arrival: ambulatory Limitations: no limitations History of Present Illness HPI Narrative: This is a 39 year old female that presents to the ER for headache. Ongoing since yesterday. Started on the right side of her head, now is more diffuse. Reports she had an episode of nausea and vomiting this morning. Also reports some associated cold symptoms. Reports cough, congestion. Denies fevers. Related Data Home Medications ?Medication ?Instructions ?Recorded ?Confirmed ?Last Taken ?Type No Home Medications 01/02/25 01/02/25 Unknown History Allergies Allergy/AdvReac Type Severity Reaction Status Date / Time No Known Allergies Allergy Verified 01/02/25 10:31 Review of Systems Review of Systems: CONSTITUTIONAL: Denies fever ENT: Reports congestion RESPIRATORY: Reports cough GASTROINTESTINAL: Reports nausea, vomiting NEUROLOGIC: Reports headache. Denies numbness, or weakness. All systems reviewed & are unremarkable except as noted in HPI and below Exam Narrative: GENERAL: Well-appearing, well-nourished, and in no acute distress. HEAD: Normocephalic, atraumatic. EYES: PERRLA and EOMI. ENT: Nares clear, no rhinorrhea or epistaxis. Mucous membranes moist. Oropharynx without tonsillar hypertrophy exudate or other lesions. Bilateral TMs pearly no non-bulging NECK: Supple. No adenopathy or masses. CHEST: Clear to auscultation. No respiratory distress. No wheezes rales or rhonchi HEART: Regular rate and rhythm. No murmur heard. Normal peripheral pulses. EXTREMITIES: Normal range of motion. No edema. Strength equal in bilateral upper and lower extremities (5/5) SKIN: Warm, dry, no rash. NEURO: No focal deficits. Alert and oriented x3. Cranial nerves 2-12 grossly intact PSYCH: Normal mood and affect Course Course Emergency Course: Patient updated on workup and agrees with plan of care. Resting comfortably Vital Signs Vital signs: Vital Signs Temperature 98.4 F 01/02/25 10:39 Pulse Rate 64 01/02/25 10:39 Respiratory Rate 18 01/02/25 10:39 Blood Pressure 151/100 H 01/02/25 10:39 Pulse Oximetry 100 01/02/25 10:39 Oxygen Delivery Room Air 01/02/25 10:39 Temperature 98.4 F 01/02/25 10:39 Pulse Rate 64 01/02/25 10:39 Respiratory Rate 18 01/02/25 10:39 Blood Pressure 151/100 H 01/02/25 10:39 Pulse Oximetry 100 01/02/25 10:39 Oxygen Delivery Room Air 01/02/25 10:39 MDM - Headache MDM Narrative Medical decision making narrative: Patient presents to the emergency department for headache ongoing since yesterday. She is afebrile and nontoxic appearing. She is neurologically intact. CT brain without acute findings. Patient additionally endorsing some cold symptoms. Influenza, RSV and COVID screens are negative. Patient updated on workup and agrees with plan of care. Resting comfortably. She is to follow up with primary provider. She was given warnings to return to the ER Differential Diagnosis Differential diagnosis: Likely migraine, tension headache, headache and sinusitis Lab Data Attestation: I reviewed the patient's lab results. Labs: Lab Results 01/02/25 01/02/25 Range/Units 11:39 12:25 POC Urine HCG, Qual Negative (Negative) Influenza A (RT-PCR) Negative (Negative) Influenza B (RT-PCR) Negative (Negative) RSV (RT-PCR) Negative (Negative) SARS-CoV-2 RNA (RT-PCR) Negative (Negative) Imaging Data Radiologist's impression: ITS Impressions Head CT 01/02/25 12:56 Impression: No significant abnormality seen. Critical Care Time Critical Care Time Critical Care Time: No Discharge Plan Discharge Clinical Impression: Headache Qualifiers: Headache type: unspecified Headache chronicity pattern: acute headache Intractability: not intractable Qualified Code(s): R51.9 - Headache, unspecified Patient Disposition: Home Condition: Improved Instructions: Acute Headache (ED) Additional Instructions: Return to the emergency department if you experience fever, chest pain, shortness of breath, persistent vomiting, weakness, numbness, or any other symptoms that are concerning to you. Rest. Remain well hydrated. Tylenol or Ibuprofen as needed for pain Follow up with your primary care doctor Patient Language: [place] Prescriptions: No Action No Home Medications Follow-up/Referrals: UNKNOWN,DOCTOR [Primary Care Provider] -
[2025-01-02 13:04] LABS: Influenza A QL RT-PCR Negative (Negative); Influenza B QL RT-PCR Negative (Negative); RSV RNA, RT-PCR Negative (Negative); SARS-CoV-2 RNA PCR Negative (Negative)
[2025-01-02 13:27] VITALS: BP 148/97; PULSE 68; RESP 18; O2SAT 100
== END 2025-01-02 13:28 | disposition home or self-care (01) ==
PROVIDERS: Emergency Provider Physician Assistant
DX: R51.9 Headache, unspecified (principal); Z20.822 Contact with and (suspected) exposure to COVID-19
CPT/HCPCS: 70450; 81025; 87637; 96361; 96374; 96375; 99284; A9270; J1200; J2765; J7030

== ENCOUNTER 2025-08-10 19:58 | Emergency (ER) | payer SELFPAY ==
--- OUTSIDE RECORDS SUMMARY | 2018-11-21 06:00 | XMS_ITS | Continuity of Care Document ---
Author Organization [facility] Address [address] [place] [address] Phone Care Team Providers Care Examination Supervisor Name Role Phone Unavailable Unavailable Unavailable Allergies, Adverse Reactions, Alerts Substance Reaction Status Criticality No Known Allergies Active No Inform ation Procedures Procedure Date X-RAY EXAM CHEST 2 VIEWS OFFICE/OUTPATIENT VISIT, EST Advance Directives Directive Yes / No Effective Date File Name No Information Encounters Encounter Description Practice Location Reason(s) For Visit Diagnoses Date Provider Providers Copied on Encounter [facility] , [address], [place], [place], [id number], tel:[phone] [facility] No Information No Information OFFICE/OUTPAT IENT VISIT, EST [facility] , [address], [place], [place], [id number], tel:[phone] [facility] [place] PPD result (chief complaint) Body mass index (BMI) 27.0-27.9, adultPPD positive No Information Family History Family Member Type Diagnosis Age At Onset No Information Payers Payer name Insurance type Covered green party ID Authoriza tion(s) No Information Social History Type Description Quantity Date Captured Comments Sex Female Smoking Status No Information Chief Complaint And Reason For Visit No Information Reason For Referral Reason For Referral No Information Plan Of Treatment Date Type Action Status Future Order: Lab Order QuantiFE ELKE(R)-TB Gold Plus ([id number]), Scheduled for: Ordered Nutrition Recommendation Nutrition therap y completed History Of Present Illness Encounter Date Complaint History Of Prese nt Illness PPD result pt here for posi tive PPD1st PPD placed - did not return for luza1ep PPD placed and 0 mm3rd PPD placed and 10 mm indurationno cough, chest pain, known exposure, travel, fever, night sweats Functional Status Date Functional Assessmen t No Information Instructions Date Instruction Additional Infor magdy Prescribed activity/ exercise education Related to Body mass index (BMI) 27.0-27.9, adult Assessments Type Assessment Date No Information Patient Care Teams Name Effective Dates (start - stop) Status Members No Information
--- OUTSIDE RECORDS SUMMARY | 2018-11-21 06:00 | XMS_ITS | Continuity of Care Document ---
Author Organization [facility] Address [address] [place] [address] Phone Care Team Providers Care Postdoctoral Research Associate Name Role Phone Unavailable Unavailable Unavailable Allergies, Adverse Reactions, Alerts Substance Reaction Status Criticality No Known Allergies Active No Inform ation Procedures Procedure Date X-RAY EXAM CHEST 2 VIEWS OFFICE/OUTPATIENT VISIT, EST Advance Directives Directive Yes / No Effective Date File Name No Information Encounters Encounter Description Practice Location Reason(s) For Visit Diagnoses Date Provider Providers Copied on Encounter [facility] , [address], [place], [place], [id number], tel:[phone] [facility] No Information No Information OFFICE/OUTPAT IENT VISIT, EST [facility] , [address], [place], [place], [id number], tel:[phone] [facility] [place] PPD result (chief complaint) Body mass index (BMI) 27.0-27.9, adultPPD positive No Information Family History Family Member Type Diagnosis Age At Onset No Information Payers Payer name Insurance type Covered alliance party ID Authoriza tion(s) No Information Social History Type Description Quantity Date Captured Comments Sex Female Smoking Status No Information Chief Complaint And Reason For Visit No Information Reason For Referral Reason For Referral No Information Plan Of Treatment Date Type Action Status Future Order: Lab Order QuantiFE ELKE(R)-TB Gold Plus ([id number]), Scheduled for: Ordered Nutrition Recommendation Nutrition therap y completed History Of Present Illness Encounter Date Complaint History Of Prese nt Illness PPD result pt here for posi tive PPD1st PPD placed - did not return for bpit2zg PPD placed and 0 mm3rd PPD placed [...]
--- OUTSIDE RECORDS SUMMARY | 2025-08-10 20:01 | XMS_ITS | Data Portability ---
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 Discussed the various types of Infections and STIs, related symptoms and the potential consequences (including effects on fertility) of STI. Reviewed ways to limit exposure and prevention techniques. POC SureSwab Would like STI blood work [email or web address] Not available 01/05/2023 16:41:03 Plan of Treatment Reminders Order Date Submit Date Provider Last Modified By Organization Details Last Modified Time Details Appointments None recorded. Lab unlisted lab - STD screening ([facility]) 2023 024 PERI [employer], [address] [place], [address], 4 13:32:34 bacterial vaginosis + vaginitis panel, vaginal 2023 024 [employer], [address] [place], [address], 4 14:40:05 bacterial vaginosis + vaginitis panel, vaginal 2022 023 [employer], [address] [place], [address], 3 09:42:58 unlisted lab - STD screening ([facility]) 2022 023 PERI [place] [facility], [address] [place], [address], 3 11:27:10 bacterial vaginosis + vaginitis panel, vaginal 2022 023 PERI [place] [facility], [address] [place], [address], 3 15:29:00 unlisted lab - STD screening ([facility]) 2022 023 PERI [facility], [address] [place], [address], 3 11:26:50 Referral None recorded. Procedures None recorded. Surgeries None recorded. Imaging None recorded. Medication Orders None recorded. Patient TargetsNo targets recorded. Patient Instructions Encounter Date Encounter Id Patient Instructions Last Modified By Organization Details Last Modified Time 03/09/2023 [id number] Patient Health Questionnaire-9* kbritsch Not available 03/12/2023 11:02:53 learning about dietary guidelines Not available 03/09/2023 16:06:50 eating healthy foods: care instructions Not available 03/09/2023 16:06:50 abuse/domestic violence education Not available 03/09/2023 16:06:50 weight managemen t education Not available 03/09/2023 16:06:50 03/07/2024 [id number] body mass index: care instructions Not available 03/07/2024 16:18:40 A healthy lifestyle: care instructions Not available 03/07/2024 16:18:40 Following the [employer] Food Guide: Care Instructions Not available 03/07/2024 16:18:40 exercise program : getting started Not available 03/07/2024 16:18:40 Reason for Referral None Reported. Results Created Date Observation Date Name Description Value Unit Range Abnormal Flag Note LastModifiedBy Organization Detail LastModifiedTime 01/06/20 23 01/06/2023 STD GERMÁN PONCE ([facility] ) hep BS Ag Non-Re active non-re active normal Not Available [address], [address], 01/06/2023 11:26:50 01/06/20 23 01/06/2023 STD GERMÁN PONCE ([facility] ) hep C Ab Non-Re active non-re active normal Not Available [address], [address], 01/06/2023 11:26:50 01/06/20 23 01/06/2023 STD GERMÁN PONCE ([facility] ) HIV 1/2 Ag/Ab Non-Re active non-re active normal Not Available [address], [address], 01/06/2023 11:26:50 01/06/20 23 01/06/2023 STD GERMÁN PONCE ([facility] ) syphilis Ab Non-Re active non-re active normal Not Available [address], [address], 01/06/2023 11:26:50 01/06/20 23 01/08/2023 VAGIN ITIS PLUS STD PANEL bacterial vaginosis BV POS negati ve abnormal Not Available [address], [address], 01/08/2023 15:29:00 01/06/20 23 01/08/2023 VAGIN ITIS PLUS STD PANEL mo species C. spp POS negati ve abnormal Not Available [address], [address], 01/08/2023 15:29:00 01/06/20 23 01/08/2023 VAGIN ITIS PLUS STD PANEL mo glabrata C. gla neg negati ve normal Not Available [address], [address], 01/08/2023 15:29:00 01/06/20 23 01/08/2023 VAGIN ITIS PLUS STD PANEL trichomonas vaginalis CV/TV TRICH neg negati ve normal Not Available [facility] [address] [place], [address], 01/08/2023 15:29:00 01/06/20 23 01/08/2023 VAGIN ITIS PLUS STD PANEL chlamydia trachomatis CT neg negati ve normal This repor t is inten ded for us in clini gil monit oring and manag ement of [facility] nts. It is not inten ded for use in medic al-le gal appli catio n. Not Available [facility] [address] [place] [address], [address], 01/08/2023 15:29:00 01/06/20 23 01/08/2023 VAGIN ITIS PLUS STD PANEL neisseria gonorrhoeae GC neg negati ve normal This repor t is inten ded for us in clini gil monit oring and manag ement of [facility] nts. It is not inten ded for use in medic al- gal appli catio n. Not Available [facility] [address] [place] [address], [address], 01/08/2023 15:29:00 03/09/20 23 03/10/2023 STD SCREE ROSARIO ([facility] ) hep BS Ag Non-Re active non-re active normal Not Available [address], [address], 03/10/2023 11:27:10 03/09/20 23 03/10/2023 STD SCREE ROSARIO ([facility] ) hep C Ab Non-Re active non-re active normal Not Available [facility] [address] [place] [address], [address], 03/10/2023 11:27:10 03/09/20 23 03/10/2023 STD SCREE ROSARIO ([facility] ) HIV 1/2 Ag/Ab Non-Re active non-re active normal Not Available [facility] [address] [place] [address], [address], 03/10/2023 11:27:10 03/09/20 23 03/10/2023 STD GERMÁN PONCE ([facility] ) syphilis Ab Non-Re active non-re active normal Not Available [address], [address], 03/10/2023 11:27:10 03/09/20 23 03/13/2023 VAGIN ITIS PLUS STD PANEL bacterial vaginosis BV POS negati ve abnormal Not Available [address], [address], 03/14/2023 09:42:58 03/09/20 23 03/13/2023 VAGIN ITIS PLUS STD PANEL mo species C. spp POS negati ve abnormal Not Available [address], [address], 03/14/2023 09:42:58 03/09/20 23 03/13/2023 VAGIN ITIS PLUS STD PANEL mo glabrata C. gla neg negati ve normal Not Available [address], [address], 03/14/2023 09:42:58 03/09/20 23 03/13/2023 VAGIN ITIS PLUS STD PANEL trichomonas vaginalis CV/TV TRICH neg negati ve normal Not Available [address], [address], 03/14/2023 09:42:58 03/09/20 23 03/13/2023 VAGIN ITIS PLUS STD PANEL chlamydia trachomatis CT neg negati ve normal This repor t is inten ded for us in clini gil monit oring and manag ement of patie nts. It is not inten ded for use in medic al-le gal appli catio n. Not Available [address], [address], 03/14/2023 09:42:58 03/09/20 23 03/13/2023 VAGIN ITIS PLUS STD PANEL neisseria gonorrhoeae GC neg negati ve normal This repor t is inten ded for us in clini gil monit oring and manag ement of pat[facility] nts. It is not inten ded for use in medic al-le gal appli catio n. Not Available [facility] [address] [facility], [place], [address], 03/14/2023 09:42:58 04/09/20 23 04/11/2023 CULTU RE, URINE , ROUTI NE culture, urine, routine SEE NOTE abnormal CULTU RE, URINE , ROUTI NE Micro Numbe r: [id number] Test Statu s: Final Speci men [...] lexin and lorac arbef . Not Available [facility] [address] [place], [address], 04/11/2023 18:42:33 01/11/20 24 01/14/2024 STD SCREE ROSARIO ([facility] ) hep BS Ag Non-Re active non-re active normal Not Available [address], [address], 01/14/2024 13:32:34 01/11/20 24 01/14/2024 STD SCREE ROSARIO ([facility] ) hep C Ab Non-Re active non-re active normal Not Available [address], [address], 01/14/2024 13:32:34 01/11/20 24 01/14/2024 STD SCREE ROSARIO ([facility] ) HIV 1/2 Ag/Ab Non-Re active non-re active normal Not Available [address], [address], 01/14/2024 13:32:34 01/11/20 24 01/14/2024 STD [facility] ROSAR[facility] ([facility] ) syphilis Ab Non-Re active non-re active normal Not Available [address], [address], 01/14/2024 13:32:34 01/11/20 24 01/14/2024 VAGIN ITIS PLUS STD PANEL bacterial vaginosis BV POS negati ve abnormal Not Available [address], [address], 01/14/2024 14:40:05 01/11/20 24 01/14/2024 VAGIN ITIS PLUS STD PANEL mo species C. spp POS negati ve abnormal Not Available [address], [address], 01/14/2024 14:40:05 01/11/20 24 01/14/2024 VAGIN ITIS PLUS STD PANEL mo glabrata C. gla neg negati ve normal Not Available [address], [address], 01/14/2024 14:40:05 01/11/20 24 01/14/2024 VAGIN ITIS PLUS STD PANEL trichomonas vaginalis CV/TV TRICH POS negati ve abnormal Not Available [address], [address], 01/14/2024 14:40:05 01/11/20 24 01/14/2024 VAGIN ITIS PLUS STD PANEL chlamydia trachomatis CT neg negati ve normal This repor t is inten ded for us in clini gil monit oring and manag ement of patie nts. It is not inten ded for use in medic al-le gal appli catio n. Not Available [address], [address], 01/14/2024 14:40:05 01/11/20 24 01/14/2024 VAGIN ITIS PLUS STD PANEL neisseria gonorrhoeae GC neg negati ve normal This repor t is inten ded for us in clini gil monit oring and manag ement of patie nts. It is not inten ded for use in medic al-le gal appli catio n. Not Available [address], [address], 01/14/2024 14:40:05 Result Notes None recorded. Problems Name Problem SNOMED Code Status Onset Date Resolution Date Notes Provider Name and Address Organization Details Recorded Time Gestatio n period, 38 weeks 50482989 Completed 201709/02/2018 38 weeks gestatio n of pregnanc y; Progress : Stable Added By: Camelia Galloway Add to Current Problems : NO ProblemS tatus: Resolve Not Available [facility] 2 20:51:43 Normal pregnanc y in [facility] [place] [id number] 4106 Completed 201709/02/2018 Encounte r for supervis ion of other normal pregnanc y, third trimeste r; Progress : Stable Added By: Camelia Galloway Add to Current Problems : NO ProblemS tatus: Resolve Not Available [facility] 2 20:51:43 Normal pregnanc y 78260240 Completed 201701/11/2024 Medical visit for normal pregnanc y; Location : None Progress : Stable Added By: Camelia Galloway Add to Current Problems : YES ProblemS tatus: Current Richard Thompson null, [facility] IV 4 16:17:00 Antenata l screenin g [...] Start Date : 10/30/19 18 Not Available [facility] 2 20:51:44 Uterine size for dates discrepa ncy Completed 201707/06/2018 Uterine size-gerda e discrepa ncy, third trimeste r; Progress : Stable Added By: Kaitlin Paris Add to Current Problems : NO ProblemS tatus: Resolve Not Available [facility] 2 20:51:44 Poor growth affectin g manageme nt 594846239 Completed 201707/06/2018 Small for dates; Location : None Progress : Stable Added By: Kaitlin Paris Add to Current Problems : YES ProblemS tatus: Resolve Not Available [facility] 2 20:51:43 Finding of pattern of menstrua l cycle Completed 201805/07/2023 Excessiv e and frequent menstrua tion with irregula r cycle; Progress : Stable Added By: Kaitlin Paris Add to Current Problems : YES ProblemS tatus: Current Erika Romeo null, [facility] 3 01:21:52 Acute vaginiti s 50367302 Completed 201805/07/2023 Acute vaginiti s; Progress : Stable Added By: Ketan Rhodes Add to Current Problems : YES ProblemS tatus: Current Erika Romeo null, [facility] 3 01:21:55 Sampling of vagina for Papanico laou smear Completed 201805/07/2023 Encounte r for gynecolo gical examinat ion (general ) (routine ) without abnormal findings ; Progress : Stable Added By: Evangelina Mims Add to Current Problems : YES ProblemS tatus: Current Erika Romeo null, [facility] 3 01:22:09 Screenin g for malignan t neoplasm of cervix Completed 201805/07/2023 Encounte r for screenin g for malignan t neoplasm of cervix; Progress : Stable Added By: Jenni Cain Add to Current Problems : YES ProblemS tatus: Current Erika Romeo null, [facility] 3 01:21:49 Atypical squamous cells of undeterm ined signific ance on cervical Papanico laou smear 767276457 Completed 201805/07/2023 Atypical squamous cells of undeterm ined signific ance on cytologi c smear of cervix (ASC-US) ; Progress : Stable Added By: Kaitlin Paris Add to Current Problems : YES ProblemS tatus: Current Erika Romeo null, [facility] 3 01:22:12 Human papillom avirus deoxyrib onucleic acid detected , high risk on cervical specimen 539486641 Completed 201805/07/2023 Cervical high risk human papillom avirus (HPV) DNA test positive ; Progress : Stable Added By: Kaitlin Paris Add to Current Problems : YES ProblemS tatus: Current Erika Romeo null, [facility] 3 01:22:14 Pregnanc y detectio n examinat ion Completed 201805/07/2023 Encounte r for pregnanc y test, result positive ; Progress : Stable Added By: Ashley Smith Add to Current Problems : YES ProblemS tatus: Current Erika Mariasch null, [facility] 3 01:22:17 Amenorrh ea 87194131 Completed 201805/07/2023 Amenorrh ea, unspecif ied; Progress : Stable Added By: Rosy Randle Add to Current Problems : YES ProblemS tatus: Current Erika Britsch null, [facility] 3 01:21:46 Clinical finding Completed 201905/07/2023 Encounte r for surveill ance of injectab le contrace ptive; Progress : Stable Added By: Jenni Cain Add to Current Problems : YES ProblemS tatus: Current Erika Britsch null, [facility] 3 01:22:04 Syphilis test finding 745569165 Completed 201905/07/2023 Encounte r for screenin g for infectio ns with a predomin antly sexual mode of transmis duarte; Progress : Stable Added By: Jenni Cain Add to Current Problems : YES ProblemS tatus: Current Erika Britsch null, [facility] 3 01:22:07 Clinical finding Completed 201905/07/2023 Encounte r for initial prescrip tion of injectab le contrace ptive; Progress : Stable Added By: Annie Frankel Add to Current Problems : YES ProblemS tatus: Current Erika Mariasch null, [facility] 3 01:22:02 Notes:GBS Screening (V28.6) ; OnsetDate: 04/30/2018; ResolvedDate: [...] Name and Address Organization Details Recorded Time Date of Last Pap Smear completed Becky Burns [facility] IV 01/05/2023 16:34:45 procedure on eye completed Cecily Vela [facility] IV 09/30/2021 00:59:25 Imaging Results None recorded. [...] completed Not Available Not Available Not Available Lidocaine Viscous 2 % mucosal solution APPLY 10 ML TO THE MOUTH OR THROAT THREE TIMES DAILY NEEDED FOR MOUTH/DE NTAL PAIN active Not Available Not Available No t Available fluconazo le 150 mg tablet 1 tab PO on last day of antibiot ics and then repeat 1 tab PO 72 hours later. 03/07 completed Not Available Not Available Not Available benzonata te 200 mg capsule TAKE 1 CAPSULE BY MOUTH THREE TIMES DAILY FOR 7 DAYS 07/07 completed Not Available Not Available Not Available hydrocodo ne 5 mg-acetam inophen 325 mg tablet TAKE 1 TABLET BY MOUTH EVERY 6 HOURS NEEDED FOR PAIN 05/29 completed Not Available Not Available Not Available [...] Available Not Available Not Available acetamino phen 500 mg tablet TAKE 2 TABLETS (1,000 MG TOTAL) BY MOUTH EVERY 6 HOURS NEEDED FOR PAIN active Not Available Not Available No t Available amoxicill in 500 mg tablet TAKE 1 TABLET EVERY 8 HOURS BY ORAL ROUTE FOR 7 DAYS. 11/11 completed Not Available Not Available Not Available ketorolac 10 mg tablet TAKE 1 TABLET BY MOUTH EVERY 6 HOURS NEEDED FOR PAIN active Not Available Not Available No t Available Vitamin tablet 1 tablet at night [...] 150 mg/mL intramus cular Suspensi on RxNorm: [id number] Allow Substitu tion: True Refill Denied: No [...] 1 TABLET BY MOUTH THREE TIMES DAILY 05/29 completed Not Available Not Available Not Available methylpre dnisolone 4 mg tablets in [...] (EIGHT) HOURS NEEDED FOR VOMITING OR NAUSEA 05/29 completed Not Available Not Available Not Available cefdinir 300 mg capsule TAKE 1 CAPSULE BY MOUTH TWICE A DAY FOR 10 DAYS 05/29 completed Not Available Not Available Not Available fluticaso ne propionat e 50 mcg/actua [...] 1 TABLET BY MOUTH EVERY 12 HOURS 06/05 completed Not Available Not Available Not Available oxycodone 5 mg tablet TAKE 1 TABLET BY MOUTH EVERY 6 HOURS NEEDED FOR SEVERE PAIN active Not Available Not Available No t Available clindamyc in 1 % lotion 03/09 completed Not Available Not Available Not Available nitrofura ntoin monohydra te/macroc rystals 100 mg capsule TAKE 1 CAPSULE BY MOUTH TWICE DAILY FOR 5 DAYS 01/05 completed Not Available Not Available Not Available chlorhexi dine gluconate 0.12 % mouthwash USE 15 ML TO THE MOUTH OR THROAT TWICE DAILY DIRECTED . active Not Available Not Available No t Available adapalene 0.3 % topical gel APPLY A PEA SIZED AMOUNT TO THE FACE ONCE DAILY AT NIGHT. NOT FOR EYELIDS. MOISTURI ZE AFTER 05/29 completed Not Available Not Available Not Available FeroSul 325 mg (65 mg iron) tablet 1 p.o. daily with orange juice/fo od. 08/16 completed Ferrous Sulfate 325mg Tablets Allow Substitu tion: True Refill Denied: No Not Available Not Available Not Available Diclegis 10 mg-10 mg tablet,de layed release One PO QHS 02/26 completed Diclegis 10mg/10m g Tablets, Delayed Release RxNorm: [id number] Allow Substitu tion: True Refill Denied: No Not Available Not Available Not Available Diclegis One PO QHS 10/29 completed Diclegis 10mg/10m g Tablets, Delayed Release RxNorm: [id number] Allow Substitu tion: True Refill Denied: No Not Available Not Available Not Available Aczone 7.5 % topical gel with pump APPLY TO FACE EVERY MORNING 03/07 completed Not Available Not Available Not Available Oneida 0.25 mg-0.035 mg tablet TAKE 1 TABLET BY MOUTH ONCE A DAY 05/29 completed Not Available Not Available Not Available Miebo (PF) 100 % eye drops INSTILL ONE DROP INTO EACH EYE FOUR TIMES DAILY 01/10 completed Not Available Not Available Not Available Vitals Date Recorded Body height Body mass index (BMI) Body weight Body temperature Systolic And Diastolic Provider Name and Address Organization Details Last Updated DateTime 01/05/2023 160.02 cm 26.4 kg/m2 80748.5 4 g 98.1 [degF] 110/82 mm[Hg] Beckymayte Burns [facility] [employer] 3 16:33:13 Date Recorded Body height Body mass index (BMI) Body weight Body temperature Systolic And Diastolic Provider Name and Address Organization Details Last Updated DateTime 01/11/2024 160.02 cm 26.2 kg/m2 85702.6 7 g 97.7 [degF] 112/70 mm[Hg] Richard Thompson [facility] [employer] [facility] 4 16:27:34 Date Recorded Body height Body mass index (BMI) Body weight Systolic And Diastolic Provider Name and Address Organization Details Last Updated DateTime 03/07/2024 160.02 cm 26.4 kg/m2 52603.26 g 110/62 mm[Hg] Sheila Murcia [facility] 03/07/2024 16:01:35 Date Recorded Body height Body mass index (BMI) Body weight Body temperature Systolic And Diastolic Provider Name and Address Organization Details Last Updated DateTime 03/09/2023 160.02 cm 25.3 kg/m2 75049.2 7 g 97.7 [degF] 104/66 mm[Hg] Erika Romeo [facility] [employer] 3 15:45:35 Date Recorded Body weight Body mass index (BMI) Body height Systolic And Diastolic Provider Name and Address Organization Details Last Updated DateTime 05/29/2025 57986.83 g 30 kg/m2 160.02 cm 100/60 mm[Hg] Solis Antony [facility] 05/29/2025 16:22:43 Social History Question Answer Notes LastModified by Organizat ion Details LastModified Time Tobacco Smoking Status Never Smoker Erika cano, [facility] 03/09/2023 15:49:31 If You Are , What Was Your Level Of Alcohol Consumption Prior To ? Occasional Information not available 03/09/2023 How Many Years Have You Consumed Alcohol? 5 Information not available 01/11/2024 Are You Blind Or Do You Have Difficulty Seeing? No Information not available 03/09/2023 Are You Deaf Or Do You Have [...] Sexually Active? Yes Information not available 09/30/2021 Sex: Female Functional Status Question Answer Note LastModified by Organizat ion Details LastModified Time Do you use any illicit or recreational drugs? No Information not available 03/09/2023 Do you or have you ever used any other forms of tobacco or nicotine? No Information not available 03/09/2023 What is your level of alcohol consumption? Occasional Information not available 03/09/2023 Are you currently employed? Yes Information not available 01/11/2024 What is your exercise level? Occasional Information [...] N Cytomegalovirus N Hyperthyroidism N MRSA N Breast Cancer N Herpes (HSV) N Blood Transfusion N Lung Cancer N Depression N Hypothyroidism N Incontinence N Panic Attacks N Neurological Disorder N Deep Vein Thrombosis N Anxiety Disorder N Autoimmune disease N Arthritis N Tuberculosis/Positive PPD N Shingles N Polycystic Ovarian Syndrome N Infertility N Cervical Cancer N Hematuria N Chlamydia N Stroke N Varicosities N Seasonal allergies [...] N Diabetes Mellitus (non-insulin dependent ) N Multiple Sclerosis N Ovarian Problems N Gonorrhea N Frequent Urinary Tract infections N Osteopenia N Headaches/migraines N GERD (reflux) N Ovarian Cancer N Diabetes (insulin dependent) N Seizures/Epilepsy N Breast Problems N Fibroids N Asthma N Heart Attack N Lupus N Endometrial Cancer N Rubella N Blood Clotting Disorder N Bipolar Disorder N Diabetes Mellitus (during ) N Ulcerative Colitis N Hepatitis N Heart Disease N Pulmonary Embolism N RPR N Chicken Pox N Osteoporosis N Gynecological History Statement/Question Response Flow Heavy Date of last HPV 11/11/2021 Date of LMP 03/30/2025 HPV Vaccine N Duration of Flow (days) [...] Diagnosis SNOMED-CT Code Diagnosis ICD10 Code Diagnosis IMO Codes Diagnosis Note [id number] EBER PRESSLEY CNM [facility] [address] [place] [address] 11/11/2021 15:45:39 11/12/2021 19:03:29 Gynecologic examination 79568680 Z01.419 Screening for malignant neoplasm of cervix 056118694 Z12.4 Pap, HPV and STI testing collected without complicati on [facility] education 106251610 Z30.09 Venereal d isease screening 021621196 Z11.3 routine screening Vaginitis 27999134 N76.0 BV noted on exam RX sent [id number] ELIZABETH FONTANA [facility] [address] [place] [address] 07/07/2022 16:34:05 07/10/2022 11:25:00 Screening for disorder 924624252 Z11.3 N89.9 [id number] ELIZAEBTH FONTANA [facility] [address] [place] [address] 01/05/2023 15:43:01 01/05/2023 16:44:22 Infection screening 563084947 Z11.9 [id number] SON DESAI, [address] [address] 03/09/2023 15:29:15 03/12/2023 11:09:48 Gynecologic examination 80315026 Z01.419 Patient is an establishe d patient who presents for a gynecologi gil Annual Exam. The patient denies any changes in her medical history. The patient denies any changes in her family medical history. Annual Exam:She reports having no significan t INTERVENTION SPECIALIST symptoms.H er menses are regular, occurring every 1 month(s). Menses lasts for7. Reports they are heavy, but not painful. Denies spotting in between.Pt is currently is not using contracept ion because it makes her feel bad. Pap History: 2021 NILM, HPV negativeSh marya is not due for a pap smear. Breast History:Marleny malhotra reports some right breast/angella st pain. States it is intermitte nt, [...] screening: Managed by PCP Depression screening 171 709487 Z13.31 PHQ9: 3. Pt educated on normal scoring, and discussed depression precaution s and when to notify HCP/go to ER. Venereal d isease screening 792299088 Z11.3 Pt educated on importance of condom use for protection against STD's. Samples collected and sent. Further POC pending lab result review. Pt states understand ing of POC. Pain of breast 27762319 N64.4 Pt educated on breast cancer screening guidelines and discussed normal CBE in office. Pt encouraged to decrease caffeine, chocolate, and nut intake in diet, and push p.o. water intake. Pt may use OTC NSAID therapy. Plan to re-eval sx after diet modificati on. If persistent would recommend breast imaging. Pt states understand ing of POC. Screening for malignant neoplasm of cervix 006644308 [facility]12.[facility]. Pap Hx: No pap collected today. Pt states understand ing and is amenable to POC. Screening for malignant neoplasm of breast 089761127 Z12.39 Pt educated on breast cancer screening guidelines . Pt states understand ing of POC. [id number] SON DESAI [facility] [address] [place] [address] 01/11/2024 16:03:43 01/14/2024 14:27:48 Venereal disease screening [id number] Z11.3 Pt educated on importance of condom use for protection against STD's. Samples collected and sent. Further POC pending lab result review. Pt states understand ing of POC. Family his tory of malignant neoplasm of lung [id number] Z80.1 Patient presents today for follow up on recent [facility] Genetic testing. Discussed plan with patient, who expressed understand ing. - - Negative for any Significan t Gene-- Discussed lifetime cancer risks.-- Discussed recommende d follow up and treatment guidelines .-- Provided informatio n and instructio ns for patient to make a free follow up appointmen t with the [facility] Genetic counselor. -- [facility] folder/angel ntout given to patient.-P t voiced understand ing, no further questions. [id number] SON DESAI, CORRESPONDENCE TRANSCRIBER [facility] h [address] [place] [address] 03/07/2024 15:18:42 03/07/2024 16:46:22 Gynecologic examination [id number] Z01.419 Patient is an establishe d patient who presents for a gynecologi gil Annual Exam. The patient denies any changes in her medical history. The patient denies any changes in her family medical history. 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 Menses lasts for7. Reports they are heavy, but not painful. Denies spotting in between.Pt is currently is not using contracept ion because it makes her feel bad. Pap History: 2021 NILM, HPV negativeSh marya is not due for a pap smear. [...] PCP Screening for malignant neoplasm of cervix [id number] Z12.4 AS[facility]P guidelines reviewed with patient. Pap Hx: No pap collected today. Pt states understand ing and is amenable to POC. Depression screening [id number] Z13.31 PHQ9: 4. Pt educated on normal scoring, and discussed depression precaution s and when to notify HCP/go to ER. Screening for malignant neoplasm of breast [id number] Z12.39 Pt educated on breast cancer screening guidelines . Denies any concerns with breast at this time. Denies any lumps, bumps, nipple discharge or unusual soreness. Pt states understand ing of POC. Venereal d isease screening [id number] Z11.3 Pt educated on importance of condom use for protection against STD's. [id number] Jodee Espinosa is, CNM [facility] [address] [place] [address] 05/29/2025 15:37:41 05/29/2025 17:31:12 Past history of miscarriage [id number] Z87.59 [id number] SAB dx at [facility] on Sunday 05/27 presents today with vaginal bleeding 3 pads a day, discussed normalcy of heavy period like bleeding for 1-2 weeks after SABHas [facility] reviewed Health Concerns Section Related Observation LastModified by Organization Detai ls LastModified Time None Recorded Concern Status LastModified by Organization Details LastModified Time None Recorded Advance Directives Directive None Recorded Payers Insurance Date Sequence Insurance Name Policy Number Policy Goldstein Covered Member ID Goldstein Member ID Guarantor Name 10/20/2024 1 [employer] (PPO) [id number] 1 Lucia Bowman [id number] Lucia Chevis 03/07/2024 [facility] (MEDICAID HMO) [id number] Lucia Chevis [id number] Lucia Chevis 03/07/2024 2 [facility] - DOS ON OR AFTER 21 (MEDICAID REPLACEMENT - HMO) Lucia Chevis [id number] Lucia Chevis 03/07/2024 2 [facility] (MEDICAID) Lucia Chevis [id number] Lucia Chevis 03/07/2024 1 [employer] [id number] Lucia A Angellavis [id number] Lucia Chevis 03/07/2024 2 MED[place]: [place] [employer] [place] [employer] Lucia Chevis [id number] Lucia Chevis 06/05/2025 1 [facility] (MEDICAID HMO) [id number] Lucia Chevis [id number] Lucia Chevis Notes Date Note Type Note Provider Name and Address Organization Details Recorded Time 3 text/html STD screeningReported by PatientDischargeFor associated symptoms, patient reportsno vaginal itching,no vaginal burning,no swelling/redness,no fever/chills,no diarrhea,no abdominal pain,no pelvic pain,no vaginal pain,no pain during urination,no pain during intercourse,no vaginal lump,no genital lesion,no sexually transmitted disease, andno fever.ROS as noted in the HPI [facility] [address], [place], [address], [facility] Glopho IV 01/05/2023 16:41:59 3 text/html Annual GYNReported by PatientGenitourinary symptomsFor menstrual cycle, patient reportsnormal menses. For urinary symptoms, patient reportsno hematuriaandno incontinence. For vulva, patient reportsno genital lesion. For vagina, patient reportsnormal vaginal discharge.Breast symptomsFor breast, patient reportsno breast pain,no breast lump, andno nipple discharge.Endocrine symptomsFor sexual complaints, patient reportsno sexual complaints,no pain during intercourse, andnormal libido. For menopausal symptoms, patient reportsno menopausal symptomsandnormal vaginal lubrication.Psychological symptomsFor psychological symptoms, patient reportsno depression,no anxiety, andno pmdd. Pt states she is doing well. Last [...] exhaled and it was a sharp pain. OSN DESAI, [facility] [address] [place], [address], [facility] Glopho IV 03/09/2023 21:43:34 4 text/html ROS as noted in the HPI Lucia 38 y/o is here for STD screening. She states she has a new partner and wanted to get some testing done. She desires STD bloodwork. She also reports noticing an increase in vaginal discharge, denies vaginal odor and itching. Her LMP was 01/02/24. She has no other concerns as of today. SON DESAI, CORRESPONDENCE TRANSCRIBER [address] [place], [address], [facility] Glopho IV 01/11/2024 16:37:07 4 text/html ROS as noted in the HPI Pt states she is doing well. Last pap: 2021 normal and neg HPV. Pt reports having regular monthly cycles that are not heavy or painful. LMP: 02/29/24 Pt is currently not using anything for contraception. Pt declines STD screening via culture and serum testing. Pt has no other concerns. SON DESAI, CORRESPONDENCE TRANSCRIBER [address], [place], [address], [facility] Kagera IV 03/07/2024 16:18:43 5 text/html Lucia is a 39 yo female. Pt is here for f/u on miscarriage. Pt states she is still bleeding. Pt was seen in the ER on Sunday. Pt had vaginal US at the hospital. Jodee Zepeda, CN [address], [place], [address], [facility] Glopho IV 05/29/2025 16:46:37 OBGyn Episode Ob Episode Information Episode Created Date Number of Fetuses Patient Bloodtype Patient rh Status Prepregnancy Weight lbs Domestic Partner Domestic Partner Phone Father Name Painter Mirror Status 03/07/20 1 CLOSED Fetus Data First Name Last [...] Post Complications Tubal Sterilization Discharge Date Comments Discharge Information Feeding Method Contraceptive Method Maternal HG B and HCT Levels Ob Episode Information Episode Created Date Number of Fetuses Patient Bloodtype Patient rh Status Prepregnancy Weight lbs Domestic Partner Domestic Partner Phone Father Name Painter Mirror Status 03/07/20 1 CLOSED Fetus Data First Name Last [...] Domestic Partner Domestic Partner Phone Father Name Painter Mirror Status 11/11/19 22 1 CLOSED Fetus Data First Name Last Name Admitted to NICU Weight (g) Sex Living Outcome Pediatric Complications Fetus ID Race Codes Race Delivery Type 2919.99 85 M [id number] Danny Calculation Initial Danny Date Initial Exam [...] Domestic Partner Domestic Partner Phone Father Name Painter Mirror Status 11/11/19 22 1 CLOSED Fetus Data First Name Last Name Admitted to NICU Weight (g) Sex Living Outcome Pediatric Complications Fetus ID Race Codes Race Delivery Type M [id number] Danny Calculation Initial Danny Date Initial Exam [...]
--- OUTSIDE RECORDS SUMMARY | 2025-08-10 20:01 | XMS_ITS | Encounter Summary ---
Author Organization [facility] Address [facility] [place] [address] Care Team Providers Care Sales And Support Center Agent Name Role Phone Keith Jain MD Primary Care Provider [phone] Rut Gandara MD Primary Care Provider [phone] Encounter Details Date Type Department Care Team (Late st Contact Info) Description 05/29/2018 Hospital Follow-up Call [facility] [place], [place] [address] Kerline Berg RN Social History Tobacco Use [...] on filedocumented in this encounter Care Teams Sales And Support Center Agent Relationship Specialty Start Date End Date Keith Jain MD PCP - General 06/01/14 06/04/24 Rut Gandara MD 3 [facility], [address] [address] PCP - General FAMILY PRACTICE 06/05/24 documented as of this encounter
--- OUTSIDE RECORDS SUMMARY | 2025-08-10 20:01 | XMS_ITS | Clinical Summary ---
Author Organization [facility] Address [address] [place] [address] Care Team Providers Care Features Editor Name Role Phone Unknown, Notinfile Unavailable Unavailable Rut Gandara MD Primary Care Provider [phone] Allergies No known active allergies Medications cyclobenzaprine (FLEXERIL) 10 mg tablet Take 1 tablet (10 mg total) by mouth 3 (three) times a day as needed for muscle spasms for up to 20 doses 20 tablet 04/01/20 21 Active lidocaine (LIDODERM) 5 %Indications:Pain Place 1 patch on the skin daily Use patch for 12 hours on, 12 hours off. Discard after each use 7 patch 04/01/20 21 Active dicyclomine (BENTYL) 20 mg tablet Take 1 tablet (20 mg total) by mouth 2 (two) times a day 20 tablet 12/22/19 22 Active ondansetron ODT (ZOFRAN-ODT) 4 mg disintegrating tablet Take 1 tablet (4 mg total) by mouth every 8 (eight) hours as needed for vomiting or nausea 20 tablet 10/10/19 25 Active HYDROcodone-acetam inophen (NORCO) 5-325 mg per tabletIndications: Pain Take 1 tablet by mouth every 6 (six) hours as needed for pain 12 tablet 10/10/19 25 Active docusate sodium (COLACE) 100 mg capsuleIndications :constipation Take 1 capsule (100 mg total) by mouth every 12 (twelve) hours 60 capsule 10/10/19 Active chlorhexidine (PERIDEX) 0.12 % oral rinse Apply 15 mL to the mouth or throat 2 (two) times a day 120 mL 04/20/20 Active lidocaine viscous (XYLOCAINE) 2 % solutionIndication s:Mouth Irritation Apply 10 mL to the mouth or throat 3 (three) times a day as needed (for mouth/dental pain) 100 mL 04/20/20 Active amoxicillin-clavul anate (AUGMENTIN) 875-125 mg per tablet Take 1 tablet by mouth every 12 (twelve) hours 14 tablet 04/20/20 Active oxyCODONE (ROXICODONE) 5 mg immediate release tabletIndications: Pain Take 1 tablet (5 mg total) by mouth every 6 (six) hours as needed for pain (Severe pain) 8 tablet 05/28/20 Active acetaminophen (TYLENOL) 500 mg tablet Take 2 tablets (1,000 mg total) by mouth every 6 (six) hours as needed for pain 30 tablet 05/28/20 Active ibuprofen (ADVIL,MOTRIN) 600 mg tablet Take 1 tablet (600 mg total) by mouth every 6 (six) hours as needed for pain 30 tablet 05/28/20 Active PNV with [id number] 27 mg iron- 1 mg tablet Take 1 tablet by mouth daily 30 tablet 05/28/20 Active polyethylene glycol (MIRALAX) 17 gram/dose bulk powder 17 g/dose, 1 to 3 times a day, p.o., PRN constipation 1700 g 05/28/20 Active Encounters Date Type Department Care Team Description 06/01/2025 3:45 PM CDT Lab [facility] Lab [address] [place] [id number] of unknown anatomic location 05/27/2025 11:04 PM CDT - 05/28/2025 2:39 AM CDT Emergency [address] [address] Kati Thrasher MD of unknown anatomic location (Primary Dx); Vaginal bleeding; Pelvic pain; Positive test Discharge Disposition: Discharge to home or self care from Last 3 Months Immunizations Immunization Administration Dates Next Due Pfizer SARS-CoV-2 Monovalent Vaccination (12+ Yrs) PURPLE 07/05/2021 Social History Tobacco Use Types Packs/Day Years Used Date Smoking Tobacco: Never Assessed Personal Safety Answer Date Recorded Have you ever been in or are you currently in a harmful physical or emotional relationship or is someone making you feel afraid or unsafe? Denies 05/27/2025 Comments No Sex and Gender Information Value Date Recorded Sex Assigned at Not on file Legal Sex Female 7:05 PM [employer] Gender Identity Not on file Sexual Orientation Not on file Last Filed Vital Signs Vital Sign Reading Time Taken Comments Blood Pressure 143/91 05/28/2025 1:30 AM CDT Pulse 64 05/28/2025 2:00 AM CDT Temperature 36.8 C (98.2 F) 05/27/2025 9:54 PM CDT Respiratory Rate 18 05/28/2025 1:30 AM CDT Oxygen Saturation 100% 05/28/2025 2:00 AM CDT Inhaled Oxygen Concentration - - Weight 77.4 kg (170 lb 10.2 oz) 04/20/2025 6:55 PM CDT Height 160 cm (5' 3) 10/09/2024 9:23 PM [employer] Body Mass Index 30.23 10/09/2024 9:23 PM [employer] Plan of Treatment Health Maintenance Due Date Last Done Comments Cervical Cancer Screening 1987 Depression Screening 1987 Hepatitis C Screening 1987 DTaP/Tdap/Td Vaccine (5 - Tdap) 1998 10/28/1991, 09/05/1991, 08/07/1988, Additional history exists Varicella Vaccines (1 of 2 - 13+ 2-dose series) 2000 Regular Well Visit/Exam 18-64 2005 HPV Vaccines (1 - 3-dose SCDM series) 2014 Covid-19 Vaccine (2024- season) 2025 07/05/2021 Influenza Vaccine (#1) 2025 07/24/2018 Hepatitis B Screening Completed 10/21/1998 , 04/09/1998, 01/14/1998 Pneumococcal vaccine <65 Aged Out No longer eligible based on patient's age to complete this topic Procedures Procedure Name Priority Date/Time Associated Diagnosis Comments HCG, BLOOD, QUANTITATIVE STAT 06/01/2025 3:51 PM CDT of unknown anatomic location URINALYSIS, MICROSCOPIC ONLY STAT 05/28/2025 1:30 AM CDT URINALYSIS AND REFLEX TO MICROSCOPIC AND CULTURE STAT 05/28/2025 1:30 AM CDT US OB TRANSVAGINAL ED 05/27/2025 9: 22 PM CDT ABO/RH STAT 05/27/2025 9:03 PM CDT POCT HCG, URINE Routine 05/27/2025 7:44 PM CDT POCT HCG, URINE Routine 05/27/2025 7:41 PM CDT EGFR STAT 05/27/2025 7:32 PM CDT HCG, BLOOD, QUANTITATIVE STAT 05/27/2025 7:32 PM CDT DIFFERENTIAL AUTO STAT 05/27/2025 7:3 2 PM CDT COMPREHENSIVE METABOLIC PANEL STAT 05/27/2025 7:32 PM CDT CBC WITH AUTO DIFFERENTIAL STAT 05/27/2025 7:32 PM CDT from Last 3 Months Results * (ABNORMAL) hCG, blood, quantitative (06/01/2025 3:51 PM CDT) hCG, quant 120.0(H) 0.0 - 5.0 IUnits/L Comment: Interpretive Data Male: < 5 IU/L Non- premenopausal Female: <5 IU/L The Chong hCG Beta Quant assay procedure was used. Results from different manufacturers or methods may not be comparable. Serial testing should be performed using the same method. Interpretive Data was last revised on 2023 Blood 06/01/2025 3:51 PM CDT 06/01/2025 4:07 PM CDT Kati Thrasher MD LAB BLOOD ORDERABLES Fin al Result Performing Organization Address [facility] Co de Phone Number KADEEM SANCHEZ [address] [place] [address] * (ABNORMAL) Urinalysis reflex to microscopic and culture Urine (05/28/2025 1:30 AM CDT) Color, ur Yellow Yellow Clarity, ur Clear Clear [facility] Specific gravity, ur 1.017 1.003 - 1.030 [facility] pH, urine 6.0 [facility] Comment: Interpretive Data U rine pH is [...] last revised on 2017 Protein, ur ql Negative Negative [facility] Glucose, ur ql Negative Negative [facility] Ketones, ur Trace Negative [facility] Bilirubin, ur Negative Negative [facility] Blood, ur 3+(A) Negative [facility] Urobilinogen, ur <2.0 <2.0 mg/dL [facility] Nitrite, ur Negative Negative [facility] Leukocyte esterase, ur Negative Negative [facility] UA reflex comment Reflex to microscopic UA will be performed. [facility] Urine 05/28/2025 1:30 AM CDT 05/28/2025 1:32 AM CDT Kati Thrasher MD LAB MICROBIOLOGY - GENER AL ORDERABLES Final Result KADEEM SANCHEZ [address] [place] [address] * (ABNORMAL) Urinalysis, microscopic only (05/28/2025 1:30 AM CDT) WBC, ur 0-5 0 - 5 /HPF RBC, ur 3-5(A) 0 - 2 /HPF [facility] Epithelial cells, squamous, ur 1-5 0 - 5 /HPF [facility] Mucous, ur Present(A) [facility] Culture Reflex Comment Reflex conditions for urine culture (WBC >10) not met. [facility] Urine 05/28/2025 1:30 AM CDT 05/28/2025 1:32 AM CDT us Kati Thrasher MD LAB URINE ORDERABLES Fin al Result [facility] [address] [facility] Department [place] [address] * US Ob Transvaginal (05/27/2025 9:22 PM CDT) Anatomical Region Laterality Modality Abdomen N/A Ultrasound 05/27/2025 10:5 5 PM CDT Narrative 05/27/2025 11:03 PM CDT EXAM DESCRIPTION: US OB TRANSVAGINAL REASON FOR STUDY: Vaginal bleeding, initial exam, Vaginal bleeding, abdominal pain, positive Beta-hC on May 27, 2025. TECHNIQUE: Transvaginal images acquired of the pelvis. COMPARISON: Pelvic ultrasound of October 10, 2024. FINDINGS: LMP: March 27, 2025 Clinical gestational age: 8 weeks 5 days Clinical estimated Due Date: January 01, 2026 Intrauterine gestational sac: Absent Yolk sac: Absent Subchorionic bleed: Not visualized Placenta: Not identified pole: Absent Mean sac diameter: Not applicable [place]-rump length: Not applicable heart rate: No cardiac activity seen Gestational age by this ultrasound: Not applicable CARMELA by this ultrasound: Not applicable Uterus: The uterus is anteverted , measuring 10.4 x 5.1 x 6.2 cm. The endometrium is thickened and mildly heterogeneous measuring up to 16 mm. The cervix is unremarkable. Right Ovary/Adnexa: The right ovary measures 3.3 x 2 x 2.9 cm. The right ovary appears unremarkable. No adnexal mass. There is poor color and pulsed wave Doppler documentation within the right ovary, likely secondary to positioning. Left Ovary/Adnexa: The left ovary measures 2 x 1.5 x 1.9 cm. There is documentation of color Doppler flow in the left ovary. The left ovary appears unremarkable. No adnexal mass. Free Fluid: There is trace free fluid in the pelvis. Other Findings: None. IMPRESSION: No intrauterine identified. No adnexal mass seen. Differential diagnosis includes early normal , incomplete spontaneous or occult ectopic . Recommend clinical correlation, serial beta HCG evaluation and repeat pelvic ultrasound as clinically indicated. THIS IS AN ELECTRONICALLY VERIFIED FINAL REPORT 05/27/2025 11:03 PM - Electronically signed by Jodee Ovalles M.D. SN T: Report ID: [id number] Reading Location: [id number] Procedure Note Jodee Ovalles MD - 05/27/2025 EXAM DESCRIPTION: US OB TRANSVAGINAL REASON FOR STUDY: Vaginal bleeding, initial exam, Vaginal bleeding, abdominal pain, positive Beta-hC on May 27, 2025. TECHNIQUE: Transvaginal images acquired of the pelvis. COMPARISON: Pelvic ultrasound of October 10, 2024. FINDINGS: LMP: March 27, 2025 Clinical gestational age: 8 weeks 5 days Clinical estimated Due Date: January 01, 2026 Intrauterine gestational sac: Absent Yolk sac: Absent Subchorionic bleed: Not visualized Placenta: Not identified pole: Absent Mean sac diameter: Not applicable [place]-rump length: Not applicable heart rate: No cardiac activity seen Gestational age by this ultrasound: Not applicable CARMELA by this ultrasound: Not applicable Uterus: The uterus is anteverted , measuring 10.4 x 5.1 x 6.2 cm. The endometrium is thickened and mildly heterogeneous measuring up to 16 mm.The cervix is unremarkable. Right Ovary/Adnexa: The right ovary measures 3.3 x 2 x 2.9 cm. Theright ovary appears unremarkable. No adnexal mass. There is poor color andpulsed wave Doppler documentation within the right ovary, likely secondary to positioning. Left Ovary/Adnexa: The left ovary measures 2 x 1.5 x 1.9 cm. There is documentation of color Doppler flow in the left ovary. The left ovaryappears unremarkable. No adnexal mass. Free Fluid: There is trace free fluid in the pelvis. Other Findings: None. IMPRESSION: No intrauterine identified. No adnexal mass seen. Differential diagnosis includes early normal , incompletespontaneous or occult ectopic . Recommend clinical correlation,serial beta HCG evaluation and repeat pelvic ultrasound as clinically indicated. THIS IS AN ELECTRONICALLY VERIFIED FINAL REPORT 05/27/2025 11:03 PM - Electronically signed by Jodee Ovalles M.D. SN T: Report ID: [id number] Reading Location: [id number] James LIU IMG OB US PROCEDURES Final R esult * ABO/Rh (05/27/2025 9:03 PM CDT) ABO/Rh A Positive Blood 05/27/2025 9:03 PM CDT 05/27/2025 9:10 PM CDT Kati Thrasher MD LAB BLOOD BANK TEST ORDE RABLES Final Result KADEEM [address] [facility] Department of Laboratories [place], [place] [id number] * (ABNORMAL) POCT hCG, urine (05/27/2025 7:44 PM CDT) HCG, ur, POC Positive(A) Negative Lot Number [id number] QC Backgroud Clear Acceptable QC Control Line Acceptable Urine 05/27/2025 7:44 PM CDT Kati Thrasher MD POINT OF CARE TEST ORDER LIBBY Final Result * POCT hCG, urine (05/27/2025 7:41 PM CDT) HCG, ur, POC Negative Negative Lot Number [id number] QC Backgroud Clear Acceptable QC Control Line Acceptable Urine 05/27/2025 7:41 PM CDT Kati Thrasher MD POINT OF CARE TEST ORDER LIBBY Final Result * eGFR (05/27/2025 7:32 PM CDT) [facility] eGFR >90 >=60 mL/min/1. 73 m2 Comment: [...] interpretive data was last reviewed 2021. Blood 05/27/2025 7:32 PM CDT 05/27/2025 7:36 PM CDT us Kati Thrasher MD LAB BLOOD ORDERABLES Fin al Result [facility] [address] [facility] Department of Laboratories [place], [place] [id number] * (ABNORMAL) Differential, auto (05/27/2025 7:32 PM CDT) [facility] Neutrophil abs 4.87 1.50 - 6.50 K/cumm Imm gran abs 0.02 0.00 - 0.10 K/cumm [facility] Lymphocyte abs 1.90 0.80 - 3.30 K/cumm [facility] Monocyte abs 0.87(H) 0.20 - 0.80 K/cumm [facility] Eosinophil abs 0.27 0.00 - 0.50 K/cumm [facility] Basophil abs 0.05 0.00 - 0.10 K/cumm [facility] Neutrophil pct 61.0 % KADEEM Comment: Interpretive Data Percent cell count reference ranges are not reported, since discordance with absolute values may lead to misinterpretation of CBC data. Current Interpretive Data was last revised on 2017. Imm gran pct 0.3 % KADEEM Comment: Interpretive Data Percent cell count reference ranges are not reported, since discordance with absolute values may lead to misinterpretation of CBC data. Current Interpretive Data was last revised on 2017. Lymphocyte pct 23.8 % KADEEM Comment: Interpretive Data Percent cell count reference ranges are not reported, since discordance with absolute values may lead to misinterpretation of CBC data. Current Interpretive Data was last revised on 2017. Monocyte pct 10.9 % KADEEM Comment: Interpretive Data Percent cell count reference ranges are not reported, since discordance with absolute values may lead to misinterpretation of CBC data. Current Interpretive Data was last revised on 2017. Eosinophil pct 3.4 % KADEEM Comment: Interpretive Data Percent cell count reference ranges are not reported, since discordance with absolute values may lead to misinterpretation of CBC data. Current Interpretive Data was last revised on 2017. Basophil pct 0.6 % KADEEM Comment: Interpretive Data Percent cell count reference ranges are not reported, since discordance with absolute values may lead to misinterpretation of CBC data. Current Interpretive Data was last revised on 2017. Blood 05/27/2025 7:32 PM CDT 05/27/2025 7:36 PM CDT Kati Thrasher MD LAB BLOOD ORDERABLES Fin al Result [facility] [address] [facility] Department [place] [address] * (ABNORMAL) CBC with auto differential (05/27/2025 7:32 PM CDT) WBC 7.98 3.80 - 9.90 K/cumm Hgb 11.7(L) 11.9 - 15.5 g/dL [facility] Hct 35.9 35.6 - 45.5 % [facility] Plt 255 150 - 400 K/cumm [facility] MPV 10.3 9.1 - 12.3 fL [facility] RBC 3.72(L) 3.90 - 5.20 M/cumm [facility] MCV 96.5(H) 81.3 - 96.4 fL [facility] MCH 31.5 27.1 - 33.3 pg [facility] MCHC 32.6 32.3 - 35.7 g/dL [facility] RDW CV 13.3 11.1 - 14.9 % [facility] RDW SD 47.8 35.7 - 48.1 fL [facility] NRBC abs 0.00 0.00 - 0.01 K/cumm [facility] Blood Venous blood specimen / Unknown 05/27/2025 7:32 PM CDT 05/27/2025 7:36 PM CDT Kati Thrasher MD LAB BLOOD ORDERABLES Fin al Result Performing Organization Address [facility] de Phone Number [address] [employer] [place], [place] [id number] * (ABNORMAL) hCG, blood, quantitative (05/27/2025 7:32 PM CDT) Pathologist [facility] hCG, quant 2,396.0(H ) 0.0 - 5.0 IUnits/L Comment: Interpretive Data Male: < 5 IU/L Non- premenopausal Female: <5 IU/L The [employer] hCG Beta Quant assay procedure was used. Results from different manufacturers or methods may not be comparable. Serial testing should be performed using the same method. Interpretive Data was last revised on 2023 Blood 05/27/2025 7:32 PM CDT 05/27/2025 7:36 PM CDT us Víctor Barriga MD LAB BLOOD ORDERABLES Final Result Performing Organization Address City/[facility]/ZIP Co de Phone Number [address] [address] * Comprehensive metabolic panel (05/27/2025 7:32 PM CDT) Pathologist [facility] Sodium 136 135 - 145 mmol/L Potassium, pl 4.3 3.3 - 4.9 mmol/L [facility] Chloride 104 97 - 110 mmol/L [facility] CO2 23 22 - 32 mmol/L [facility] Anion gap 9 2 - 15 mmol/L [facility] BUN 14 6 - 25 mg/dL [facility] Creatinine 0.78 0.60 - 1.10 mg/dL [facility] Glucose 99 70 - 199 mg/dL [facility] Comment: Interpretive Data Fasting glucose >/= 126 [...] interpretive data was last revised 2022. Calcium 9.2 8.5 - 10.3 mg/dL [facility] Bilirubin, total 0.3 0.1 - 1.2 mg/dL [facility] Protein, pl 7.5 6.5 - 8.5 g/dL [facility] Albumin 4.2 3.5 - 5.0 g/dL [facility] Alk phos 56 40 - 130 Units/L [facility] ALT 17 7 - 45 Units/L [facility] AST 32 10 - 45 Units/L [facility] Blood 05/27/2025 7:32 PM CDT 05/27/2025 7:36 PM CDT us Kati Thrasher MD LAB BLOOD ORDERABLES Fin al Result [facility] [address] [facility] Department [place] [address] from Last 3 Months Insurance [facility] [employer] Address: [facility] [id number] [place] [address] [facility] Care Teams Features Editor Relationship Specialty Start Date End Date Rut Gandara MD [address] [place] [address] PCP - General Stabber 07/14/25 Unknown, Notinfile 04/15/22
--- OUTSIDE RECORDS SUMMARY | 2025-08-10 20:01 | XMS_ITS | Encounter Summary ---
Author Organization [facility] Address [facility] [place] [address] Care Team Providers Care Speech Lang Path Therapist Name Role Phone Keith Jain MD Primary Care Provider [phone] Rut Gandara MD Primary Care Provider [phone] Encounter Details Date Type Department Care Team (Late st Contact Info) Description 05/30/2018 Hospital Follow-up Call [facility] [place] [address] Katherine Degroot RN Social History Tobacco Use [...] on filedocumented in this encounter Care Teams Speech Lang Path Therapist Relationship Specialty Start Date End Date Keith Jain MD PCP - General 06/01/14 06/04/24 Rut Gandara MD [address] [facility], [address] [address] PCP - General FAMILY PRACTICE 06/05/24 documented as of this encounter
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
--- OUTSIDE RECORDS SUMMARY | 2025-08-10 20:01 | XMS_ITS | Data Portability ---
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 [id number] Colt Todd [id number] Colt Todd 08/03/2025 1 [facility] (MEDICAID HMO) [id number] Colt Peralesvis [id number] Colt Todd 12/05/2018 1 *SELF PAY* As holly Todd 07/07/2025 1 [facility] (MEDICAID O) [id number] Colt Todd [id number] Colt Todd 01/02/2023 3 *SELF PAY* As erica Chebrice 02/25/2019 SLIDING FEE SCHEDULE - DISCOUNT Colt Todd 07/07/2025 1 [employer] [id number] Colt Todd [id number] Colt Todd 07/20/2025 2 [place] [facility] [facility] [place] Colt Todd [id number] Colt Todd 07/07/2025 1 [facility] (MEDICAID HMO) [id number] Colt Todd [id number] Colt Todd Notes Date Note Type Note Provider Name and Address Organization Details Recorded Time 06/12/2022 text/html ROS as noted in the HPI 36 yo F presenting via phone visit for sore throat and hoarseness which started 2 days ago. She has been taking cough medicine but this has not helped. Patient called off work today. Patient denies fever, chills, SOB, chest pain, ear pain, rhinorrhea. Patient has not tested for COVID. Kenzie Reilly MD Attn: [address], [place], [address], [facility] 06/16/2022 13:46:43 01/02/2023 text/html ROS as noted in the HPI Colt Todd is a 36 yo with no PMHx [...] PITTS DO Attn: Accounting,[address], [place], [address], [facility] 01/02/2023 22:11:05 03/23/2023 text/html ROS as noted in the HPI 37 yo F w/ hx of seasonal [...] numbness/tingling. Marilyn Boland MD Attn: [address] [place], [address], [facility] 03/26/2023 16:02:44 04/08/2024 text/html ROS as noted in the HPI 37 yo F w/ no pmhx presents [...] pain. Brett Marks MD Attn: [address] [place], [address], [facility] 04/14/2024 15:44:54 07/07/2025 text/html ROS as noted in the HPI 39 yo F presents to the office for an annual visit. No acute concerns. Patient would like refill flonase. She continues to have chronic L knee pain that is worsening with the cold. She takes iron supplements since a miscarriage 2 months and follows with an DISPATCHER [employer]ICE OR WORK at [facility].Pt denies having any fevers, chills, SOB, chest pain, N/V, or abdominal pain. TALIA GRIJALVA MD Attn: [address] [place], [address], [facility] 07/09/2025 13:38:47 OBGyn Episode No OBEpisode recorded.
--- OUTSIDE RECORDS SUMMARY | 2025-08-10 20:01 | XMS_ITS | Clinical Summary ---
Author Organization [facility] Address [facility] [place] [address] Care Team Providers Care Supervisor Personnel Clerks Name Role Phone Rut Gandara MD Primary Care Provider [phone] Allergies No known active allergies Medications vitamin, [...] Noted Date Diagnosed Date (spontaneous vaginal delivery) 05/17/2018 Normal labor 05/15/2018 Encounters Date Type Department Care Team Description 07/24/2025 8:00 AM MEAT COOLER Office Visit [facility] [address] [place] [address] Hollis Sotomayor, PT Initial Evaluation 07/24/2025 Travel from Last 3 Months Immunizations Immunization Administration Dates Next Due Fluarix [...] 10:47 PM CDT Height 160 cm (5' 3) 05/14/2018 10:47 PM CDT Body Mass Index 28.87 05/14/2018 10:47 PM CDT Plan of Treatment Health Maintenance Due Date Last Done Comments Cervical Cancer Screening Pap Smear (Age 30 to 64) Every 3 Years 1987 Annual Physical 1990 Hepatitis C 2005 HPV Vaccines (1 - 3-dose SCDM series) 2014 Cervical Cancer Screening Pap with HPV Testing (Age 30 to 64) Every 5 Years 2017 Cervical Cancer Screening with HPV 2017 COVID-19 Vaccine ( - season) 2025 07/05/2021 Influenza Adult (#1) 2025 07/24/2018 DTaP, Tdap and Td Vaccines (2 - Td or Tdap) 07/07/2035 07/07/2025, 10/28/1991, 09/05/1991, Additional history exists Hepatitis B Vaccines Completed 10/21/1998, 04/09/1998, 01/14/1998 Hepatitis A Vaccines Aged Out No long er eligible based [...] patient's age to complete this topic Insurance [employer] MEDICAID MEDICAID Advance Directives * Full Code (Latest Code Status on File) Date Activated Date Inactivated Comments 05/15/2018 12:50 PM 05/15/2018 10:45 PM Care Teams Supervisor Personnel Clerks Relationship Specialty Start Date End Date Rut Gandara MD [address] [address] PCP - General FAMILY PRACTICE 06/05/24
--- OUTSIDE RECORDS SUMMARY | 2025-08-10 20:02 | XMS_ITS | Continuity of Care Document ---
Author Organization [facility] [place] Address [address] [place] [address] Care Team Providers Care Bar Helper Name Role Phone [facility] Imaging Technologist Assessment No assessment recorded. Plan of Treatment Reminders Order Date Submit Date Provider Last Modified By Organization Details Last Modified Time Details Appointments None record ed. Lab None record ed. Referral None record ed. Procedures None record ed. Surgeries None record ed. Imaging None record ed. Medication Orders None record ed. Patient TargetsNo targets recorded. Patient InstructionsNo instructions recorded. Reason for Referral None Reported. Problems Name Problem SNOMED Code Status Onset Date Resolution Date Notes Provider Name and Address Organization Details Recorded Time Gestatio n period, 38 weeks 53268108 Completed 201709/02/2018 38 weeks gestatio n of pregnanc y; Progress : Stable Added By: Camelia Galloway Add to Current Problems : NO ProblemS tatus: Resolve Not Available [facility] 2 20:51:43 Normal pregnanc y in [facility] [id number] 4106 Completed 201709/02/2018 [facility]; Progress : Stable Added By: Camelia Galloway Add to Current Problems : NO ProblemS tatus: Resolve Not Available [facility] 2 20:51:43 Normal pregnanc y 60188498 Completed 201701/11/2024 Medical visit for normal pregnanc y; Location : None Progress : Stable Added By: Camelia Galloway Add to Current Problems : YES ProblemS tatus: Current Richard Thompson null, [place] [facility] [employer] 4 16:17:00 Antenata l screenin [...] Date : 10/30/19 18 Not Available [facility] 2 20:51:44 Uterine size for dates discrepa ncy Completed 201707/06/2018 Uterine size-gerda e discrepa ncy, third trimeste r; Progress : Stable Added By: Kaitlin Paris Add to Current Problems : NO ProblemS tatus: Resolve Not Available [facility] 2 20:51:44 Poor growth affectin g manageme nt 677434167 Completed 201707/06/2018 Small for dates; Location : None Progress : Stable Added By: Kaitlin Paris Add to Current Problems : YES ProblemS tatus: Resolve Not Available [facility] 2 20:51:43 Finding of pattern of menstrua l cycle Completed 201805/07/2023 Excessiv e and frequent menstrua tion with irregula r cycle; Progress : Stable Added By: Kaitlin Paris Add to Current Problems : YES ProblemS tatus: Current Erika Britsch null[place] [facility] 3 01:21:52 Acute vaginiti s 44569899 Completed 201805/07/2023 Acute vaginiti s; Progress : [...] [place] [facility] 3 01:22:09 Screenin g for malignan t neoplasm of cervix Completed 201805/07/2023 Encounte r for screenin g for malignan t neoplasm of cervix; Progress : Stable Added By: Jenni Cain Add to Current Problems : YES ProblemS tatus: Current Erika Britsch null, [place] [facility] 3 01:21:49 Atypical squamous cells of undeterm ined signific ance on cervical Papanico laou smear 193425784 Completed 201805/07/2023 Atypical squamous cells of undeterm ined signific ance on cytologi c smear of cervix (ASC-US) ; Progress : Stable Added By: Kaitlin Paris Add to Current Problems : YES ProblemS tatus: Current Erika Britsch null, [place] [facility] 3 01:22:12 Human papillom avirus deoxyrib onucleic acid detected , high risk on cervical specimen 654325487 Completed 201805/07/2023 Cervical high risk human papillom avirus (HPV) DNA test positive ; Progress : Stable Added By: Kaitlin Paris Add to Current Problems : YES ProblemS tatus: Current Erika Mariasch null, [place] [facility] 3 01:22:14 Pregnanc y detectio n examinat ion Completed 201805/07/2023 Encounte r for pregnanc y test, result positive ; Progress : Stable Added By: Ashley Smith Add to Current Problems : YES ProblemS tatus: Current Erika Britsch null, [place] [facility] 3 01:22:17 Amenorrh ea 06651695 Completed 201805/07/2023 Amenorrh ea, unspecif ied; Progress [...] HEALTH IV 3 01:22:04 Syphilis test finding 568132887 Completed 201905/07/2023 Encounte r for screenin g [...] of Last Pap Smear completed Becky Burns [place] [facility] 01/05/2023 16:34:45 procedure on eye completed Cecily Vela [facility] 09/30/2021 00:59:25 Imaging Results None recorded. Procedure [...] 150 mg/mL intramus cular Suspensi on RxNorm: [id number] Allow Substitu tion: True Refill Denied: No Edited by: viola yu(Jenni Hoyos ) on 11/03/19 20 Stopped by: hmussema nn(Jenni Hoyos ) on Not Available Not Available [...] ne propionat e 50 mcg/actua tion nasal spray,marta pension SHAKE LIQUID AND USE 1 SPRAY [...] Diclegis 10mg/10m g Tablets, Delayed Release RxNorm: [id number] Allow Substitu tion: True Refill Denied: No Not Available Not Available Not Available Diclegis One PO QHS 10/29 completed Diclegis 10mg/10m g Tablets, Delayed Release RxNorm: [id number] Allow Substitu tion: True Refill Denied: No [...] Available Not Available Vitals Date Recorded Body weight Body mass index (BMI) Body height Systolic And Diastolic Provider Name and Address Organization Details Last Updated DateTime 05/29/2025 91834.83 g 30 kg/m2 160.02 cm 100/60 mm[Hg] Solis Antony [employer] 05/29/2025 16:22:43 Social History Question Answer Notes LastModified by [employer] Details LastModified Time Tobacco Smoking Status Never Smoker Erika cano, [facility] 03/09/2023 15:49:31 If You Are , [...] Functional Status Question Answer Note LastModified by [employer] Details LastModified Time Do you use any [...] ICD10 Code Diagnosis IMO Codes Diagnosis Note [id number] Jodee Arzate-Frederick is, [facility] [place] [address] [facility] [place] [id number] 05/29/2025 15:37:41 05/29/2025 17:31:12 Past history of miscarriage 397036472 Z87.59 [id number] SAB dx at [facility] on Sunday 05/27 presents today with vaginal bleeding 3 pads a day, discussed normalcy of heavy period like bleeding for 1-2 weeks after SABHas Hcg quant scheduled to be drawn tomorrow at [facility] precaution s reviewed Health Concerns Section Related Observation LastModified by Organization Detai ls LastModified Time None Recorded Concern Status LastModified by Organization Details LastModified Time None Recorded Payers Encounter Date Sequence Insurance Name Policy Number Policy Goldstein Covered Member ID Goldstein Member ID Guarantor Name 05/29/2025 1 [facility] (MEDICAID HMO) [id number] Lucia Bowman [id number] Lucia Bowman Notes Date Note Type Note Provider Name and Address Organization Details Recorded Time 05/29/2025 text/html Lucia is a 39 yo female. Pt is here for f/u on miscarriage. Pt states she is still bleeding. Pt was seen in the ER on Sunday. Pt had vaginal US at the hospital. Jodee Zepeda, CN [address] [facility], [place], [address], [facility] - [employer] [facility] 05/29/2025 16:46:37 OBGyn Episode No OBEpisode recorded.
[2025-08-10 20:03] VITALS: BP 127/84; PULSE 79; RESP 20; TEMP 37; O2SAT 100
--- NOTE | 2025-08-10 22:03 | ED.FEVER ---
HPI - Fever General Chief Complaint: Fever Stated Complaint: fever, body aches, sore throat yesterday Time Seen by Provider: 08/10/25 21:46 History of Present Illness HPI Narrative: 39-year-old presenting with flu-like symptoms including subjective fever, myalgias and sore throat since Sunday. 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 Tried quqh-gkv-ditpztt medications without significant relief. Denies any chills, chest pain, shortness a breath, neck pain, neck stiffness, difficulty swallowing. Related Data Home Medications ?Medication ?Instructions ?Recorded ?Confirmed ?Last Taken ?Type No Home Medications 01/02/25 01/02/25 Unknown History Allergies Allergy/AdvReac Type Severity Reaction Status Date / Time No Known Allergies Allergy Verified 08/10/25 20:01 Review of Systems Review of Systems: As reviewed above in HPI Exam Narrative: GENERAL: [Well-appearing, well-nourished, and in no acute distress.] HEAD: [Normocephalic, atraumatic.] EYES: [PERRLA and EOMI.] ENT: Nares clear, no rhinorrhea or epistaxis. Mucous membranes moist. posterior oropharynx without any erythema, exudates, edema. NECK: Supple. CHEST: No respiratory distress, symmetric chest rise ABDOMEN: nondistended EXTREMITIES: Normal range of motion. [No edema.] SKIN: Warm, dry, no rash. NEURO: [No focal deficits]. Alert and oriented [x3.] PSYCH: [Normal mood and affect.] Course Vital Signs Vital signs: Vital Signs Temperature 37.0 C 08/10/25 20:03 Pulse Rate 79 08/10/25 20:03 Respiratory Rate 20 08/10/25 20:03 Blood Pressure 127/84 08/10/25 20:03 Pulse Oximetry 100 08/10/25 20:03 Temperature 36.4 C 08/10/25 23:04 Pulse Rate 94 08/10/25 23:04 Respiratory Rate 16 08/10/25 23:04 Blood Pressure 115/65 08/10/25 23:04 Pulse Oximetry 100 08/10/25 23:04 [facility] MDM Narrative Medical decision making narrative: 39-year-old presenting with flu-like symptoms including subjective fever, myalgias and sore throat since Sunday. 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 Tried qpkn-jjx-rfrmaur medications without significant relief. Denies any chills, chest pain, shortness a breath, neck pain, neck stiffness, difficulty swallowing. patient has an unremarkable physical examination symptoms consistent with Strep, COVID, flu, RSV or other viral disease. Patient given Toradol p.o. and swabs for strep and viral panel obtained. tested positive for COVID. Given return precautions and instructions on anti-inflammatory and caxs-fva-jjvswmq remedies. Safe for discharge. Differential Diagnosis Differential Diagnosis: Strep, COVID, flu, RSV or other viral disease. Lab Data MDM Lab Attestation statement: I personally reviewed the patient's lab results. Labs: Lab Results 08/10/25 Range/Units 21:44 Influenza A (RT-PCR) Negative (Negative) Influenza B (RT-PCR) Negative (Negative) RSV (RT-PCR) Negative (Negative) SARS-CoV-2 RNA (RT-PCR) Positive A (Negative) Group A Strep (PCR) Not detected (Negative) Discharge Plan Discharge Clinical Impression: COVID Patient Disposition: Home Condition: Stable Instructions: Antibiotic Form, COVID-19 (Coronavirus Disease 2019) (ED) Additional Instructions: tested positive for COVID. Recommendations are for anti-inflammatories every 6-8 hours including Tylenol and ibuprofen together. Tcrl-qrh-qzxkpnr remedies for cold and flu medicine also would help. Symptoms last up to 10 days usually. Return with any emergent concerns or worsening symptoms, difficulty breathing, losing consciousness, intractable nausea vomiting or dehydration or any other emergent issues otherwise follow-up with regular doctors. Patient Language: Zimbabwean Prescriptions: No Action No Home Medications Follow-up/Referrals: UNKNOWN,DOCTOR [Primary Care Provider] Stand Alone Forms: Work/School Release IP Time of Disposition: 22:33
[2025-08-10 22:14] LABS: Strep Group A RT-PCR NOT DETECTED (Negative)
[2025-08-10] MEDS: KETOROLAC 10 MG TABLET PO (22:19)
[2025-08-10 22:26] LABS: Influenza A QL RT-PCR Negative (Negative); Influenza B QL RT-PCR Negative (Negative); RSV RNA, RT-PCR Negative (Negative); SARS-CoV-2 RNA PCR Positive (Negative)
--- OUTSIDE RECORDS SUMMARY | 2025-08-10 22:40 | XMS_ITS | Encounter Summary ---
Author Organization [facility] Address [facility] [place] [address] Care Team Providers Care Deodorizer Operator Name Role Phone Keith Jain MD Primary Care Provider [phone] Rut Gandara MD Primary Care Provider [phone] Encounter Details Date Type Department Care Team (Late st Contact Info) Description 05/29/2018 Hospital Follow-up Call [facility] [place], [place] [id number] Kerline Berg RN Social History Tobacco Use [...] on filedocumented in this encounter Care Teams Deodorizer Operator Relationship Specialty Start Date End Date Keith Jain MD PCP - General 06/01/14 06/04/24 uRt Gandara MD 3 [facility], [address] [address] PCP - General FAMILY PRACTICE 06/05/24 documented as of this encounter
--- OUTSIDE RECORDS SUMMARY | 2025-08-10 22:40 | XMS_ITS | Clinical Summary ---
Author Organization [facility] Address [address] [place] [address] Care Team Providers Care State Trooper Name Role Phone Unknown, Notinfile Unavailable Unavailable Rut Gandara MD Primary Care Provider [phone] Allergies No known active allergies Medications cyclobenzaprine [...] pain 30 tablet 05/28/20 Active PNV with [id number] 27 mg iron- 1 mg tablet Take 1 tablet by mouth daily 30 tablet 05/28/20 Active polyethylene glycol (MIRALAX) 17 gram/dose bulk powder 17 g/dose, 1 to 3 times a day, p.o., PRN constipation 1700 g 05/28/20 Active Encounters Date Type Department Care Team Description 06/01/2025 3:45 PM CDT Lab [facility] Lab [address] [place] [id number] of unknown anatomic location 05/27/2025 11:04 PM CDT - 05/28/2025 2:39 AM CDT Emergency [address] [address] Kati Thrasher MD of unknown anatomic location [...] on file Legal Sex Female 7:05 PM TIME STUDY ANALYST Gender Identity Not on file Sexual Orientation [...] 160 cm (5' 3) 10/09/2024 9:23 PM TIME STUDY ANALYST Body Mass Index 30.23 10/09/2024 9:23 PM TIME STUDY ANALYST Plan of Treatment Health Maintenance Due Date [...] ORDERABLES Fin al Result Performing Organization Address [facility] Co de Phone Number KADEEM SANCHEZ [address] [place] [address] * (ABNORMAL) Urinalysis reflex to microscopic and culture Urine (05/28/2025 1:30 AM CDT) Color, ur Yellow Yellow Clarity, ur Clear Clear [facility] Specific gravity, ur 1.017 1.003 - 1.030 [facility] pH, urine 6.0 [facility] Comment: Interpretive Data U rine pH is affected by diet, medications, systemic acid-base disturbances, and renal tubular function. pH may affect urinary stone formation. For example, urine pH below 6.0 may help reduce the tendency for calcium phosphate stones and pH greater than 6.0 may reduce the tendency for uric acid stone formation. Source: [facility] Current Interpretive Data was last revised on 2017 Protein, ur ql Negative Negative [facility] Glucose, ur ql Negative Negative [facility] Ketones, ur Trace Negative [facility] Bilirubin, ur Negative Negative [facility] Blood, ur 3+(A) Negative [facility] Urobilinogen, ur <2.0 <2.0 mg/dL [facility] Nitrite, ur Negative Negative [facility] Leukocyte esterase, ur Negative Negative [facility] UA reflex comment Reflex to microscopic UA will be performed. [facility] Urine 05/28/2025 1:30 AM CDT 05/28/2025 1:32 AM CDT Kati Thrasher MD LAB MICROBIOLOGY - GENER AL ORDERABLES Final Result KADEEM SANCHEZ [address] [place] [address] * (ABNORMAL) Urinalysis, microscopic only (05/28/2025 1:30 AM CDT) WBC, ur 0-5 0 - 5 /HPF RBC, ur 3-5(A) 0 - 2 /HPF [facility] Epithelial cells, squamous, ur 1-5 0 - 5 /HPF [facility] Mucous, ur Present(A) [facility] Culture Reflex Comment Reflex conditions for urine culture (WBC >10) not met. [facility] Urine 05/28/2025 1:30 AM CDT 05/28/2025 1:32 AM CDT us Kati Thrasher MD LAB URINE ORDERABLES Fin al Result [facility] [address] [facility] Department [place] [address] * US Ob Transvaginal (05/27/2025 9:22 PM [...] pole: Absent Mean sac diameter: Not applicable [facility]-rump length: Not applicable heart rate: No cardiac [...] Jodee Ovalles M.D. SN T: Report ID: [id number] Reading Location: [id number] Procedure Note Jodee Ovalles MD - 05/27/2025 [...] pole: Absent Mean sac diameter: Not applicable [facility]-rump length: Not applicable heart rate: No cardiac [...] Jodee Ovalles M.D. SN T: Report ID: [id number] Reading Location: [id number] James LIU IMG OB US PROCEDURES Final R esult * ABO/Rh (05/27/2025 9:03 PM CDT) ABO/Rh A Positive Blood 05/27/2025 9:03 PM CDT 05/27/2025 9:10 PM CDT Kati Thrasher MD LAB BLOOD BANK TEST ORDE RABLES Final Result KADEEM [address] [facility] Department of Laboratories [place], [place] [id number] * (ABNORMAL) POCT hCG, urine (05/27/2025 7:44 [...] Result * eGFR (05/27/2025 7:32 PM CDT) [facility] eGFR >90 >=60 mL/min/1. 73 m2 [...] MD LAB BLOOD ORDERABLES Fin al Result [facility] [address] [facility] Department of Laboratories [place], [place] [id number] * (ABNORMAL) Differential, auto (05/27/2025 7:32 PM CDT) [facility] Neutrophil abs 4.87 1.50 - 6.50 K/cumm Imm gran abs 0.02 0.00 - 0.10 K/cumm [facility] Lymphocyte abs 1.90 0.80 - 3.30 K/cumm [facility] Monocyte abs 0.87(H) 0.20 - 0.80 K/cumm [facility] Eosinophil abs 0.27 0.00 - 0.50 K/cumm [facility] Basophil abs 0.05 0.00 - 0.10 K/cumm [facility] Neutrophil pct 61.0 % KADEEM Comment: Interpretive [...] MD LAB BLOOD ORDERABLES Fin al Result [facility] [address] [facility] Department [place] [address] * (ABNORMAL) CBC with auto differential (05/27/2025 7:32 PM CDT) WBC 7.98 3.80 - 9.90 K/cumm Hgb 11.7(L) 11.9 - 15.5 g/dL [facility] Hct 35.9 35.6 - 45.5 % [facility] Plt 255 150 - 400 K/cumm [facility] MPV 10.3 9.1 - 12.3 fL [facility] RBC 3.72(L) 3.90 - 5.20 M/cumm [facility] MCV 96.5(H) 81.3 - 96.4 fL [facility] MCH 31.5 27.1 - 33.3 pg [facility] MCHC 32.6 32.3 - 35.7 g/dL [facility] RDW CV 13.3 11.1 - 14.9 % [facility] RDW SD 47.8 35.7 - 48.1 fL [facility] NRBC abs 0.00 0.00 - 0.01 K/cumm [facility] Blood Venous blood specimen / Unknown 05/27/2025 7:32 PM CDT 05/27/2025 7:36 PM CDT Kati Thrasher MD LAB BLOOD ORDERABLES Fin al Result Performing Organization Address [facility] de Phone Number [address] [employer] [place], [place] [id number] * (ABNORMAL) hCG, blood, quantitative (05/27/2025 7:32 PM CDT) Pathologist [facility] hCG, quant 2,396.0(H ) 0.0 - 5.0 [...] BLOOD ORDERABLES Final Result Performing Organization Address [facility]/ZIP Co de Phone Number [address] [address] * Comprehensive metabolic panel (05/27/2025 7:32 PM CDT) Pathologist [facility] Sodium 136 135 - 145 mmol/L Potassium, pl 4.3 3.3 - 4.9 mmol/L [facility] Chloride 104 97 - 110 mmol/L [facility] CO2 23 22 - 32 mmol/L [facility] Anion gap 9 2 - 15 mmol/L [facility] BUN 14 6 - 25 mg/dL [facility] Creatinine 0.78 0.60 - 1.10 mg/dL [facility] Glucose 99 70 - 199 mg/dL [facility] Comment: Interpretive Data Fasting glucose >/= [...] 2022. Calcium 9.2 8.5 - 10.3 mg/dL [facility] Bilirubin, total 0.3 0.1 - 1.2 mg/dL [facility] Protein, pl 7.5 6.5 - 8.5 g/dL [facility] Albumin 4.2 3.5 - 5.0 g/dL [facility] Alk phos 56 40 - 130 Units/L [facility] ALT 17 7 - 45 Units/L [facility] AST 32 10 - 45 Units/L [facility] Blood 05/27/2025 7:32 PM CDT 05/27/2025 7:36 PM CDT us Kati Thrasher MD LAB BLOOD ORDERABLES Fin al Result [facility] [address] [facility] Department [place] [address] from Last 3 Months Insurance [facility] [employer] Address[facility] [id number] [place] [address] [facility] Care Teams State Trooper Relationship Specialty Start Date End Date Rut Gandara MD [address] [place] [address] PCP - General Global Compensation Director 07/14/25 Unknown, Notinfile 04/15/22
--- OUTSIDE RECORDS SUMMARY | 2025-08-10 22:40 | XMS_ITS | Clinical Summary ---
Author Organization [facility] Address [facility] [place] [address] Care Team Providers Care Touring Production Manager Name Role Phone Rut Gandara MD Primary Care Provider [phone] Allergies No known active allergies Medications vitamin, [...] Department Care Team Description 07/24/2025 8:00 AM INSPECTORS AND REGULATORY OFFICERS Office Visit [facility] [address] [place] [address] Hollis Sotomayor, PT Initial Evaluation [...] patient's age to complete this topic Insurance [place] [employer] MEDICAID Advance Directives * Full Code (Latest Code Status on File) Date Activated Date Inactivated Comments 05/15/2018 12:50 PM 05/15/2018 10:45 PM Care Teams Touring Production Manager Relationship Specialty Start Date End Date Rut Gandara MD [address] [address] PCP - General FAMILY PRACTICE 06/05/24
--- OUTSIDE RECORDS SUMMARY | 2025-08-10 22:40 | XMS_ITS | Encounter Summary ---
Author Organization [facility] Address [facility] [place] [address] Care Team Providers Care Bridge Teacher Name Role Phone Keith Jain MD Primary Care Provider [phone] Rut Gandara MD Primary Care Provider [phone] Encounter Details Date Type Department Care Team (Late st Contact Info) Description 05/30/2018 Hospital Follow-up Call [facility] [place] [address] Katherine Degroot RN Social History Tobacco Use [...] on filedocumented in this encounter Care Teams Bridge Teacher Relationship Specialty Start Date End Date Keith Jain MD PCP - General 06/01/14 06/04/24 Rut Gandara MD 3 [facility], [address] [address] PCP - General FAMILY PRACTICE 06/05/24 documented as of this encounter
[2025-08-10 23:04] VITALS: BP 115/65; PULSE 94; RESP 16; TEMP 36.4; O2SAT 100
== END 2025-08-10 23:05 | disposition home or self-care (01) ==
LOC: ANHED 22:37
PROVIDERS: Emergency Provider Student in an Organized Health Care Education/Training Program
DX: U07.1 COVID-19 (principal)
CPT/HCPCS: 87637; 87651; 99283; A9270